=== PATIENT | male | born 1965 | race Caucasian/White ===

== ENCOUNTER → 2016-07-07 | Outpatient (CLI) | payer OTHER ==
[2016-07-10 11:43] LABS: Alternaria alternata IgE <0.35 kU/L (<0.35); Asperg. fumagatus IgE <0.35 kU/L (<0.35); Asperg. fumagatus IgE Class CLASS 0; Cat Epith & Dander IgE <0.35 kU/L (<0.35); Cat Epith & Dander IgE Class CLASS 0; Clad herbarum IgE <0.35 kU/L (<0.35); Clad herbarum IgE Class CLASS 0; Com. Pigweed IgE <0.35 kU/L (<0.35); Com. Pigweed IgE Class CLASS 0; Common Ragweed IgE Class CLASS 0; Cow's Milk IgE Class CLASS 0; Dermato. farinae IgE <0.35 kU/L (<0.35); Dermato. farinae IgE Class CLASS 0; House Dust (Greer) IgE 0.77 kU/L (<0.35); House Dust (Greer) IgE Class CLASS II; Maple (Box Elder) IgE <0.35 kU/L (<0.35); Maple (Box Elder) IgE Class CLASS 0; Penicillium notatum IgE Class CLASS 0; Timothy Grass IgE <0.35 kU/L (<0.35); Timothy Grass IgE Class CLASS 0
[2016-07-17 08:35] LABS: Mis test requested (Blood) Hypersens.PneumoEval
== END | disposition home or self-care (01) ==
LOC: LABWHC1 14:39
PROVIDERS: ATTEND Internal Medicine Sleep Medicine
DX: B44.89 Other forms of aspergillosis (principal); R53.83 Other fatigue
CPT/HCPCS: 36415; 82785; 84132; 86001; 86003; 86606; 86609; 86644

== ENCOUNTER 2016-11-28 16:41 | Emergency (ER) | payer OTHER ==
--- NOTE | 2016-11-28 16:50 | ED ---
Nausea/Vomiting/Diarrhea HPI <Afshin Garcia - Last Filed: 11/28/16 20:23> - General Source: RN notes reviewed, old records reviewed <Gretchen Godwin - Last Filed: 11/28/16 20:35> - General Stated complaint: Nausea Time Seen by Provider: 11/28/16 16:47 - History of Present Illness Initial comments: 51-year-old male presents emergency department with chief complaint of nausea and vomiting for the past few weeks. Patient also reports that he's had some intermittent right upper quadrant tenderness. He has a history of appendectomy and cholecystectomy. Patient has past medical history of asthma, COPD, history of CVA, diabetes, hypertension, hyperlipidemia and memory impairment. Patient reports that his blood sugars have been running lower than usual because he's been not been able to tolerate any food. Patient reports that his blood sugar at the doctor's office was 139. Patient reports that he was seen in the Dr. office recently and they encouraged him to come the emergency department for further evaluation due to the continuous vomiting these had. Patient denies any difficulty with urinating or changes in bowel movements including diarrhea. Patient denies any fever or chills. He reports he occasionally felt dizzy. He denies any chest pain. He does state he has history of asthma and COPD so he is continuously short of breath. Patient is extremely hard of hearing, does hear better on the right ear. (Gretchen Godwin) - Related Data Home Medications Medication Instructions Recorded Confirmed Albuterol Sulfate [Ventolin HFA] 2 puff INHALATION RT-QID 03/03/14 11/28/16 Budesonide [Pulmicort] 0.5 mg INHALATION RT-BID 03/03/14 11/28/16 Budesonide/Formoterol Fumarate 2 puff INHALATION RT-BID 03/03/14 11/28/16 [Symbicort 80-4.5 Mcg Inhaler] Divalproex ER [Depakote ER] 250 mg PO BID 03/03/14 11/28/16 Doxazosin [Cardura] 1 mg PO DAILY 03/03/14 11/28/16 Ferrous Sulfate [Feosol] 325 mg PO HS 03/03/14 11/28/16 Losartan Potassium [Cozaar] 50 mg PO DAILY 03/03/14 11/28/16 Methocarbamol [Robaxin] 500 mg PO TID 03/03/14 11/28/16 Montelukast [Singulair] 10 mg PO HS 03/03/14 11/28/16 Nitroglycerin Sl Tabs [Nitrostat] 0.4 mg SUBLINGUAL Q5M PRN 03/03/14 11/28/16 Ranitidine HCl [Zantac] 150 mg PO BID 03/03/14 11/28/16 Levothyroxine Sodium [Synthroid] 50 mcg PO DAILY 12/19/14 11/28/16 Theophylline 12 Hour [Pedro Luis-Dur] 300 mg PO BID 12/19/14 11/28/16 Atorvastatin [Lipitor] 40 mg PO HS 12/04/15 11/28/16 Metoclopramide [Reglan] 5 mg PO TID 12/04/15 11/28/16 predniSONE 5 mg PO DAILY 12/04/15 11/28/16 Fenofibrate [Lofibra] 160 mg PO DAILY 05/20/16 11/28/16 Insulin Aspart (For Pump) [NovoLOG See Protocol SQ-PUMP CONTINUOUS 05/20/1603/08 (For Pump)] Omeprazole 40 mg PO BID 05/20/16 11/28/16 Potassium Chloride [Klor-Con 20] 20 meq PO BID 05/20/16 11/28/16 Aspirin 325 mg PO DAILY 11/28/16 11/28/16 Ergocalciferol (Vitamin D2) 50,000 unit PO TH 11/28/16 11/28/16 [Vitamin D2] levETIRAcetam [Keppra Xr] 500 mg PO TID 11/28/16 11/28/16 Previous Rx's Medication Instructions Recorded Ipratropium-Albuterol Nebulize 3 ml INHALATION RT-QID #120 06/08/16 [Duoneb 0.5 mg-3 mg/3 ml Soln] ampul.neb Ondansetron [Zofran] 4 mg PO Q8HR PRN #8 tab 11/28/16 Allergies Allergy/AdvReac Type Severity Reaction Status Date / Time carbamazepine [From Tegretol] Allergy Rash/Hives Verified 08/06/16 16:26 fluticasone propionate Allergy Rash/Hives Verified 08/06/16 16:26 [From Advair Diskus] insulin glulisine Allergy Unknown Verified 08/06/16 16:26 [From Apidra] insulin lispro [From Humalog] Allergy Unknown Verified 08/06/16 16:26 lactose Allergy Rash/Hives Verified 08/06/16 16:26 pork derived (porcine) Allergy Rash/Hives Verified 08/06/16 16:26 prochlorperazine edisylate Allergy Rash/Hives Verified 08/06/16 16:26 [From Compazine] prochlorperazine maleate Allergy Rash/Hives Verified 08/06/16 16:26 [From Compazine] salmeterol xinafoate Allergy Rash/Hives Verified 08/06/16 16:26 [From Advair Diskus] sulfamethoxazole Allergy Rash/Hives Verified 08/06/16 16:26 [From Bactrim] trimethoprim [From Bactrim] Allergy Rash/Hives Verified 08/06/16 16:26 Review of Systems ROS Other: All systems not noted in ROS Statement are negative. <Afshin Garcia - Last Filed: 11/28/16 20:23> ROS Other: All systems not noted in ROS Statement are negative. <Gretchen Godwin - Last Filed: 11/28/16 20:35> ROS Statement: Those systems with pertinent positive or pertinent negative responses have been documented in the HPI. Past Medical History Past Medical History: Asthma, Chest Pain / Angina, Heart Failure, COPD, CVA/TIA , Diabetes Mellitus, GERD/Reflux, Hyperlipidemia, Hypertension, Memory Impairment, Myocardial Infarction (CT), Musculoskeletal Disorder, Osteoarthritis (OA), Pneumonia, Seizure Disorder, Thyroid Disorder Additional Past Medical History / Comment(s): SPINAL ARTHRITIS, LEFT SIDED WEAKNESS FROM CVA IN 2001. immobile, neuropathy, DM -HAS INSULIN PUMP IRREG HEART BEAT,HIATAL HERNIA,CONSTIPATION Last Myocardial Infarction Date:: 2003 History of Any Multi-Drug Resistant Organisms: None Reported Past Surgical History: Appendectomy, Cholecystectomy Additional Past Surgical History / Comment(s): right elbow, knee, and wrist. RIGHT CARPAL TUNNEL SURGERY Past Anesthesia/Blood Transfusion Reactions: No Reported Reaction, Postoperative Nausea & Vomiting (PONV) Past Psychological History: No Psychological Hx Reported Additional Psychological History / Comment(s): DYSLEXIA Smoking Status: Never smoker Past Alcohol Use History: None Reported Past Drug Use History: None Reported - Past Family History Father Family Medical History: Coronary Artery Disease (CAD), CVA/TIA, Diabetes Mellitus, Hyperlipidemia, Myocardial Infarction (CT), Seizure Disorder Mother Family Medical History: Diabetes Mellitus, Fibromyalgia Brother(s) Family Medical History: Hyperlipidemia <Gretchen Godwin - Last Filed: 11/28/16 20:35> General Exam <Afshin Garcia - Last Filed: 11/28/16 20:23> General appearance: alert, in no apparent distress Head exam: Present: atraumatic, normocephalic, normal inspection Eye exam: Present: normal appearance, PERRL, EOMI. Absent: scleral icterus, conjunctival injection, periorbital swelling ENT exam: Present: normal exam, mucous membranes moist Neck exam: Present: normal inspection. Absent: tenderness, meningismus, lymphadenopathy Respiratory exam: Present: normal lung sounds bilaterally. Absent: respiratory distress, wheezes, rales, rhonchi, stridor Cardiovascular Exam: Present: regular rate, normal rhythm, normal heart sounds. Absent: systolic murmur, diastolic murmur, rubs, gallop, clicks GI/Abdominal exam: Present: soft, tenderness (Patient has some right upper quadrant tenderness. No evidence of peritonitis or rebound tenderness.), normal bowel sounds. Absent: distended, guarding, rebound, rigid Extremities exam: Present: normal inspection, full ROM, normal capillary refill. Absent: tenderness, pedal edema, joint swelling, calf tenderness Back exam: Present: normal inspection Neurological exam: Present: alert, oriented X3, CN II-XII intact Psychiatric exam: Present: normal affect, normal mood Skin exam: Present: warm, dry, intact, normal color. Absent: rash <Gretchen Godwin - Last Filed: 11/28/16 20:35> - General Exam Comments Initial Comments: Pleasant 51-year-old male. No acute distress. (Gretchen Godwin) Medical Decision Making - Lab Data Result diagrams: 11/28/16 18:30 11/28/16 18:30 <fAshin Garcia - Last Filed: 11/28/16 20:23> - Lab Data Result diagrams: 11/28/16 18:30 11/28/16 18:30 - Radiology Data Radiology results: report reviewed <Gretchen Godwin - Last Filed: 11/28/16 20:35> - Medical Decision Making The patient was seen and examined. All diagnostics were reviewed. The exact cause of his symptoms are not definitively determined. The possibility of them being related to a gastritis or gastroparesis or peptic ulcer disease certainly is possible. Overall, it is felt as though he is stable for further outpatient treatment. He apparently is having an EGD scheduled in the near future and it is thought that this would be beneficial. The patient will be prescribed antiemetics. I have discussed the case with the PA and I agree with the findings as documented. (Afshin Garcia) 51-year-old male presents emergency department with chief complaint of nausea and vomiting for the past few weeks. Patient also reports that he's had some intermittent right upper quadrant tenderness. He has a history of appendectomy and cholecystectomy. Patient has past medical history of asthma, COPD, history of CVA, diabetes, hypertension, hyperlipidemia and memory impairment. Patient reports that his blood sugars have been running lower than usual because he's been not been able to tolerate any food. Patient reports that his blood sugar at the doctor's office was 139. Patient reports that he was seen in the Dr. office recently and they encouraged him to come the emergency department for further evaluation due to the continuous vomiting these had. Patient denies any difficulty with urinating or changes in bowel movements including diarrhea. Patient denies any fever or chills. He reports he occasionally felt dizzy. He denies any chest pain. He does state he has history of asthma and COPD so he is continuously short of breath. Patient is extremely hard of hearing, does hear better on the right ear. Labwork is essentially benign besides low potassium at 2.3. Patient was given 40 mg of K-Dur. Discussed the findings with the patient. Chest x-ray and KUB are negative for any acute process. Discussed that patient likely has either peptic ulcer gastroparesis. Discussed that they need to have a scope completed. Patient family understands treatment plan will comply. Discussed second discharged him with a short course of Zofran for nausea and write them for the medication to go home with. Patient's family agrees to treatment plan will comply. Given a referral for GI specialist. (Gretchen Godwin) - Lab Data Lab Results 11/28/16 11/28/16 11/28/16 Range/Units 16:54 18:30 18:30 WBC 9.3 (3.8-10.6) k/uL RBC 4.11 L (4.30-5.90) m/uL Hgb 13.2 (13.0-17.5) gm/dL Hct 38.3 L (39.0-53.0) % MCV 93.1 (80.0-100.0) fL MCH 32.2 (25.0-35.0) pg MCHC 34.6 (31.0-37.0) g/dL RDW 13.6 (11.5-15.5) % Plt Count 189 (150-450) k/uL Neutrophils % 83 % Lymphocytes % 10 % Monocytes % 4 % Eosinophils % 2 % Basophils % 0 % Neutrophils # 7.7 (1.3-7.7) k/uL Lymphocytes # 0.9 L (1.0-4.8) k/uL Monocytes # 0.4 (0-1.0) k/uL Eosinophils # 0.1 (0-0.7) k/uL Basophils # 0.0 (0-0.2) k/uL PT (9.0-12.0) sec INR (<1.1) APTT (22.0-30.0) sec Sodium (137-145) mmol/L Potassium (3.5-5.1) mmol/L Chloride (98-107) mmol/L Carbon Dioxide (22-30) mmol/L Anion Gap mmol/L BUN (9-20) mg/dL Creatinine (0.66-1.25) mg/dL Est GFR (MDRD) Af Amer (>60 ml/min/1.73 sqM) Est GFR (MDRD) Non-Af (>60 ml/min/1.73 sqM) Glucose (74-99) mg/dL POC Glucose (mg/dL) 144 H (75-99) mg/dL POC Glu [employer] Advisor ID [place], [place] Calcium (8.4-10.2) mg/dL Magnesium (1.6-2.3) mg/dL Total Bilirubin (0.2-1.3) mg/dL AST (17-59) U/L ALT (21-72) U/L Alkaline Phosphatase (38-126) U/L Total Creatine Kinase 34 L (55-170) U/L CK-MB (CK-2) 0.4 (0.0-2.4) ng/mL CK-MB (CK-2) Rel Index 1.2 Troponin I <0.012 (0.000-0.034) ng/mL Total Protein (6.3-8.2) g/dL Albumin (3.5-5.0) g/dL Amylase (30-110) U/L Lipase (23-300) U/L Urine Color Urine Appearance (Clear) Urine pH (5.0-8.0) Ur Specific [place] (1.001-1.035) Urine Protein (Negative) Urine Glucose (UA) (Negative) Urine Ketones (Negative) Urine Blood (Negative) Urine Nitrite (Negative) Urine Bilirubin (Negative) Urine Urobilinogen (<2.0) mg/dL Ur Leukocyte Esterase (Negative) 11/28/16 11/28/16 11/28/16 Range/Units 18:30 18:30 18:30 WBC (3.8-10.6) k/uL RBC (4.30-5.90) m/uL Hgb (13.0-17.5) gm/dL Hct (39.0-53.0) % MCV (80.0-100.0) fL MCH (25.0-35.0) pg MCHC (31.0-37.0) g/dL RDW (11.5-15.5) % Plt Count (150-450) k/uL Neutrophils % % Lymphocytes % % Monocytes % % Eosinophils % % Basophils % % Neutrophils # (1.3-7.7) k/uL Lymphocytes # (1.0-4.8) k/uL Monocytes # (0-1.0) k/uL Eosinophils # (0-0.7) k/uL Basophils # (0-0.2) k/uL PT 10.5 (9.0-12.0) sec INR 1.0 (<1.1) APTT 20.5 L (22.0-30.0) sec Sodium 136 L (137-145) mmol/L Potassium 2.9 L* (3.5-5.1) mmol/L Chloride 91 L (98-107) mmol/L Carbon Dioxide 34 H (22-30) mmol/L Anion Gap 11 mmol/L BUN 6 L (9-20) mg/dL Creatinine 0.83 (0.66-1.25) mg/dL Est GFR (MDRD) Af Amer >60 (>60 ml/min/1.73 sqM) Est GFR (MDRD) Non-Af >60 (>60 ml/min/1.73 sqM) Glucose 133 H (74-99) mg/dL POC Glucose (mg/dL) (75-99) mg/dL POC Glu Camp Advisor ID Calcium 8.2 L (8.4-10.2) mg/dL Magnesium 2.3 (1.6-2.3) mg/dL Total Bilirubin 0.8 (0.2-1.3) mg/dL AST 14 L (17-59) U/L ALT 10 L (21-72) U/L Alkaline Phosphatase 96 (38-126) U/L Total Creatine Kinase (55-170) U/L CK-MB (CK-2) (0.0-2.4) ng/mL CK-MB (CK-2) Rel Index Troponin I (0.000-0.034) ng/mL Total Protein 6.4 (6.3-8.2) g/dL Albumin 3.4 L (3.5-5.0) g/dL Amylase 38 (30-110) U/L Lipase 41 (23-300) U/L Urine Color Yellow Urine Appearance Clear (Clear) Urine pH 6.5 (5.0-8.0) Ur Specific [place] 1.011 (1.001-1.035) Urine Protein Negative (Negative) Urine Glucose (UA) Negative (Negative) Urine Ketones Negative (Negative) Urine Blood Negative (Negative) Urine Nitrite Negative (Negative) Urine Bilirubin Negative (Negative) Urine Urobilinogen <2.0 (<2.0) mg/dL Ur Leukocyte Esterase Negative (Negative) 11/28/16 17:23 EKG shows accelerated junctional rhythm. QRS sabianist 86 ms. QT QTc is 366/ 427 ms. 11/28/16 18:15 Repeat EKG performed at 1750. This shows normal sinus rhythm. Nonspecific T- wave abnormality. Major rate 77 bpm period. Bowl 54 ms. QRS are to 86 [place] 25393/454 ms. (Gretchen Godwin) - Radiology Data Mild subsegmental atelectasis or scar in the right lower lobe same or increased compared to last exam. Old right rib fractures. An acute abdomen. Pleural diaphragmatic scarring in the right lateral lung base without change compared to old exam. (Gretchen Godwin) Disposition <KobeAfshin strickland - Last Filed: 11/28/16 20:23> Time of Disposition: 20:28 <Gretchen Godwin - Last Filed: 11/28/16 20:35> Clinical Impression: Nausea & vomiting, Hypokalemia Disposition: HOME SELF-CARE Condition: Good Instructions: Acute Nausea and Vomiting (ED) Additional Instructions: Follow-up with GI specialist and primary care provider within the next 2-3 days. Return to the emergency department if any alarming signs or symptoms occur. Prescriptions: Ondansetron [Zofran] 4 mg PO Q8HR PRN #8 tab PRN Reason: Nausea And Vomiting Referrals: Ladarius Celis MD [Primary Care Provider] - 1-2 days Pa Amado MD [STAFF PHYSICIAN] - 1-2 days
[2016-11-28] MEDS ORDERED: ONDANSETRON 4 MG/2 ML VIAL IVP STA (16:55)
[2016-11-28] MEDS ORDERED: SODIUM CHLORIDE 0.9% 1,000 ML IV STA ×2 (16:55)
[2016-11-28 16:56] VITALS: RESP 18; TEMP 98
[2016-11-28 17:03] LABS: Glucose,Whole Blood 144 mg/dL (75-99)
--- NOTE | 2016-11-28 18:22 | XR ---
EXAMINATION TYPE: XR chest 2V DATE OF EXAM: 11/28/2016 COMPARISON: 06/05/2016 HISTORY: Vomiting TECHNIQUE: Frontal and lateral views of the chest are obtained. FINDINGS: There are several old healed right posterior lateral rib fractures. There is minimal linea r density adjacent to the fractures consistent with pulmonary scarring. Left lung is clear. There is no heart failure. Heart size is normal. There is no pleural effusion. IMPRESSION: Mild subsegmental atelectasis or scarring in the right lower lobe is the same or increas ed compared to last exam. Old right rib fractures.
--- NOTE | 2016-11-28 18:23 | XR ---
EXAMINATION TYPE: XR KUB DATE OF EXAM: 11/28/2016 COMPARISON: 05/20/2016 HISTORY: Vomiting TECHNIQUE: 2 views FINDINGS: There is no sign of intestinal obstruction or pneumoperitoneum. Fecal pattern is normal. Th ere is some blunting of right costophrenic angle. There are old right-sided healed rib fractures. The re are no pathologic calcifications over the kidneys. IMPRESSION: Nonacute abdomen. There is pleural diaphragmatic scarring at the lateral right lung base without change compared to old exam.
[2016-11-28 18:43] LABS: Basophils % (A) 0 %; CH 32.5; Eosinophils # (A) 0.1 k/uL (0-0.7); Eosinophils % (A) 2 %; HCT 38.3 % (39.0-53.0); HDW 3.11; HGB 13.2 gm/dL (13.0-17.5); Luc # (Auto) 0.11; Luc % (Auto) 1; Lymphocytes # (A) 0.9 k/uL (1.0-4.8); Lymphocytes % (A) 10 %; MCH 32.2 pg (25.0-35.0); MCHC 34.6 g/dL (31.0-37.0); MCV 93.1 fL (80.0-100.0); Mean Platelet Volume 7.3; Monocytes # (A) 0.4 k/uL (0-1.0); Monocytes % (A) 4 %; Neutrophils # (A) 7.7 k/uL (1.3-7.7); Neutrophils % (A) 83 %; RBC 4.11 m/uL (4.30-5.90); RDW 13.6 % (11.5-15.5); WBC 9.3 k/uL (3.8-10.6); WBC (Perox) 9.42
[2016-11-28 18:55] LABS: ALT 10 U/L (21-72); AST 14 U/L (17-59); Alkaline Phosphatase 96 U/L (38-126); Amylase 38 U/L (30-110); Anion Gap 11 mmol/L; Blood Urea Nitrogen 6 mg/dL (9-20); Calcium 8.2 mg/dL (8.4-10.2); Carbon Dioxide 34 mmol/L (22-30); Chloride 91 mmol/L (98-107); Glucose 133 mg/dL (74-99); Magnesium 2.3 mg/dL (1.6-2.3); Non-African American GFR(MDRD) >60 (>60 ml/min/1.73 sqM); Sodium 136 mmol/L (137-145); Total Bilirubin 0.8 mg/dL (0.2-1.3); Total Protein 6.4 g/dL (6.3-8.2)
[2016-11-28 18:57] LABS: Prothrombin Time 10.5 sec (9.0-12.0)
[2016-11-28 18:58] LABS: Potassium 2.9 mmol/L (3.5-5.1)
[2016-11-28 19:01] LABS: Partial Thromboplastin Time 20.5 sec (22.0-30.0)
[2016-11-28 19:02] LABS: Creatine Kinase 34 U/L (55-170)
[2016-11-28 19:14] LABS: Creatine Kinase MB 0.4 ng/mL (0.0-2.4); Troponin I <0.012 ng/mL (0.000-0.034)
[2016-11-28] MEDS ORDERED: METOCLOPRAMIDE 5 MG/ML 2 ML VIAL IVP STA (19:25)
[2016-11-28] MEDS ORDERED: diphenhydrAMINE 50 MG/ML 1 ML VIAL IVP STA (19:25)
[2016-11-28] MEDS ORDERED: POTASSIUM CHLORIDE ER 20 MEQ TAB.ER PO STA (19:30)
[2016-11-28 20:04] LABS: Appearance,Urine Clear (Clear); Bilirubin,Urine Negative (Negative); Glucose,Urine (UA) Negative (Negative); Ketones,Urine Negative (Negative); Leukocyte Esterase,Urine Negative (Negative); Nitrite,Urine Negative (Negative); PH, Urine 6.5 (5.0-8.0); Protein,Urine Negative (Negative); Specific Gravity,Urine 1.011 (1.001-1.035); UA Billing (MACRO vs. MICRO) CHEM; Urobilinogen,Urine <2.0 mg/dL (<2.0)
[2016-11-28] MEDS ORDERED: POTASSIUM CHLORIDE ORAL LIQUID 40 MEQ/30 ML CUP PO STA (20:04)
[2016-11-28] MEDS ORDERED: ONDANSETRON 4 MG ODT STARTER PACK 2 TAB BTL PO STA (20:27)
[2016-11-28 20:34] VITALS: BP 162/76; PULSE 87
== END 2016-11-28 20:48 | disposition home or self-care (01) ==
LOC: EC 16:41
DX: E87.6 Hypokalemia (principal); R11.2 Nausea with vomiting, unspecified; J44.9 Chronic obstructive pulmonary disease, unspecified; I10 Essential (primary) hypertension; E78.5 Hyperlipidemia, unspecified; M19.90 Unspecified osteoarthritis, unspecified site; E07.9 Disorder of thyroid, unspecified; G40.909 Epilepsy, unspecified, not intractable, without status epilepticus; E11.40 Type 2 diabetes mellitus with diabetic neuropathy, unspecified; J45.909 Unspecified asthma, uncomplicated; K21.9 Gastro-esophageal reflux disease without esophagitis; Z90.49 Acquired absence of other specified parts of digestive tract; Z88.8 Allergy status to other drugs, medicaments and biological substances; Z91.011 Allergy to milk products; Z88.2 Allergy status to sulfonamides; Z79.51 Long term (current) use of inhaled steroids; Z79.82 Long term (current) use of aspirin; Z79.52 Long term (current) use of systemic steroids; Z79.4 Long term (current) use of insulin; Z79.899 Other long term (current) drug therapy
CPT/HCPCS: 99284; 96374; 96375 ×2; 96361; 36415; 93005; 80053; 82150; 82550; 82553; 83690; 83735; 84484; 85025; 85610; 85730; 81003; 71020; 74000; J1200; J2765; J2405; S0119

== ENCOUNTER → 2016-12-03 | Outpatient (CLI) | payer OTHER ==
--- NOTE | 2016-12-03 15:24 | CT ---
EXAMINATION TYPE: CT brain wo con DATE OF EXAM: 12/03/2016 COMPARISON: 06/21/2012 INDICATION: Partial epilepsy DLP: 1047.10 mGycm, Automated exposure control for dose reduction was used. CONTRAST: None CT of the brain is performed utilizing 3 mm thick sections through the posterior fossa and 3 mm thick sections through the remaining calvarium. Study is performed within 24 hours of arrival to the hosp [facility]. No abnormal hyperdensity is present to suggest an acute intracranial hemorrhage. No mass lesion is evident. No acute infarcts are evident. Ventricles and sulci are appropriate for the patient age. Paranasal sinuses and mastoid air cells within the [id number] are clear. IMPRESSIONS: 1. Normal CT Brain
== END | disposition home or self-care (01) ==
LOC: RADCTMAIN 13:48
PROVIDERS: ATTEND Psychiatry & Neurology Neurology
DX: G40.209 Localization-related (focal) (partial) symptomatic epilepsy and epileptic syndromes with complex partial seizures, not intractable, without status epilepticus (principal)
CPT/HCPCS: 70450

== ENCOUNTER 2017-03-15 23:11 | Observation (INO) | payer OTHER ==
[2017-03-15 23:23] LABS: Glucose,Whole Blood 281 mg/dL (75-99)
[2017-03-16 00:01] LABS: Basophils % (A) 0 %; CH 33.6; CHCM 33.3; Eosinophils # (A) 0.1 k/uL (0-0.7); Eosinophils % (A) 2 %; HCT 39.8 % (39.0-53.0); HDW 2.63; HGB 12.5 gm/dL (13.0-17.5); Luc % (Auto) 2; Lymphocytes # (A) 1.1 k/uL (1.0-4.8); Lymphocytes % (A) 18 %; MCH 31.8 pg (25.0-35.0); MCHC 31.3 g/dL (31.0-37.0); MCV 101.4 fL (80.0-100.0); Macrocytosis Slight; Monocytes # (A) 0.3 k/uL (0-1.0); Monocytes % (A) 5 %; Neutrophils # (A) 4.5 k/uL (1.3-7.7); Neutrophils % (A) 74 %; RBC 3.93 m/uL (4.30-5.90); RDW 14.5 % (11.5-15.5); WBC 6.1 k/uL (3.8-10.6); WBC (Perox) 6.78
--- NOTE | 2017-03-16 00:09 | ED ---
Seizure HPI - General Chief Complaint: Seizure Stated Complaint: Seizure Time Seen by Provider: 03/15/17 23:14 Source: patient, family, EMS Mode of arrival: EMS - History of Present Illness Initial Comments: This patient is a 52-year-old man who presents to be evaluated when he believes may have been a seizure. The patient reports having shaking tonight. The symptoms reminded him of a previous seizure that he had had. The patient does take Depakote and Keppra. He states he has been compliant with his medications. There was no loss of consciousness. There was no urinary incontinence. The patient did not fall or have any trauma. He was however too weak to get out of his wheelchair to transfer. MD Complaint: possible seizure, shaking Onset/Timin -: hour(s) Description of Episode: other ("Twitching") -: second(s) Witnessed: yes - by bystander Trauma: No Seizure History: known seizure disorder Place: home Possible Precipitating Event: none Associated Symptoms: other (Left facial paresthesia) - Related Data Home Medications Medication Instructions Recorded Confirmed Albuterol Sulfate [Ventolin HFA] 2 puff INHALATION RT-QID 03/03/14 11/28/16 Budesonide [Pulmicort] 0.5 mg INHALATION RT-BID 03/03/14 11/28/16 Budesonide/Formoterol Fumarate 2 puff INHALATION RT-BID 03/03/14 11/28/16 [Symbicort 80-4.5 Mcg Inhaler] Divalproex ER [Depakote ER] 250 mg PO BID 03/03/14 11/28/16 Doxazosin [Cardura] 1 mg PO DAILY 03/03/14 11/28/16 Ferrous Sulfate [Feosol] 325 mg PO HS 03/03/14 11/28/16 Losartan Potassium [Cozaar] 50 mg PO DAILY 03/03/14 11/28/16 Methocarbamol [Robaxin] 500 mg PO TID 03/03/14 11/28/16 Montelukast [Singulair] 10 mg PO HS 03/03/14 11/28/16 Nitroglycerin Sl Tabs [Nitrostat] 0.4 mg SUBLINGUAL Q5M PRN 03/03/14 11/28/16 Ranitidine HCl [Zantac] 150 mg PO BID 03/03/14 11/28/16 Levothyroxine Sodium [Synthroid] 50 mcg PO DAILY 12/19/14 11/28/16 Theophylline 12 Hour [Pedro Luis-Dur] 300 mg PO BID 12/19/14 11/28/16 Atorvastatin [Lipitor] 40 mg PO HS 12/04/15 11/28/16 Metoclopramide [Reglan] 5 mg PO TID 12/04/15 11/28/16 predniSONE 5 mg PO DAILY 12/04/15 11/28/16 Fenofibrate [Lofibra] 160 mg PO DAILY 05/20/16 11/28/16 Insulin Aspart (For Pump) [NovoLOG See Protocol SQ-PUMP CONTINUOUS 05/20/1603/08 (For Pump)] Omeprazole 40 mg PO BID 05/20/16 11/28/16 Potassium Chloride [Klor-Con 20] 20 meq PO BID 05/20/16 11/28/16 Aspirin 325 mg PO DAILY 11/28/16 11/28/16 Ergocalciferol (Vitamin D2) 50,000 unit PO TH 11/28/16 11/28/16 [Vitamin D2] levETIRAcetam [Keppra Xr] 500 mg PO TID 11/28/16 11/28/16 Previous Rx's Medication Instructions Recorded Ipratropium-Albuterol Nebulize 3 ml INHALATION RT-QID #120 06/08/16 [Duoneb 0.5 mg-3 mg/3 ml Soln] ampul.neb Ondansetron [Zofran] 4 mg PO Q8HR PRN #8 tab 11/28/16 Allergies Allergy/AdvReac Type Severity Reaction Status Date / Time carbamazepine [From Tegretol] Allergy Rash/Hives Verified 08/06/16 16:26 fluticasone propionate Allergy Rash/Hives Verified 08/06/16 16:26 [From Advair Diskus] insulin glulisine Allergy Unknown Verified 08/06/16 16:26 [From Apidra] insulin lispro [From Humalog] Allergy Unknown Verified 08/06/16 16:26 lactose Allergy Rash/Hives Verified 08/06/16 16:26 pork derived (porcine) Allergy Rash/Hives Verified 08/06/16 16:26 prochlorperazine edisylate Allergy Rash/Hives Verified 08/06/16 16:26 [From Compazine] prochlorperazine maleate Allergy Rash/Hives Verified 08/06/16 16:26 [From Compazine] salmeterol xinafoate Allergy Rash/Hives Verified 08/06/16 16:26 [From Advair Diskus] sulfamethoxazole Allergy Rash/Hives Verified 08/06/16 16:26 [From Bactrim] trimethoprim [From Bactrim] Allergy Rash/Hives Verified 08/06/16 16:26 Review of Systems ROS Statement: Those systems with pertinent positive or pertinent negative responses have been documented in the HPI. ROS Other: All systems not noted in ROS Statement are negative. Constitutional: Denies: fever, chills Respiratory: Denies: cough, dyspnea Cardiovascular: Denies: chest pain, palpitations, syncope Gastrointestinal: Denies: abdominal pain, vomiting, diarrhea Genitourinary: Denies: dysuria, hematuria Musculoskeletal: Denies: back pain Skin: Denies: rash Neurological: Reports: paresthesias. Denies: headache, weakness, numbness Past Medical History Past Medical History: Asthma, Chest Pain / Angina, Heart Failure, COPD, CVA/TIA , Diabetes Mellitus, GERD/Reflux, Hyperlipidemia, Hypertension, Memory Impairment, Myocardial Infarction (CO), Musculoskeletal Disorder, Osteoarthritis (OA), Pneumonia, Seizure Disorder, Thyroid Disorder Additional Past Medical History / Comment(s): SPINAL ARTHRITIS, LEFT SIDED WEAKNESS FROM CVA IN 2001. immobile, neuropathy, DM -HAS INSULIN PUMP IRREG HEART BEAT,HIATAL HERNIA,CONSTIPATION Last Myocardial Infarction Date:: 2003 History of Any Multi-Drug Resistant Organisms: None Reported Past Surgical History: Appendectomy, Cholecystectomy Additional Past Surgical History / Comment(s): right elbow, knee, and wrist. RIGHT CARPAL TUNNEL SURGERY Past Anesthesia/Blood Transfusion Reactions: No Reported Reaction, Postoperative Nausea & Vomiting (PONV) Past Psychological History: No Psychological Hx Reported Smoking Status: Never smoker Past Alcohol Use History: None Reported Past Drug Use History: None Reported - Past Family History Father Family Medical History: Coronary Artery Disease (CAD), CVA/TIA, Diabetes Mellitus, Hyperlipidemia, Myocardial Infarction (CO), Seizure Disorder Mother Family Medical History: Diabetes Mellitus, Fibromyalgia Brother(s) Family Medical History: Hyperlipidemia General Exam General appearance: alert, in no apparent distress, obese Head exam: Present: atraumatic, normocephalic Eye exam: Present: normal appearance. Absent: scleral icterus, conjunctival injection ENT exam: Present: normal oropharynx Neck exam: Present: normal inspection Respiratory exam: Present: wheezes. Absent: respiratory distress, rales, rhonchi, stridor, accessory muscle use, decreased breath sounds Cardiovascular Exam: Present: regular rate, normal rhythm, normal heart sounds. Absent: systolic murmur, diastolic murmur, rubs, gallop GI/Abdominal exam: Present: soft. Absent: tenderness, guarding, rebound, mass Extremities exam: Present: normal inspection, normal capillary refill. Absent: pedal edema, calf tenderness Back exam: Present: normal inspection. Absent: CVA tenderness (R), CVA tenderness (L) Neurological exam: Present: alert, CN II-XII intact, motor sensory deficit (The patient has left leg weakness that he states is residual from his previous stroke. He denies any worsening today). Absent: oriented X3 Skin exam: Present: warm, dry, intact, normal color. Absent: rash Course Vital Signs 03/15/17 03/16/17 03/16/17 23:19 00:43 01:35 Temperature 99.7 F H Pulse Rate 79 71 68 Respiratory 18 18 18 Rate Blood Pressure 180/81 150/68 156/65 O2 Sat by Pulse 97 97 94 L Oximetry 03/16/17 02:45 Temperature Pulse Rate 66 Respiratory 18 Rate Blood Pressure 154/69 O2 Sat by Pulse 96 Oximetry Medical Decision Making - Medical Decision Making The patient's symptoms sound more like TIA versus stroke to me than like a seizure. The patient's symptoms have improved, there are only remains a little bit of a facial paresthesia or numbness. There is no new motor deficit, only the previous left leg weakness. Given the rapid resolution patient not a TPA candidate. We'll admit the patient to have further neurology consultation. - Lab Data Result diagrams: 03/15/17 23:43 03/15/17 23:43 Lab Results 03/15/17 03/15/17 03/15/17 Range/Units 23:19 23:43 23:43 WBC 6.1 (3.8-10.6) k/uL RBC 3.93 L (4.30-5.90) m/uL Hgb 12.5 L (13.0-17.5) gm/dL Hct 39.8 (39.0-53.0) % MCV 101.4 H (80.0-100.0) fL MCH 31.8 (25.0-35.0) pg MCHC 31.3 (31.0-37.0) g/dL RDW 14.5 (11.5-15.5) % Plt Count 171 (150-450) k/uL Neutrophils % 74 % Lymphocytes % 18 % Monocytes % 5 % Eosinophils % 2 % Basophils % 0 % Neutrophils # 4.5 (1.3-7.7) k/uL Lymphocytes # 1.1 (1.0-4.8) k/uL Monocytes # 0.3 (0-1.0) k/uL Eosinophils # 0.1 (0-0.7) k/uL Basophils # 0.0 (0-0.2) k/uL Macrocytosis Slight Sodium (137-145) mmol/L Potassium (3.5-5.1) mmol/L Chloride (98-107) mmol/L Carbon Dioxide (22-30) mmol/L Anion Gap mmol/L BUN (9-20) mg/dL Creatinine (0.66-1.25) mg/dL Est GFR (MDRD) Af Amer (>60 ml/min/1.73 sqM) Est GFR (MDRD) Non-Af (>60 ml/min/1.73 sqM) Glucose (74-99) mg/dL POC Glucose (mg/dL) 281 H (75-99) mg/dL POC Glu Brush Painter ID Cait, Debi Calcium (8.4-10.2) mg/dL Total Bilirubin (0.2-1.3) mg/dL AST (17-59) U/L ALT (21-72) U/L Alkaline Phosphatase (38-126) U/L Total Protein (6.3-8.2) g/dL Albumin (3.5-5.0) g/dL Valproic Acid ug/mL Serum Alcohol mg/dL Acetone, Qual Negative (Negative) 03/15/17 Range/Units 23:43 WBC (3.8-10.6) k/uL RBC (4.30-5.90) m/uL Hgb (13.0-17.5) gm/dL Hct (39.0-53.0) % MCV (80.0-100.0) fL MCH (25.0-35.0) pg MCHC (31.0-37.0) g/dL RDW (11.5-15.5) % Plt Count (150-450) k/uL Neutrophils % % Lymphocytes % % Monocytes % % Eosinophils % % Basophils % % Neutrophils # (1.3-7.7) k/uL Lymphocytes # (1.0-4.8) k/uL Monocytes # (0-1.0) k/uL Eosinophils # (0-0.7) k/uL Basophils # (0-0.2) k/uL Macrocytosis Sodium 134 L (137-145) mmol/L Potassium 4.0 (3.5-5.1) mmol/L Chloride 101 (98-107) mmol/L Carbon Dioxide 24 (22-30) mmol/L Anion Gap 9 mmol/L BUN 7 L (9-20) mg/dL Creatinine 0.70 (0.66-1.25) mg/dL Est GFR (MDRD) Af Amer >60 (>60 ml/min/1.73 sqM) Est GFR (MDRD) Non-Af >60 (>60 ml/min/1.73 sqM) Glucose 314 H (74-99) mg/dL POC Glucose (mg/dL) (75-99) mg/dL POC Glu Brush Painter ID Calcium 8.5 (8.4-10.2) mg/dL Total Bilirubin 0.2 (0.2-1.3) mg/dL AST 16 L (17-59) U/L ALT 32 (21-72) U/L Alkaline Phosphatase 79 (38-126) U/L Total Protein 5.7 L (6.3-8.2) g/dL Albumin 3.1 L (3.5-5.0) g/dL Valproic Acid 54.0 ug/mL Serum Alcohol <10 mg/dL Acetone, Qual (Negative) - EKG Data -: EKG Interpreted by [place] EKG shows normal: sinus rhythm, axis (Normal), intervals (Normal), QRS complexes (Normal), ST-T waves (Normal) Rate: normal (Rate 79 bpm) Interpretation: normal EKG Disposition Clinical Impression: Paresthesia, Hyperglycemia Narrative: Possible TIA versus possible seizure Disposition: HOME SELF-CARE Condition: Poor Referrals: Ladarius Celis MD [Primary Care Provider] - 1-2 days
[2017-03-16 00:13] LABS: ALT 32 U/L (21-72); AST 16 U/L (17-59); Alcohol <10 mg/dL; Alkaline Phosphatase 79 U/L (38-126); Anion Gap 9 mmol/L; Blood Urea Nitrogen 7 mg/dL (9-20); Calcium 8.5 mg/dL (8.4-10.2); Carbon Dioxide 24 mmol/L (22-30); Chloride 101 mmol/L (98-107); Glucose 314 mg/dL (74-99); Non-African American GFR(MDRD) >60 (>60 ml/min/1.73 sqM); Sodium 134 mmol/L (137-145); Total Bilirubin 0.2 mg/dL (0.2-1.3); Total Protein 5.7 g/dL (6.3-8.2)
[2017-03-16] MEDS ORDERED: LORazepam 2 MG/ML INJ IV STA (00:35)
--- NOTE | 2017-03-16 01:51 | CT ---
EXAM: CT Head Without Intravenous Contrast CLINICAL HISTORY: Paresthesia. Altered mental status. History of stroke. TECHNIQUE: Axial computed tomography images of the head/brain without intravenous contrast. Coronal and sagittal reformations provided. CTDI is 57.40 mGy and DLP is 1086.20 mGy-cm. This CT exam was performed using one or more of the following dose reduction techniques: automated exposure control, adjustment of the mA and/or kV according to patient size, and/or use of iterative reconstruction technique. COMPARISON: CT dated 12/03/2016. FINDINGS: Brain: No evidence of acute intracranial hemorrhage. No evidence of acute territorial infarct. Goode-white matter differentiation is preserved. No mass effect or midline shift. Stable atrophy. Ventricles: Stable ventricular size. Bones/joints: Unremarkable. No acute fracture. Soft tissues: Unremarkable. Vasculature: Intracranial atherosclerotic vascular disease. Sinuses: Unremarkable as visualized. No acute sinusitis. Mastoid air cells: Unremarkable as visualized. No mastoid effusion. IMPRESSION: 1. Stable CT head compared to 12/03/2016. No evidence of acute intracranial abnormality. 2. Stable atrophy.
[2017-03-16] MEDS ORDERED: ONDANSETRON 4 MG/2 ML VIAL IVP PRN (04:22)
[2017-03-16] MEDS ORDERED: NALOXONE 0.4 MG/ML 1 ML VIAL IV PRN (04:22)
[2017-03-16] MEDS ORDERED: HYDROcodone/APAP 5-325MG 1 EACH TAB PO PRN (04:22)
[2017-03-16] MEDS ORDERED: NITROGLYCERIN SL TABS 0.4 MG TAB SUBLINGUAL PRN (04:28)
[2017-03-16] MEDS ORDERED: ONDANSETRON 4 MG TAB PO PRN (04:28)
[2017-03-16] MEDS ORDERED: INSULIN REGULAR 100 UNIT/ML VIAL SQ STA (04:36)
[2017-03-16 04:56] LABS: Glucose,Whole Blood 255 mg/dL (75-99)
[2017-03-16] MEDS: SODIUM CHLORIDE 0.9% 1,000 ML IV SCH (06:36)
[2017-03-16] MEDS: LEVOTHYROXINE 50 MCG TAB PO SCH (06:40)
[2017-03-16] MEDS ORDERED: INSULIN LISPRO (humaLOG) 300 UNIT/3 ML VIAL SQ SCH (07:30)
[2017-03-16] MEDS: IPRATROPIUM-ALBUTEROL 3 ML NEB INHALATION SCH ×4 (07:49→20:37)
[2017-03-16] MEDS: SYMBICORT 80-4.5 MCG INHALER INHALATION SCH ×2 (07:50→20:37)
[2017-03-16] MEDS ORDERED: BUDESONIDE 0.5 MG/2 ML NEBU INHALATION SCH (08:00)
[2017-03-16] MEDS ORDERED: ALBUTEROL INHALER 60 PUFF/8 GM INHALER INHALATION SCH (08:00)
[2017-03-16] MEDS: PANTOPRAZOLE 40 MG TABLET PO SCH ×2 (08:11→16:14)
[2017-03-16] MEDS: ASPIRIN 325 MG TAB PO SCH (08:12)
[2017-03-16] MEDS: DOXAZOSIN 1 MG TAB PO SCH (08:13)
[2017-03-16] MEDS: FAMOTIDINE 20 MG TAB PO SCH ×2 (08:13→21:54)
[2017-03-16] MEDS: FENOFIBRATE 160 MG TAB PO SCH (08:14)
[2017-03-16] MEDS: levETIRAcetam 500 MG TAB PO SCH ×3 (08:15→21:54)
[2017-03-16] MEDS: METHOCARBAMOL 500 MG TAB PO SCH ×3 (08:15→21:57)
[2017-03-16] MEDS: LOSARTAN 50 MG TAB PO SCH (08:15)
[2017-03-16] MEDS: METOCLOPRAMIDE 5 MG TAB PO SCH ×3 (08:19→21:56)
[2017-03-16] MEDS: POTASSIUM CHLORIDE ER 20 MEQ TAB.ER PO SCH ×2 (08:19→21:55)
[2017-03-16] MEDS: predniSONE 5 MG TAB PO SCH (08:20)
[2017-03-16] MEDS: THEOPHYLLINE 24 HOUR 300 MG CAP.ER.24H PO SCH (08:21)
[2017-03-16 08:42] LABS: Glucose,Whole Blood 178 mg/dL (75-99)
[2017-03-16] MEDS ORDERED: INSULIN ASPART 12 UNIT SQ PRN (08:42)
[2017-03-16] MEDS ORDERED: INSULIN DETEMIR 100 UNIT/ML 10 ML VIAL SQ SCH (09:00)
[2017-03-16] MEDS ORDERED: DIVALPROEX ER 250 MG TAB.ER.24H PO SCH (09:00)
[2017-03-16] MEDS: ACETAMINOPHEN TAB 325 MG TAB PO PRN ×2 (09:46→21:53)
[2017-03-16] MEDS ORDERED: INSPUCOR MISCELLANE PRN (10:00)
[2017-03-16] MEDS ORDERED: INSULIN PUMP BASAL RATES 1 EACH MISC MISCELLANE PRN (10:00)
[2017-03-16] MEDS ORDERED: INSULIN PUMP TARGET GLUCOSE 1 EACH MISC MISCELLANE PRN (10:00)
[2017-03-16] MEDS ORDERED: INSULIN LISPRO (humaLOG) 300 UNIT/3 ML VIAL SQ PRN (10:00)
[2017-03-16] MEDS ORDERED: INSULIN PUMP ACTIVE INSULIN 1 EACH MISC MISCELLANE PRN (10:00)
[2017-03-16 10:09] VITALS: RESP 18
[2017-03-16 10:57] LABS: Hemoglobin A1C 8.2 % (4.2-6.1)
[2017-03-16 12:21] LABS: Glucose,Whole Blood 203 mg/dL (75-99)
[2017-03-16] MEDS: INSULIN PUMP MEAL BOLUS 1 UNIT MISC MISCELLANE SCH ×3 (12:44→22:00)
[2017-03-16 16:38] LABS: Glucose,Whole Blood 197 mg/dL (75-99)
--- NOTE | 2017-03-16 16:39 | XR ---
EXAMINATION TYPE: XR chest 1V portable DATE OF EXAM: 03/16/2017 COMPARISON: 11/28/2016 HISTORY: Cough TECHNIQUE: Single frontal view of the chest is obtained. FINDINGS: There is slight blunting of right costophrenic angle. There are old right-sided rib fractu res. There is no heart failure. Heart size is normal. There are chest leads. IMPRESSION: Old right rib fractures with pleural diaphragmatic scarring. No change compared to old e xam. No pulmonary consolidation.
--- NOTE | 2017-03-16 18:38 | ECHOF ---
Referral Reason:TIA MEASUREMENTS -------- HEIGHT: 152.4 cm WEIGHT: 106.6 kg BP: 142/63 IVSd: 1.4 cm (0.6 - 1.1) LVIDd: 4.5 cm (3.9 - 5.3) LVPWd: 1.2 cm (0.6 - 1.1) IVSs: 1.9 cm LVIDs: 3.9 cm LVPWs: 1.3 cm Ao Diam: 3.3 cm (2.0 - 3.7) AV Cusp: 2.3 cm (1.5 - 2.6) LA Diam: 4.3 cm (2.7 - 3.8) MV EXCURSION: 14.425 mm (> 18.000) MV EF SLOPE: 52 mm/s (70 - 150) EPSS: 0.2 cm MV E Erick: 0.52 m/s MV DecT: 166 ms MV A Erick: 0.60 m/s MV E/A Ratio: 0.86 FINDINGS -------- Sinus rhythm. Morbid Obesity The left ventricular size is normal. Left ventricular wall thickness is normal. Overall left ventricular systolic function is normal with, an EF between 55 - 60 %. The right ventricle is normal in size. The left atrial size is normal. The right atrial size is normal. The aortic valve was not well visualized. Mild mitral regurgitation is present. Mild tricuspid regurgitation present. Right ventricular systolic pressure is normal at < 35 mmHg. There is no evidence of pulmonary hypertension. The pulmonic valve was not well visualized. The aortic root size is normal. Echo free space represents a pericardial fat pad. CONCLUSIONS -------- 1. Morbid Obesity 2. The aortic root size is normal. 3. Echo free space represents a pericardial fat pad. 4. The left ventricular size is normal. 5. Left ventricular wall thickness is normal. 6. Overall left ventricular systolic function is normal with, an EF between 55 - 60 %. 7. The aortic valve was not well visualized. 8. Mild tricuspid regurgitation present. 9. Right ventricular systolic pressure is normal at < 35 mmHg. 10. There is no evidence of pulmonary hypertension. 11. The pulmonic valve was not well visualized. CRICKET COACH: Lovely Hidalgo RDCS
--- NOTE | 2017-03-16 18:58 | HP ---
HISTORY AND PHYSICAL DATE OF ADMISSION: 03/16/2017 PRESENT COMPLAINT: Seizure. HISTORY OF PRESENTING COMPLAINT: This is a 52-year-old patient of Dr. Celis whose chronic stable medical conditions include COPD, CHF, diabetes, peripheral neuropathy, GERD, hypertension, hyperlipidemia, osteoarthritis, hypothyroid. The patient has got left-sided weakness from a prior stroke in 2001. The patient had seizures back in August and November of this year and was admitted to [facility]. Last night the patient had seizures that apparently lasted for quite some time. He was brought in. This time the episode manifested in just feeling funny, face being numb, unable to speak. Patient does not remember the name of his neurologist. His , who is here, has currently gone down to eat something. Further workup in in place. REVIEW OF SYSTEMS: CONSTITUTIONAL: Tired. HEENT: None. RESPIRATORY: None. CARDIOVASCULAR: None. GASTROINTESTINAL: Heartburn. GENITOURINARY: None. MUSCULOSKELETAL: None. DERMATOLOGICAL: None. HEMATOLOGICAL: None. LYMPHATICS: None. PSYCHIATRY: None. NEUROLOGICAL: As above. PAST MEDICAL HISTORY: 1. COPD. 2. CHF from diastolic dysfunction. 3. Diabetes with peripheral neuropathy. 4. GERD. 5. Hypertension. 6. Hyperlipidemia. 7. Osteoarthritis. 8. Hypothyroid. 9. Left-sided weakness. 10.Seizures. PAST SURGICAL HISTORY: 1. Appendectomy. 2. Cholecystectomy. 3. Right elbow, knee and wrist surgery. SOCIAL HISTORY: Does not smoke or drink alcohol. FAMILY HISTORY: Coronary artery disease, history of diabetes, hyperlipidemia, myocardial infarction, seizure disorder. HOME MEDICATIONS: 1. Prednisone 5 mg a day. 2. Keppra XR 500 mg p.o. t.i.d. 3. Pedro Luis-Dur 300 mg p.o. b.i.d. 4. Zantac 150 mg p.o. b.i.d. 5. Potassium 20 mEq p.o. b.i.d. 6. Omeprazole 40 mg p.o. b.i.d. 7. Oiastst Acudial as directed. 8. Nitrostat 0.4 sublingually q.5 p.r.n. 9. Singulair 10 mg p.o. at bedtime. 10.Reglan 5 mg p.o. t.i.d. 11.Robaxin 500 mg p.o. t.i.d. 12.Cozaar 50 mg p.o. daily. 13.Synthroid 50 mcg p.o. daily. 14.DuoNeb q.i.d. 15.Levemir 25 units subcutaneously b.i.d. 16.NovoLog per pump. 17.NovoLog 20 units subcutaneously before meals t.i.d. 18.Iron 325 p.o. at bedtime. 19.Lofibra 160 mg p.o. daily. 20.Vitamin D2 50,000 units p.o. on . 21.Cardura 1 mg p.o. daily. 22.Depakote ER 250 mg p.o. b.i.d. 23.Symbicort 80/4.5 two puffs b.i.d. 24.Pulmicort 0.5 mg nebulizer b.i.d. 25.Lipitor 40 mg at bedtime. 26.Aspirin 325 mg p.o. daily. 27.Ventolin HFA 2 puffs q.i.d. ALLERGIES: 1. TEGRETOL. 2. ADVAIR. 3. APIDRA. 4. HUMALOG. 5. LACTULOSE. 6. PORK DERIVATIVE. 7. COMPAZINE. 8. BACTRIM. PHYSICAL EXAMINATION: VITAL SIGNS ON PRESENTATION: Temperature 99.7, pulse 79, respiration 18, blood pressure 180/81, pulse ox 97% on room air. Repeat blood pressure 158/68. GENERAL APPEARANCE: Well built; BMI 33.7. Lying in bed., Awake. Comfortable. EYES: Pupils equal. Conjunctivae normal. HEENT: Oral cavity normal. NECK: JVD not raised. Mass not palpable. RESPIRATORY: Effort normal. Lungs are clear. CARDIOVASCULAR: First and second sounds normal. No edema. ABDOMEN: Soft, nontender. Liver and spleen not palpable. LYMPHATICS: No lymph node palpable in neck or axillae. PSYCHIATRY: Alert and oriented x3. Mood and affect normal. NEUROLOGICAL: Pupils equal. Cranial nerves grossly intact. Power in the left arm is 4/5. Power in the left leg is 0/5 with decreased sensation and left foot drop. INVESTIGATIONS: White count 6.1, hemoglobin 12.5, potassium 4, BUN 7, creatinine 0.70. Accu-Cheks are noted. ASSESSMENT: 1. Recurrent seizure in a patient with known grand mal seizure who is already on Keppra. 2. Chronic obstructive pulmonary disease. 3. Chronic congestive heart failure from diastolic dysfunction. Ejection fraction not known. 4. Diabetes mellitus, type 2, with peripheral neuropathy. 5. Gastroesophageal reflux disease. 6. Essential hypertension. 7. Hyperlipidemia. 8. Osteoarthritis. 9. Hypothyroidism. 10.Left hemiplegia, chronic, from prior stroke. PLAN: Neuro checks are in place. Home medications are resumed. Neurology Dr. Mulligan was consulted. Care was discussed with the patient. No family is at the bedside. MMODL / IJN: [id number] /
--- NOTE | 2017-03-16 20:04 | EEG ---
ELECTROENCEPHALOGRAM REPORT DATE OF SERVICE: 03/16/2017 REASON FOR TESTING: Seizure. CURRENT ANTIEPILEPTIC MEDICATIONS: Depakote and Keppra. PROCEDURE: This EEG was performed using a 21 channel digital electroencephalograph, following international 10-20 system. DESCRIPTION OF THE RECORDING: From the beginning of the tracing, and with patient's eyes closed, the background rhythm was mostly consisting of 10 hertz alpha frequency in the posterior occipital leads. No obvious asymmetry is seen. Photic stimulation was performed with a good driving response seen. No pathological waves were elicited. Occasional lead artifacts and movement artifacts are seen. Hyperventilation was not performed. Later in the tracing, the patient does reach stage II of sleep and occasional sleep spindles are seen. No epileptiform discharges were seen. His EKG lead showed a regular rate and rhythm. INTERPRETATION: This asleep and awake EEG can be considered within normal limits. There is no asymmetry seen. No epileptiform discharges were noticed. The absence of epileptiform discharges does not rule out the diagnosis of epilepsy, therefore clinical correlation is recommended. MMGILLESL / IJN: [id number] /
[2017-03-16 20:54] LABS: Glucose,Whole Blood 198 mg/dL (75-99)
[2017-03-16] MEDS ORDERED: ATORVASTATIN 40 MG TAB PO SCH (21:00)
[2017-03-16] MEDS ORDERED: MONTELUKAST 10 MG TAB PO SCH (21:00)
[2017-03-16] MEDS ORDERED: FERROUS SULFATE 325 MG TAB PO SCH (21:00)
--- NOTE | 2017-03-16 22:15 | US ---
EXAMINATION TYPE: US carotid duplex BILAT DATE OF EXAM: 03/16/2017 COMPARISON: CLINICAL HISTORY: TIA. Seizure, HTN EXAM MEASUREMENTS: RIGHT: Peak Systolic Velocity (PSV) cm/sec ----- Right CCA: 69.1 ----- Right ICA: 98.4 ----- Right ECA: 137.1 ICA/CCA ratio: 1.4 RIGHT: End Diastole cm/sec ----- Right CCA: 9.8 ----- Right ICA: 9.5 ----- Right ECA: 7.9 LEFT: Peak Systolic Velocity (PSV) cm/sec ----- Left CCA: 78.4 ----- Left ICA: 82.7 ----- Left ECA: 93.1 ICA/CCA ratio: 1.1 LEFT: End Diastole cm/sec ----- Left CCA: 9.8 ----- Left ICA: 10.2 ----- Left ECA: 0.0 VERTEBRALS (direction of flow): Right Vertebral: Antegrade Left Vertebral: Antegrade Rhythm: Normal Elevated right ECA. No significant stenosis. No wall thickening. Plaque seen in bilateral bulbs. IMPRESSION: No evidence for hemodynamically significant stenosis. Criteria for Assigning % of Stenosis / Diameter reduction (Estimation based on the indirect measurements of the internal carotid artery velocities (ICA PSV). 1. Normal (no stenosis)=ICA PSV < 125 cm/s: ratio < 2.0: ICA EDV<40 cm/s. 2. Less than 50% stenosis=ICA PSV < 125 cm/s: ratio < 2.0: ICA EDV<40 cm/s. 3. 50 to 69% stenosis=ICA PSV of 125 to 230 cm/s: ration 2.0 ? 4.0: ICA EDV 40-100 cm/s. 4. Greater than 70% stenosis to near occlusion= ICA PSV > 230 cm/s: ratio > 4.0: ICA EDV > 100 cm/s. 5. Near occlusion= ICA PSV velocities may be low or undetectable: variable ratio and ICA EDV. 6. Total occlusion=unable to detect flow.
[2017-03-17 00:19] LABS: Glucose,Whole Blood 144 mg/dL (75-99)
[2017-03-17 05:45] VITALS: TEMP 97.3
[2017-03-17] MEDS: SODIUM CHLORIDE 0.9% 1,000 ML IV SCH (05:52)
[2017-03-17 06:29] LABS: Glucose,Whole Blood 206 mg/dL (75-99)
[2017-03-17] MEDS: PANTOPRAZOLE 40 MG TABLET PO SCH (07:09)
[2017-03-17] MEDS: LEVOTHYROXINE 50 MCG TAB PO SCH (07:10)
--- NOTE | 2017-03-17 07:31 | CONS ---
CONSULTATION DATE OF CONSULTATION: 03/16/2017 CHIEF COMPLAINT: Seizures. HISTORY OF PRESENT ILLNESS: Mr. Diaz is a pleasant 52-year-old, male, who is being evaluated by the Neurology Service per the request of Dr. King for seizures. The patient states that he has a history of generalized tonic-clonic seizures for over 20 years, but of seizures had been well-controlled until this past year. He does take Keppra and Depakote at home. His usual seizures are described as generalized tonic clonic but yesterday he had an episode that is more consistent with a focal seizure. . HOME MEDICATIONS: It seems that he is on Depakote ER 1000 mg daily and Keppra 750 mg twice daily. His Depakote level was borderline normal at 54. I did review his CT scan of the brain which showed no acute intracranial abnormalities. Generalized atrophy was seen. His comprehensive metabolic profile showed mild hyponatremia at 134 and hyperglycemia at 314. His protein and albumin were slightly reduced at 5.7 and 3.1, respectively. I did review his EEG which was normal. At the time of my evaluation, the patient is lying in his bed and appears to be in no acute distress. The patient also has history of ischemic stroke with residual right hemiparesis. He states that he does take aspirin daily at home. PAST MEDICAL HISTORY: Seizure disorder, history of stroke, asthma, heart failure, chronic obstructive pulmonary disease, diabetes, gastroesophageal reflux disease, hypertension, dyslipidemia, history of myocardial infarction, arthritis, hypothyroidism, chronic pain syndrome, history of insulin pump placement, hernia repair, appendectomy, and cholecystectomy. He also has a history of carpal tunnel release surgeries. SOCIAL HISTORY: The patient denies any tobacco or alcohol or drug use. FAMILY HISTORY: Positive for heart disease and strokes. Home medications reviewed in the chart. ALLERGIES: TEGRETOL, ADVAIR, INSULIN, LACTOSE, COMPAZINE, BACTRIM. REVIEW OF SYSTEMS: CONSTITUTIONAL: Positive for fatigue. EYES: Negative. ENT: Positive for chronic hearing loss. CARDIOVASCULAR: Negative. RESPIRATORY: Positive for occasional shortness of breath. NEUROLOGICAL: As mentioned above. GASTROINTESTINAL: Positive for occasional heartburn. GENITOURINARY: Negative. PSYCHIATRIC: Negative. ENDOCRINE: Positive for diabetes and hypothyroidism. MUSCULOSKELETAL: Positive for occasional joint pain and spine pain. DERMATOLOGICAL: Negative. PHYSICAL EXAM: Vital signs show a temperature of 97.4, pulse 67, respiration 18, blood pressure 152/75. GENERAL APPEARANCE: The patient is a mildly obese male, who appears to be in no acute distress. HEENT: Normocephalic atraumatic, no facial asymmetry is seen, hearing is reduced. Neck is supple with no masses felt. CARDIOVASCULAR: Regular rate and rhythm. ABDOMEN: Obese, nontender, nondistended. Extremities showed trace edema with no clubbing seen. Neurological exam the patient is alert and oriented x3. Speech and language are normal. Strength is 1/5 in the left lower extremity, 4/5 in the left upper extremity, and 5/5 on the right side. Sensory exam showed diminished light touch sensation on the left upper and lower extremity compared to the right. Pronator drift is present on the left. No facial asymmetry is seen on cranial nerve testing. IMPRESSION: 1. Seizure disorder. 2. History of ischemic stroke. 3. Left hemiparesis secondary to previous ischemic stroke. 4. Uncontrolled diabetes. RECOMMENDATION: The patient does have a long-standing history of seizures that has been well-controlled until this past year. His most recent seizure is more consistent with a focal seizure as he did not lose consciousness. His Depakote level although was within the therapeutic window, it was borderline low at 54. I will increase his Depakote ER from 1000 mg daily to 1250 mg daily. As for his Keppra dose, his hospital admission states that he is on Keppra 500 mg 3 times daily. According to the patient, he takes 3 tablets of 250 mg twice a day for a total dose of 750 mg b.i.d. I will increase this dose to 1000 mg b.i.d. I did review his EEG and CT scan of the brain both of which showed no significant abnormalities. Continue neuro checks and seizure precautions. I will repeat his Depakote level in the morning. Continue the rest of your current workup and management. I will continue to follow with you. Further recommendations to follow. Thank you for allowing me to participate in the care of your patient. If you have any questions, please feel free to contact me. LAWSON / BENNETT: [id number] /
[2017-03-17] MEDS: INSULIN PUMP MEAL BOLUS 1 UNIT MISC MISCELLANE SCH ×2 (07:52→12:33)
[2017-03-17] MEDS: ASPIRIN 325 MG TAB PO SCH (07:52)
[2017-03-17] MEDS: DOXAZOSIN 1 MG TAB PO SCH (07:53)
[2017-03-17] MEDS: FAMOTIDINE 20 MG TAB PO SCH (07:53)
[2017-03-17] MEDS: FENOFIBRATE 160 MG TAB PO SCH (07:54)
[2017-03-17] MEDS: levETIRAcetam 500 MG TAB PO SCH (07:54)
[2017-03-17] MEDS: METOCLOPRAMIDE 5 MG TAB PO SCH (07:55)
[2017-03-17] MEDS: POTASSIUM CHLORIDE ER 20 MEQ TAB.ER PO SCH (07:55)
[2017-03-17] MEDS: METHOCARBAMOL 500 MG TAB PO SCH (07:56)
[2017-03-17] MEDS: THEOPHYLLINE 24 HOUR 300 MG CAP.ER.24H PO SCH (07:56)
[2017-03-17] MEDS: predniSONE 5 MG TAB PO SCH (07:56)
[2017-03-17] MEDS: LOSARTAN 50 MG TAB PO SCH (07:56)
[2017-03-17] MEDS: IPRATROPIUM-ALBUTEROL 3 ML NEB INHALATION SCH (08:54)
[2017-03-17] MEDS: SYMBICORT 80-4.5 MCG INHALER INHALATION SCH (08:54)
[2017-03-17] MEDS ORDERED: DIVALPROEX ER 500 MG TAB.ER.24H PO SCH (09:00)
[2017-03-17] MEDS ORDERED: DIVALPROEX ER 250 MG TAB.ER.24H PO SCH (09:00)
[2017-03-17 09:08] VITALS: PULSE 72
[2017-03-17 10:29] VITALS: BP 144/68
[2017-03-17 11:33] LABS: Glucose,Whole Blood 291 mg/dL (75-99)
--- NOTE | 2017-03-17 20:11 | P.DS ---
Providers Date of admission: 03/16/17 04:22 Expected date of discharge: 03/17/17 Attending physician: Junito King Consults: 03/16/17 04:24 Consult Physician Routine Consulting Provider: Brody Mulligan Consult Reason/Comments: Possible seizure vs TIA Do you want consulting provider notified?: Yes Primary care physician: Ladarius Celis Hospital Course: FINAL DIAGNOSES: - recurrent seizure in a patient with known grand mal seizures who is already on Keppra. -Chronic obstructive pulmonary disease. -Chronic congestive heart failure from diastolic dysfunction, ejection fraction not known. -Diabetes mellitus type 2 with peripheral neuropathy. -Gastroesophageal reflux disease. -Essential hypertension. -Hyperlipidemia. -Osteoarthritis of multiple joints. -Hypothyroidism. -Left hemiplegia, chronic from prior stroke. HOSPTIAL COURSE: 52-year-old male with known history of seizures, had a sustained episode of seizure activity lasted for quite a while, the episode manifested in a funny feeling face being numb unable to speak. Admitted for the same. Home medications ordered, Neurology consulted, computed tomography scan EEG ordered as were drug levels of Keppra and Depakote. Imaging and EEG were essentially negative however Depakote was within the therapeutic window although on the low end of normal this was increased and Keppra was subtherapeutic this also was increased. Patient did not have any further sustained or transient seizure activity, patient tolerating his diet, anxious to have patient back home. Cleared by consultants and is stable for discharge. PHYSICAL EXAM: CARDIOVASCULAR: First second sounds noted no edema RESPIRATORY: Respiratory effort normal, lungs clear to auscultation NEUROLOGIC: Pupils equal, creatinine nerves grossly intact, power in the left arm is 4/5, power in the left leg is 0/5 with decreased sensation and left foot drop. PSYCHIATRY: Alert and oriented 3 mood and affect are normal. Patient was seen and examined by nurse practitioner Negrita Sorensen in all elements of the case discussed with attending Dr. King DISPOSITION: Home to the care of his Patient Condition at Discharge: Poor Plan - Discharge Summary New Discharge Prescriptions: New Ondansetron [Zofran] 4 mg PO Q8HR PRN tab PRN Reason: Nausea And Vomiting Potassium Chloride ER [K-Dur 20] 20 meq PO BID tab Divalproex ER [Depakote ER] 1,000 mg PO DAILY #30 tab levETIRAcetam [Keppra] 1,000 mg PO Q12HR #60 tab Continue Albuterol Sulfate [Ventolin HFA] 2 puff INHALATION RT-QID Budesonide [Pulmicort] 0.5 mg INHALATION RT-BID Budesonide/Formoterol Fumarate [Symbicort 80-4.5 Mcg Inhaler] 2 puff INHALATION RT-BID Doxazosin [Cardura] 1 mg PO DAILY Ferrous Sulfate [Feosol] 325 mg PO HS Losartan Potassium [Cozaar] 50 mg PO DAILY Methocarbamol [Robaxin] 500 mg PO TID Montelukast [Singulair] 10 mg PO HS Nitroglycerin Sl Tabs [Nitrostat] 0.4 mg SUBLINGUAL Q5M PRN PRN Reason: Chest Pain Levothyroxine Sodium [Synthroid] 50 mcg PO DAILY Theophylline 12 Hour [Pedro Luis-Dur] 300 mg PO BID Metoclopramide [Reglan] 5 mg PO TID Atorvastatin [Lipitor] 40 mg PO HS predniSONE 5 mg PO DAILY Fenofibrate [Lofibra] 160 mg PO DAILY Insulin Aspart (For Pump) [NovoLOG (For Pump)] See Protocol SQ-PUMP CONTINUOUS Omeprazole 40 mg PO BID Ipratropium-Albuterol Nebulize [Duoneb 0.5 mg-3 mg/3 ml Soln] 3 ml INHALATION RT-QID #120 ampul.neb Ergocalciferol (Vitamin D2) [Vitamin D2] 50,000 unit PO TH Insulin Detemir [Levemir] 25 unit SQ BID Potassium Chloride Oral Liquid 20 meq PO BID Oiastst Acudial 1 injection SQ DIRECTED Insulin Aspart [NovoLOG] 12 unit SQ AC-TID PRN PRN Reason: Blood Sugar - High Insulin Aspart [NovoLOG] See Protocol SQ AC-TID PRN PRN Reason: Blood Sugar - High Changed Divalproex ER [Depakote ER] 250 mg PO DAILY #1 Discontinued levETIRAcetam [Keppra Xr] 500 mg PO TID Aspirin 325 mg PO DAILY No Action Ranitidine HCl [Zantac] 150 mg PO BID Discharge Medication List Albuterol Sulfate [Ventolin HFA] 2 puff INHALATION RT-QID 03/03/14 [History] Budesonide [Pulmicort] 0.5 mg INHALATION RT-BID 03/03/14 [History] Budesonide/Formoterol Fumarate [Symbicort 80-4.5 Mcg Inhaler] 2 puff INHALATION RT-BID 03/03/14 [History] Doxazosin [Cardura] 1 mg PO DAILY 03/03/14 [History] Ferrous Sulfate [Feosol] 325 mg PO HS 03/03/14 [History] Losartan Potassium [Cozaar] 50 mg PO DAILY 03/03/14 [History] Methocarbamol [Robaxin] 500 mg PO TID 03/03/14 [History] Montelukast [Singulair] 10 mg PO HS 03/03/14 [History] Nitroglycerin Sl Tabs [Nitrostat] 0.4 mg SUBLINGUAL Q5M PRN 03/03/14 [History] Ranitidine HCl [Zantac] 150 mg PO BID 03/03/14 [History] Levothyroxine Sodium [Synthroid] 50 mcg PO DAILY 12/19/14 [History] Theophylline 12 Hour [Pedro Luis-Dur] 300 mg PO BID 12/19/14 [History] Atorvastatin [Lipitor] 40 mg PO HS 12/04/15 [History] Metoclopramide [Reglan] 5 mg PO TID 12/04/15 [History] predniSONE 5 mg PO DAILY 12/04/15 [History] Fenofibrate [Lofibra] 160 mg PO DAILY 05/20/16 [History] Insulin Aspart (For Pump) [NovoLOG (For Pump)] See Protocol SQ-PUMP CONTINUOUS 05/20/16 [History] Omeprazole 40 mg PO BID 05/20/16 [History] Ipratropium-Albuterol Nebulize [Duoneb 0.5 mg-3 mg/3 ml Soln] 3 ml INHALATION RT -QID #120 ampul.neb 06/08/16 [Rx] Ergocalciferol (Vitamin D2) [Vitamin D2] 50,000 unit PO TH 11/28/16 [History] Insulin Aspart [NovoLOG] 12 unit SQ AC-TID PRN 03/16/17 [History] Insulin Aspart [NovoLOG] See Protocol SQ AC-TID PRN 03/16/17 [History] Insulin Detemir [Levemir] 25 unit SQ BID 03/16/17 [History] Oiastst Acudial 1 injection SQ DIRECTED 03/16/17 [History] Potassium Chloride Oral Liquid 20 meq PO BID 03/16/17 [History] Divalproex ER [Depakote ER] 1,000 mg PO DAILY #30 tab 03/17/17 [Rx] Divalproex ER [Depakote ER] 250 mg PO DAILY #1 03/17/17 [Rx] Ondansetron [Zofran] 4 mg PO Q8HR PRN tab 03/17/17 [Rx] Potassium Chloride ER [K-Dur 20] 20 meq PO BID tab 03/17/17 [Rx] levETIRAcetam [Keppra] 1,000 mg PO Q12HR #60 tab 03/17/17 [Rx] Follow up Appointment(s)/Referral(s): Ladarius Celis MD [Primary Care Provider] - 03/19/17 1:40 pm Brody Mulligan MD [STAFF PHYSICIAN] - 2 Weeks (office is closed, call and make appointment) Patient Instructions/Handouts: Recurrent Seizures in Adults (DC) Discharge Disposition: HOME SELF-CARE
[2017-03-19] MEDS ORDERED: ERGOCALCIFEROL 50,000 UNIT CAP PO SCH (09:00)
--- NOTE | 2017-03-19 10:55 | DS ---
DISCHARGE SUMMARY DATE OF SERVICE: 03/18/2017. ATTENDING NOTE: This patient was seen and examined by me. I discussed with my nurse practitioner, Ms. Estevezsantoskell. Patient admitted with seizures, seen by Dr. Mluligan from Neurology. The patient's EEG came back unremarkable. Medications were adjusted by Dr. Mulligan. The day of discharge, I talked to the patient's . Questions were answered. Exam showed the patient is chronically weak on the left side, but able to answer questions. DISCHARGE MEDICATIONS: 1. Ventolin HFA 2 puffs q.i.d. 2. Pulmicort 0.5 nebulizer b.i.d. 3. Symbicort 80/4.5, 2 puffs b.i.d. 4. Cardura 1 mg p.o. daily. 5. Iron 325 p.o. q.h.s. 6. Cozaar 50 mg p.o. daily. 7. Robaxin 5 mg p.o. t.i.d. 8. Singulair 10 mg q.h.s. 9. Nitrostat 0.4 sublingual q.5 p.r.n. 10.Zantac 150 mg p.o. b.i.d. 11.Synthroid 50 mcg p.o. daily. 12.Pedro Luis-Dur 300 mg p.o. b.i.d. 13.Lipitor 40 mg at bedtime. 14.Reglan 5 mg p.o. t.i.d. 15.Prednisone 5 mg a day. 16. 60 mg p.o. daily. 17.Insulin pump. 18.Omeprazole 40 mg b.i.d. 19.DuoNeb q.i.d. 20.Vitamin D2 50,000 units on . 21.NovoLog 12 units a.c. t.i.d. with scale. 22.Levemir 25 units subcu b.i.d. 23. injection as directed. 24.Potassium 20 mEq b.i.d. 25.Depakote ER 1000 mg p.o. daily. Add 250 mg p.o. daily extended release. 26.Zofran 4 mg q.8 p.r.n. 27.Potassium as before. 28.Keppra 1000 mg p.o. q.12. 29.Both Depakote and Keppra are new dose as per Dr. Mulligan. Follow up with Dr. Celis on 03/19/2017. Follow up with Dr. Mulligan in 2 weeks. MMODL / IJN: [id number] /
== END 2017-03-17 13:57 | disposition home or self-care (01) ==
LOC: EC 23:11 → 6SEL 03-16 04:22
PROVIDERS: ADMIT Hospitalist; ATTEND Hospitalist
DX: G40.409 Other generalized epilepsy and epileptic syndromes, not intractable, without status epilepticus (principal); J44.9 Chronic obstructive pulmonary disease, unspecified; I11.0 Hypertensive heart disease with heart failure; I50.32 Chronic diastolic (congestive) heart failure; E11.65 Type 2 diabetes mellitus with hyperglycemia; E11.42 Type 2 diabetes mellitus with diabetic polyneuropathy; K21.9 Gastro-esophageal reflux disease without esophagitis; E78.5 Hyperlipidemia, unspecified; M15.9 Polyosteoarthritis, unspecified; E03.9 Hypothyroidism, unspecified; I25.2 Old myocardial infarction; I69.354 Hemiplegia and hemiparesis following cerebral infarction affecting left non-dominant side; R41.3 Other amnesia; R20.9 Unspecified disturbances of skin sensation; R20.0 Anesthesia of skin; E87.1 Hypo-osmolality and hyponatremia; G89.4 Chronic pain syndrome; Z79.51 Long term (current) use of inhaled steroids; Z79.899 Other long term (current) drug therapy; Z79.52 Long term (current) use of systemic steroids; Z79.4 Long term (current) use of insulin; Z79.82 Long term (current) use of aspirin; Z88.8 Allergy status to other drugs, medicaments and biological substances; Z88.2 Allergy status to sulfonamides; Z91.011 Allergy to milk products; Z86.73 Personal history of transient ischemic attack (TIA), and cerebral infarction without residual deficits; Z87.01 Personal history of pneumonia (recurrent); Z96.41 Presence of insulin pump (external) (internal)
CPT/HCPCS: 36415; 70450; 71010; 80053; 80164; 80165; 80320; 82009; 83036; 85025; 93005; 93306; 93880; 94640; 95819; 96374; 99285

== ENCOUNTER 2017-07-28 17:26 | Emergency (ER) | payer OTHER ==
[2017-07-28 17:34] VITALS: RESP 16; TEMP 99
[2017-07-28] MEDS ORDERED: SODIUM CHLORIDE 0.9% 1,000 ML IV ONE (17:37)
[2017-07-28 18:22] LABS: Appearance,Urine Clear (Clear); Bilirubin,Urine Negative (Negative); Blood,Urine Negative (Negative); Color,Urine Light Yellow; Glucose,Urine (UA) 4+ (Negative); Ketones,Urine Trace (Negative); Leukocyte Esterase,Urine Negative (Negative); Nitrite,Urine Negative (Negative); Protein,Urine Negative (Negative); Urobilinogen,Urine <2.0 mg/dL (<2.0)
[2017-07-28 18:26] LABS: Basophils % (A) 0 %; Eosinophils # (A) 0.2 k/uL (0-0.7); Eosinophils % (A) 1 %; HCT 46.2 % (39.0-53.0); HGB 14.6 gm/dL (13.0-17.5); Hypochromasia Slight; Lymphocytes # (A) 1.1 k/uL (1.0-4.8); Lymphocytes % (A) 9 %; MCH 32.3 pg (25.0-35.0); MCHC 31.7 g/dL (31.0-37.0); MCV 101.8 fL (80.0-100.0); Macrocytosis Slight; Mean Platelet Volume 7.5; Monocytes # (A) 0.5 k/uL (0-1.0); Monocytes % (A) 4 %; Neutrophils # (A) 10.5 k/uL (1.3-7.7); Neutrophils % (A) 85 %; Platelet Count 158 k/uL (150-450); RBC 4.54 m/uL (4.30-5.90); RDW 13.4 % (11.5-15.5); WBC 12.4 k/uL (3.8-10.6)
[2017-07-28 18:33] LABS: ALT 21 U/L (21-72); AST 26 U/L (17-59); Albumin 3.7 g/dL (3.5-5.0); Alkaline Phosphatase 79 U/L (38-126); Anion Gap 18 mmol/L; Blood Urea Nitrogen 9 mg/dL (9-20); Calcium 8.6 mg/dL (8.4-10.2); Carbon Dioxide 20 mmol/L (22-30); Chloride 95 mmol/L (98-107); Glucose 382 mg/dL (74-99); Magnesium 1.9 mg/dL (1.6-2.3); Potassium 5.1 mmol/L (3.5-5.1); Sodium 133 mmol/L (137-145); Total Bilirubin 0.7 mg/dL (0.2-1.3); Total Protein 6.6 g/dL (6.3-8.2)
[2017-07-28 18:38] LABS: Valproic Acid (Depakene) 76.4 ug/mL
--- NOTE | 2017-07-28 18:45 | XR ---
EXAMINATION: XR chest 2V DATE AND TIME: 07/28/2017 6:38 PM ORDERING PROVIDER: Sunil Moreno DO CLINICAL INDICATION: Cough TECHNIQUE: PA and lateral COMPARISON: 03/16/2017 DESCRIPTION: The soft tissues overlying the chest are prominent and limited visualization to 8 promin ent degree. The lungs are clear. The pleural spaces are negative for acute findings. The cardiac silhouette is to p normal in size. The skeletal structures are intact without focal findings. IMPRESSION: NO ACUTE PROCESS.
[2017-07-28 18:54] VITALS: BP 143/77; PULSE 92
--- NOTE | 2017-07-28 19:05 | ED ---
Seizure HPI - General Chief Complaint: Seizure Stated Complaint: seizure Time Seen by Provider: 07/28/17 17:29 Source: patient Mode of arrival: EMS Limitations: no limitations - History of Present Illness Initial Comments: This is a 52-year-old male with a history of seizures on Keppra and Depakote who presents emergency department for a generalized seizure and this was witnessed by the patient's son. Patient states that he does not recall any preceding symptoms. Per the son the seizure lasted approximately 8 minutes. The patient states it's not a typical for him to have longer seizures. The son states that he was postictal afterwards for a short period of time. The patient had a known seizure history and has been seen by Dr. Cantrell in the past. He's been compliant with his medications. He states he has been fighting bronchitis over the last few weeks and is currently on Augmentin and steroids. He denies any fevers or chills. No dysuria or hematuria. No nausea, vomiting, or diarrhea. He denies any drug or alcohol use. He has been admitted in the past for seizures and had an EEG done recently that was negative. He denies any other acute complaints at this time. - Related Data Home Medications Medication Instructions Recorded Confirmed Albuterol Sulfate [Ventolin HFA] 2 puff INHALATION RT-QID 03/03/14 07/28/17 Budesonide [Pulmicort] 0.5 mg INHALATION RT-BID 03/03/14 07/28/17 Budesonide/Formoterol Fumarate 2 puff INHALATION RT-BID 03/03/14 07/28/17 [Symbicort 80-4.5 Mcg Inhaler] Doxazosin [Cardura] 1 mg PO DAILY 03/03/14 07/28/17 Ferrous Sulfate [Feosol] 325 mg PO HS 03/03/14 07/28/17 Losartan Potassium [Cozaar] 50 mg PO DAILY 03/03/14 07/28/17 Methocarbamol [Robaxin] 500 mg PO TID 03/03/14 07/28/17 Montelukast [Singulair] 10 mg PO HS 03/03/14 07/28/17 Ranitidine HCl [Zantac] 150 mg PO BID 03/03/14 07/28/17 Levothyroxine Sodium [Synthroid] 50 mcg PO DAILY 12/19/14 07/28/17 Theophylline 12 Hour [Pedro Luis-Dur] 300 mg PO BID 12/19/14 07/28/17 Atorvastatin [Lipitor] 40 mg PO HS 12/04/15 07/28/17 Metoclopramide [Reglan] 5 mg PO TID 12/04/15 07/28/17 predniSONE See Taper PO DAILY 12/04/15 07/28/17 Fenofibrate [Lofibra] 160 mg PO DAILY 05/20/16 07/28/17 Omeprazole 40 mg PO BID 05/20/16 07/28/17 Ergocalciferol (Vitamin D2) 50,000 unit PO TH 11/28/16 07/28/17 [Vitamin D2] Oiastst Acudial 1 injection SQ DIRECTED 03/16/17 07/28/17 Aspirin 325 mg PO DAILY 07/28/17 07/28/17 Divalproex Sodium [Depakote] 500 mg PO BID 07/28/17 07/28/17 Insulin Aspart (For Pump) [NovoLOG 0.01 unit SQ-PUMP CONTINUOUS 07/28/17 (For Pump)] Sertraline [Zoloft] 25 mg PO DAILY 07/28/17 07/28/17 levETIRAcetam [Keppra] 1,000 mg PO TID 07/28/17 07/28/17 levETIRAcetam [Keppra] 250 mg PO TID 07/28/17 07/28/17 Previous Rx's Medication Instructions Recorded Ipratropium-Albuterol Nebulize 3 ml INHALATION RT-QID #120 06/08/16 [Duoneb 0.5 mg-3 mg/3 ml Soln] ampul.neb Potassium Chloride ER [K-Dur 20] 20 meq PO BID tab 03/17/17 Allergies Allergy/AdvReac Type Severity Reaction Status Date / Time carbamazepine [From Tegretol] Allergy Rash/Hives Verified 07/28/17 18:29 fluticasone propionate Allergy Rash/Hives Verified 07/28/17 18:29 [From Advair Diskus] insulin glulisine Allergy Unknown Verified 07/28/17 18:29 [From Apidra] insulin lispro [From Humalog] Allergy Unknown Verified 07/28/17 18:29 lactose Allergy Rash/Hives Verified 07/28/17 18:29 pork derived (porcine) Allergy Rash/Hives Verified 07/28/17 18:29 prochlorperazine edisylate Allergy Rash/Hives Verified 07/28/17 18:29 [From Compazine] prochlorperazine maleate Allergy Rash/Hives Verified 07/28/17 18:29 [From Compazine] salmeterol xinafoate Allergy Rash/Hives Verified 07/28/17 18:29 [From Advair Diskus] sulfamethoxazole Allergy Rash/Hives Verified 07/28/17 18:29 [From Bactrim] trimethoprim [From Bactrim] Allergy Rash/Hives Verified 07/28/17 18:29 Review of Systems ROS Statement: Those systems with pertinent positive or pertinent negative responses have been documented in the HPI. ROS Other: All systems not noted in ROS Statement are negative. Past Medical History Past Medical History: Asthma, Chest Pain / Angina, Heart Failure, COPD, CVA/TIA , Diabetes Mellitus, GERD/Reflux, Hyperlipidemia, Hypertension, Memory Impairment, Myocardial Infarction (ND), Musculoskeletal Disorder, Osteoarthritis (OA), Pneumonia, Seizure Disorder, Thyroid Disorder Additional Past Medical History / Comment(s): SPINAL ARTHRITIS, LEFT SIDED WEAKNESS FROM CVA IN 2001. immobile, neuropathy, DM -HAS INSULIN PUMP IRREG HEART BEAT,HIATAL HERNIA,CONSTIPATION Last Myocardial Infarction Date:: 2003 History of Any Multi-Drug Resistant Organisms: None Reported Past Surgical History: Appendectomy, Cholecystectomy Additional Past Surgical History / Comment(s): right elbow, knee, and wrist. RIGHT CARPAL TUNNEL SURGERY Past Anesthesia/Blood Transfusion Reactions: Postoperative Nausea & Vomiting ( PONV) Past Psychological History: No Psychological Hx Reported Smoking Status: Never smoker Past Alcohol Use History: None Reported Past Drug Use History: None Reported - Past Family History Father Family Medical History: Coronary Artery Disease (CAD), CVA/TIA, Diabetes Mellitus, Hyperlipidemia, Myocardial Infarction (ND), Seizure Disorder Mother Family Medical History: Diabetes Mellitus, Fibromyalgia Brother(s) Family Medical History: Hyperlipidemia General Exam - General Exam Comments Initial Comments: Constitutional: Awake alert Appears comfortable Head: Normocephalic atraumatic Eyes: no conjunctival injection No scleral icterus EOMI, pupils are 5 mm and reactive bilaterally Neck: No JVD Supple Heart: Regular rate rhythm normal S1-S2 no murmurs Lungs: Clear to auscultation bilaterally No wheezing No rales Abdomen: Soft nondistended nontender Extremities: Non edematous DP pulses intact Radial pulses intact Neuro: A&Ox3, CN 2 through 12 are grossly intact, 5 out of 5 strength in upper and lower extremities bilaterally, patient able to ambulate around the room and stand under his own power, normal sensation in all extremities, no ataxia No focal neurologic deficits Psych: Appropriate mood and affect Limitations: no limitations Course Vital Signs 07/28/17 07/28/17 07/28/17 17:27 18:17 18:53 Temperature 99 F Pulse Rate 109 H 100 92 Respiratory 16 16 16 Rate Blood Pressure 200/93 147/77 143/77 O2 Sat by Pulse 98 97 96 Oximetry Medical Decision Making - Medical Decision Making This is a 52-year-old male who presented for a breakthrough seizure. Patient is been compliant with his medications. Keppra levels and Depakote levels were drawn. Depakote levels were in therapeutic range. Labwork was reviewed and unremarkable. He does have a mild leukocytosis and his glucose is elevated however this is likely due to his steroid use. The patient does have an insulin pump and states that his blood sugar typically runs between 250 and 300. The patient otherwise feels well and has not had any further seizure activity while emergency department. The family feels comfortable taking him home. He was advised to call Dr. Cantrell in the morning and follow-up with him. I told him that if he had any worsening symptoms including any headaches, recurrent seizures, fevers, or any other answering symptoms she should return emergency department promptly for further evaluation. - Lab Data Result diagrams: 07/28/17 18:11 07/28/17 18:11 Lab Results 07/28/17 07/28/17 07/28/17 Range/Units 18:11 18:11 18:11 WBC 12.4 H (3.8-10.6) k/uL RBC 4.54 (4.30-5.90) m/uL Hgb 14.6 (13.0-17.5) gm/dL Hct 46.2 (39.0-53.0) % MCV 101.8 H (80.0-100.0) fL MCH 32.3 (25.0-35.0) pg MCHC 31.7 (31.0-37.0) g/dL RDW 13.4 (11.5-15.5) % Plt Count 158 (150-450) k/uL Neutrophils % 85 % Lymphocytes % 9 % Monocytes % 4 % Eosinophils % 1 % Basophils % 0 % Neutrophils # 10.5 H (1.3-7.7) k/uL Lymphocytes # 1.1 (1.0-4.8) k/uL Monocytes # 0.5 (0-1.0) k/uL Eosinophils # 0.2 (0-0.7) k/uL Basophils # 0.0 (0-0.2) k/uL Hypochromasia Slight Macrocytosis Slight Sodium 133 L (137-145) mmol/L Potassium 5.1 (3.5-5.1) mmol/L Chloride 95 L (98-107) mmol/L Carbon Dioxide 20 L (22-30) mmol/L Anion Gap 18 mmol/L BUN 9 (9-20) mg/dL Creatinine 0.80 (0.66-1.25) mg/dL Est GFR (MDRD) Af Amer >60 (>60 ml/min/1.73 sqM) Est GFR (MDRD) Non-Af >60 (>60 ml/min/1.73 sqM) Glucose 382 H (74-99) mg/dL Calcium 8.6 (8.4-10.2) mg/dL Magnesium 1.9 (1.6-2.3) mg/dL Total Bilirubin 0.7 (0.2-1.3) mg/dL AST 26 (17-59) U/L ALT 21 (21-72) U/L Alkaline Phosphatase 79 (38-126) U/L Total Protein 6.6 (6.3-8.2) g/dL Albumin 3.7 (3.5-5.0) g/dL Urine Color Light Yellow Urine Appearance Clear (Clear) Urine pH 5.0 (5.0-8.0) Ur Specific [place] 1.020 (1.001-1.035) Urine Protein Negative (Negative) Urine Glucose (UA) 4+ H (Negative) Urine Ketones Trace H (Negative) Urine Blood Negative (Negative) Urine Nitrite Negative (Negative) Urine Bilirubin Negative (Negative) Urine Urobilinogen <2.0 (<2.0) mg/dL Ur Leukocyte Esterase Negative (Negative) Valproic Acid 76.4 ug/mL Disposition Clinical Impression: Breakthrough seizure Disposition: HOME SELF-CARE Condition: Stable Instructions: Recurrent Seizures in Adults (ED) Referrals: Ladarius Celis MD [Primary Care Provider] - 1-2 days Sebastien Cantrell MD [STAFF PHYSICIAN] - 1-2 days
== END 2017-07-28 19:15 | disposition home or self-care (01) ==
LOC: EC 17:26
DX: G40.909 Epilepsy, unspecified, not intractable, without status epilepticus (principal); J44.9 Chronic obstructive pulmonary disease, unspecified; I11.0 Hypertensive heart disease with heart failure; I50.9 Heart failure, unspecified; I25.2 Old myocardial infarction; E07.9 Disorder of thyroid, unspecified; D72.829 Elevated white blood cell count, unspecified; E11.9 Type 2 diabetes mellitus without complications; Z86.73 Personal history of transient ischemic attack (TIA), and cerebral infarction without residual deficits; Z79.4 Long term (current) use of insulin; Z79.51 Long term (current) use of inhaled steroids; Z79.52 Long term (current) use of systemic steroids; Z79.82 Long term (current) use of aspirin; Z79.899 Other long term (current) drug therapy; Z88.1 Allergy status to other antibiotic agents; Z88.2 Allergy status to sulfonamides; Z88.8 Allergy status to other drugs, medicaments and biological substances; Z91.048 Other nonmedicinal substance allergy status
CPT/HCPCS: 36415; 71046; 80053; 80164; 80177; 81003; 83735; 85025; 96360; 99284

== ENCOUNTER 2018-01-18 08:13 | Inpatient (IN) | payer OTHER ==
[2018-01-18] MEDS ORDERED: SODIUM CHLORIDE 0.9% 500 ML IV ONE ×4 (08:19→11:31)
[2018-01-18] MEDS ORDERED: SODIUM CHLORIDE 0.9% 1,000 ML IV ONE (08:19)
[2018-01-18] MEDS ORDERED: ACETAMINOPHEN IV (For NPO) 1,000 MG in EMPTY BAG 1 BAG IVPB STA (08:19)
[2018-01-18 08:32] LABS: Glucose,Whole Blood 543 mg/dL (75-99)
[2018-01-18 08:36] LABS: Basophils % (A) 0 %; Eosinophils # (A) 0.1 k/uL (0-0.7); Eosinophils % (A) 1 %; HCT 43.9 % (39.0-53.0); Lymphocytes % (A) 9 %; MCH 31.2 pg (25.0-35.0); MCHC 31.8 g/dL (31.0-37.0); MCV 97.9 fL (80.0-100.0); Monocytes # (A) 0.3 k/uL (0-1.0); Monocytes % (A) 3 %; Neutrophils # (A) 9.6 k/uL (1.3-7.7); Neutrophils % (A) 87 %; Platelet Count 156 k/uL (150-450); RBC 4.48 m/uL (4.30-5.90); RDW 14.9 % (11.5-15.5); VBG PH 7.4 (7.31-7.41); WBC 11.1 k/uL (3.8-10.6)
--- NOTE | 2018-01-18 08:42 | ED ---
General Adult HPI - General Chief complaint: Altered Mental Status Stated complaint: Altered Mental Status Time Seen by Provider: 01/18/18 08:19 Source: family, EMS, RN notes reviewed, old records reviewed Mode of arrival: EMS Limitations: altered mental status - History of Present Illness Initial comments: 52-year-old male presenting for evaluation of confusion and slurred speech. Patient's symptoms began upon wakening at 7:30. His states she heard him getting out of bed, he had stumbled out of bed and was confused. He has history of previous CVA with residual left-sided deficit. Diabetes. Hypertension. Patient's is able to give history. She states over the past few days he has had urinary incontinence. She states his blood sugars have been running very high. According to EMS patient was found to be febrile, mildly tachycardic, stable blood pressure. Patient has additional past medical history of seizure disorder. Patient's states that she did check on him throughout the night at 2 AM he was resting comfortably, after 4:30 he was resting comfortably. He went to bed in his normal state. He had been complaining of feeling ill. No specific complaints were reported by the patient 's . - Related Data Home Medications Medication Instructions Recorded Confirmed Albuterol Sulfate [Ventolin HFA] 2 puff INHALATION RT-QID 03/03/14 01/18/18 Budesonide [Pulmicort] 0.5 mg INHALATION RT-BID 03/03/14 01/18/18 Budesonide/Formoterol Fumarate 2 puff INHALATION RT-BID 03/03/14 01/18/18 [Symbicort 80-4.5 Mcg Inhaler] Doxazosin [Cardura] 1 mg PO DAILY 03/03/14 01/18/18 Ferrous Sulfate [Feosol] 325 mg PO DAILY 03/03/14 01/18/18 Losartan Potassium [Cozaar] 50 mg PO DAILY 03/03/14 01/18/18 Methocarbamol [Robaxin] 500 mg PO TID 03/03/14 01/18/18 Montelukast [Singulair] 10 mg PO HS 03/03/14 01/18/18 Ranitidine HCl [Zantac] 150 mg PO BID 03/03/14 01/18/18 Levothyroxine Sodium [Synthroid] 50 mcg PO DAILY 12/19/14 01/18/18 Theophylline 12 Hour [Pedro Luis-Dur] 300 mg PO BID 12/19/14 01/18/18 Atorvastatin [Lipitor] 40 mg PO DAILY 12/04/15 01/18/18 Metoclopramide [Reglan] 5 mg PO TID 12/04/15 01/18/18 predniSONE 5 mg PO DAILY 12/04/15 01/18/18 Fenofibrate [Lofibra] 160 mg PO DAILY 05/20/16 01/18/18 Omeprazole 40 mg PO BID 05/20/16 01/18/18 Ergocalciferol (Vitamin D2) 50,000 unit PO TH 11/28/16 01/18/18 [Vitamin D2] Aspirin 325 mg PO DAILY 07/28/17 01/18/18 Insulin Aspart (For Pump) [NovoLOG 0.01 unit SQ-PUMP CONTINUOUS 07/28/17 (For Pump)] Sertraline [Zoloft] 25 mg PO DAILY 07/28/17 01/18/18 Diastat 5mg-7.5mg-10mg Rectal Kit 1 dose RECTAL ONCE PRN 01/18/18 01/18/18 Nitroglycerin Sl Tabs [Nitrostat] 0.4 mg SUBLINGUAL Q5M PRN 01/18/18 01/18/18 Valproic Acid [Depakene] 250 mg PO BID 01/18/18 01/18/18 levETIRAcetam [Keppra] 500 mg PO TID 01/18/18 01/18/18 Previous Rx's Medication Instructions Recorded Ipratropium-Albuterol Nebulize 3 ml INHALATION RT-QID #120 06/08/16 [Duoneb 0.5 mg-3 mg/3 ml Soln] ampul.neb Potassium Chloride ER [K-Dur 20] 20 meq PO BID tab 03/17/17 Allergies Allergy/AdvReac Type Severity Reaction Status Date / Time carbamazepine [From Tegretol] Allergy Rash/Hives Verified 01/18/18 09:09 fluticasone propionate Allergy Rash/Hives Verified 01/18/18 09:09 [From Advair Diskus] insulin glulisine Allergy Unknown Verified 01/18/18 09:09 [From Apidra] insulin lispro [From Humalog] Allergy Unknown Verified 01/18/18 09:09 lactose Allergy Rash/Hives Verified 01/18/18 09:09 pork derived (porcine) Allergy Rash/Hives Verified 01/18/18 09:09 prochlorperazine edisylate Allergy Rash/Hives Verified 01/18/18 09:09 [From Compazine] prochlorperazine maleate Allergy Rash/Hives Verified 01/18/18 09:09 [From Compazine] salmeterol xinafoate Allergy Rash/Hives Verified 01/18/18 09:09 [From Advair Diskus] sulfamethoxazole Allergy Rash/Hives Verified 01/18/18 09:09 [From Bactrim] trimethoprim [From Bactrim] Allergy Rash/Hives Verified 01/18/18 09:09 Review of Systems ROS Statement: Those systems with pertinent positive or pertinent negative responses have been documented in the HPI. ROS Other: All systems not noted in ROS Statement are negative. Limitations: ROS unobtainable due to patients medical condition Past Medical History Past Medical History: Asthma, Chest Pain / Angina, Heart Failure, COPD, CVA/TIA , Diabetes Mellitus, GERD/Reflux, Hyperlipidemia, Hypertension, Memory Impairment, Myocardial Infarction ([place]), Musculoskeletal Disorder, Osteoarthritis (OA), Pneumonia, Seizure Disorder, Thyroid Disorder Additional Past Medical History / Comment(s): SPINAL ARTHRITIS, LEFT SIDED WEAKNESS FROM CVA IN 2001. immobile, neuropathy, DM -HAS INSULIN PUMP IRREG HEART BEAT,HIATAL HERNIA,CONSTIPATION Last Myocardial Infarction Date:: 2003 History of Any Multi-Drug Resistant Organisms: None Reported Past Surgical History: Appendectomy, Cholecystectomy Additional Past Surgical History / Comment(s): right elbow, knee, and wrist. RIGHT CARPAL TUNNEL SURGERY Past Anesthesia/Blood Transfusion Reactions: Postoperative Nausea & Vomiting ( PONV) Past Psychological History: No Psychological Hx Reported Smoking Status: Never smoker Past Alcohol Use History: None Reported Past Drug Use History: None Reported - Past Family History Father Family Medical History: Coronary Artery Disease (CAD), CVA/TIA, Diabetes Mellitus, Hyperlipidemia, Myocardial Infarction ([place]), Seizure Disorder Mother Family Medical History: Diabetes Mellitus, Fibromyalgia Brother(s) Family Medical History: Hyperlipidemia General Exam Limitations: altered mental status General appearance: lethargic Head exam: Present: atraumatic, normocephalic Eye exam: Present: normal appearance, PERRL ENT exam: Present: mucous membranes dry Neck exam: Present: normal inspection. Absent: tenderness, meningismus Respiratory exam: Present: normal lung sounds bilaterally, rhonchi (Scattered rhonchi, this may be transmitted upper airway sounds). Absent: respiratory distress, wheezes Cardiovascular Exam: Present: normal rhythm, tachycardia GI/Abdominal exam: Present: soft, distended, tenderness (Mild left lower quadrant tenderness). Absent: guarding, rebound Extremities exam: Present: normal capillary refill. Absent: pedal edema, joint swelling Neurological exam: Present: alert. Absent: oriented X3 (Oriented 1, to name) Skin exam: Present: warm, dry, intact. Absent: cyanosis, diaphoretic Course Vital Signs 01/18/18 01/18/18 01/18/18 08:15 09:31 10:11 Temperature 103.8 F H 103.6 F H 101.9 F H Pulse Rate 125 H 133 H 126 H Respiratory 24 22 24 Rate Blood Pressure 175/102 189/79 154/66 O2 Sat by Pulse 95 97 97 Oximetry 01/18/18 01/18/18 10:36 11:14 Temperature 100.7 F H Pulse Rate 117 H 121 H Respiratory 22 20 Rate Blood Pressure 146/70 145/63 O2 Sat by Pulse 97 97 Oximetry - Reevaluation(s) Reevaluation #1: 01/18/18 10:21 On reevaluation, patient is significantly improved, near normal mental status according to family. He is alert and oriented 2. He is complaining only of some lower abdominal pain. CT of the abdomen will be obtained. EKG Findings - EKG Comments: EKG Findings:: EKG: Sinus tachycardia, rate of 1:15, ND interval 146, QRS duration 74, QTC 431, no ST segment elevation or depression Procedures - Sepsis Sepsis Focused Exam #1 Sepsis Focused Exam Date: 01/18/18 Sepsis Focused Exam Time: 11:05 Sepsis Focused Exam Complete: Yes Vital Signs & RN Notes Reviewed: Yes Capillary Refill: < 2 Seconds: Fingers, Toes Peripheral Pulses: Normal: Radial (R), Radial (L) Skin Color: Normal for Patient Respiratory Exam: rhonchi, decreased breath sounds Cardiovascular Exam: normal rhythm, tachycardia Medical Decision Making - Medical Decision Making 52-year-old male presenting with confusion. Patient is found to be febrile, and tachycardic, he has bilateral rhonchi on auscultation. Clinically appears very dehydrated. Workup in the emergency department reveals mild leukocytosis 11.1, stable hemoglobin, normal venous pH, lactic acid is significantly elevated at 5.8. Chest x-ray does show right basilar atelectasis versus pneumonia. Urinalysis is negative for signs of infection. CT of the brain is obtained is negative for intracranial hemorrhage or mass effect. Patient's symptoms are likely attributed to pneumonia. He is started on IV antibiotics. After fluid resuscitation as well as antipyretics patient's mental status improves to baseline. Patient will be admitted for continued IV antibiotics and reevaluation. - Lab Data Result diagrams: 01/18/18 08:20 01/18/18 08:20 Lab Results 01/18/18 01/18/18 01/18/18 Range/Units 08:20 08:20 08:20 WBC 11.1 H (3.8-10.6) k/uL RBC 4.48 (4.30-5.90) m/uL Hgb 14.0 (13.0-17.5) gm/dL Hct 43.9 (39.0-53.0) % MCV 97.9 (80.0-100.0) fL MCH 31.2 (25.0-35.0) pg MCHC 31.8 (31.0-37.0) g/dL RDW 14.9 (11.5-15.5) % Plt Count 156 (150-450) k/uL Neutrophils % 87 % Lymphocytes % 9 % Monocytes % 3 % Eosinophils % 1 % Basophils % 0 % Neutrophils # 9.6 H (1.3-7.7) k/uL Lymphocytes # 1.0 (1.0-4.8) k/uL Monocytes # 0.3 (0-1.0) k/uL Eosinophils # 0.1 (0-0.7) k/uL Basophils # 0.0 (0-0.2) k/uL PT 9.9 (9.0-12.0) sec INR 1.0 (<1.2) APTT 21.2 L (22.0-30.0) sec VBG pH (7.31-7.41) VBG pCO2 (37-51) mmHg VBG HCO3 (24-28) mmol/L Sodium 136 L (137-145) mmol/L Potassium 5.1 (3.5-5.1) mmol/L Chloride 100 (98-107) mmol/L Carbon Dioxide 22 (22-30) mmol/L Anion Gap 14 mmol/L BUN 8 L (9-20) mg/dL Creatinine 0.73 (0.66-1.25) mg/dL Est GFR (CKD-EPI)AfAm >90 (>60 ml/min/1.73 sqM) Est GFR (CKD-EPI)NonAf >90 (>60 ml/min/1.73 sqM) Glucose 258 H (74-99) mg/dL POC Glucose (mg/dL) (75-99) mg/dL POC Glu Livestock Yard Attendant ID Lactic Ac Sepsis Rflx Plasma Lactic Acid Slick (0.7-2.0) mmol/L Calcium 8.4 (8.4-10.2) mg/dL Total Bilirubin 0.6 (0.2-1.3) mg/dL AST 31 (17-59) U/L ALT 28 (21-72) U/L Alkaline Phosphatase 78 (38-126) U/L Total Protein 6.4 (6.3-8.2) g/dL Albumin 3.7 (3.5-5.0) g/dL Urine Color Urine Appearance (Clear) Urine pH (5.0-8.0) Ur Specific [place] (1.001-1.035) Urine Protein (Negative) Urine Glucose (UA) (Negative) Urine Ketones (Negative) Urine Blood (Negative) Urine Nitrite (Negative) Urine Bilirubin (Negative) Urine Urobilinogen (<2.0) mg/dL Ur Leukocyte Esterase (Negative) Acetone, Qual Negative (Negative) 01/18/18 01/18/18 01/18/18 Range/Units 08:20 08:20 08:27 WBC (3.8-10.6) k/uL RBC (4.30-5.90) m/uL Hgb (13.0-17.5) gm/dL Hct (39.0-53.0) % MCV (80.0-100.0) fL MCH (25.0-35.0) pg MCHC (31.0-37.0) g/dL RDW (11.5-15.5) % Plt Count (150-450) k/uL Neutrophils % % Lymphocytes % % Monocytes % % Eosinophils % % Basophils % % Neutrophils # (1.3-7.7) k/uL Lymphocytes # (1.0-4.8) k/uL Monocytes # (0-1.0) k/uL Eosinophils # (0-0.7) k/uL Basophils # (0-0.2) k/uL PT (9.0-12.0) sec INR (<1.2) APTT (22.0-30.0) sec VBG pH 7.40 (7.31-7.41) VBG pCO2 40 (37-51) mmHg VBG HCO3 24 (24-28) mmol/L Sodium (137-145) mmol/L Potassium (3.5-5.1) mmol/L Chloride (98-107) mmol/L Carbon Dioxide (22-30) mmol/L Anion Gap mmol/L BUN (9-20) mg/dL Creatinine (0.66-1.25) mg/dL Est GFR (CKD-EPI)AfAm (>60 ml/min/1.73 sqM) Est GFR (CKD-EPI)NonAf (>60 ml/min/1.73 sqM) Glucose (74-99) mg/dL POC Glucose (mg/dL) 543 H (75-99) mg/dL POC Glu Livestock Yard Attendant ID Rowan Ordonez Lactic Ac Sepsis Rflx Plasma Lactic Acid Slick 5.8 H* (0.7-2.0) mmol/L Calcium (8.4-10.2) mg/dL Total Bilirubin (0.2-1.3) mg/dL AST (17-59) U/L ALT (21-72) U/L Alkaline Phosphatase (38-126) U/L Total Protein (6.3-8.2) g/dL Albumin (3.5-5.0) g/dL Urine Color Urine Appearance (Clear) Urine pH (5.0-8.0) Ur Specific [place] (1.001-1.035) Urine Protein (Negative) Urine Glucose (UA) (Negative) Urine Ketones (Negative) Urine Blood (Negative) Urine Nitrite (Negative) Urine Bilirubin (Negative) Urine Urobilinogen (<2.0) mg/dL Ur Leukocyte Esterase (Negative) Acetone, Qual (Negative) 01/18/18 01/18/18 01/18/18 Range/Units 09:10 09:32 12:30 WBC (3.8-10.6) k/uL RBC (4.30-5.90) m/uL Hgb (13.0-17.5) gm/dL Hct (39.0-53.0) % MCV (80.0-100.0) fL MCH (25.0-35.0) pg MCHC (31.0-37.0) g/dL RDW (11.5-15.5) % Plt Count (150-450) k/uL Neutrophils % % Lymphocytes % % Monocytes % % Eosinophils % % Basophils % % Neutrophils # (1.3-7.7) k/uL Lymphocytes # (1.0-4.8) k/uL Monocytes # (0-1.0) k/uL Eosinophils # (0-0.7) k/uL Basophils # (0-0.2) k/uL PT (9.0-12.0) sec INR (<1.2) APTT (22.0-30.0) sec VBG pH (7.31-7.41) VBG pCO2 (37-51) mmHg VBG HCO3 (24-28) mmol/L Sodium (137-145) mmol/L Potassium (3.5-5.1) mmol/L Chloride (98-107) mmol/L Carbon Dioxide (22-30) mmol/L Anion Gap mmol/L BUN (9-20) mg/dL Creatinine (0.66-1.25) mg/dL Est GFR (CKD-EPI)AfAm (>60 ml/min/1.73 sqM) Est GFR (CKD-EPI)NonAf (>60 ml/min/1.73 sqM) Glucose (74-99) mg/dL POC Glucose (mg/dL) 213 H (75-99) mg/dL POC Glu Livestock Yard Attendant ID Bossman Sesay Lactic Ac Sepsis Rflx Y Plasma Lactic Acid Slick (0.7-2.0) mmol/L Calcium (8.4-10.2) mg/dL Total Bilirubin (0.2-1.3) mg/dL AST (17-59) U/L ALT (21-72) U/L Alkaline Phosphatase (38-126) U/L Total Protein (6.3-8.2) g/dL Albumin (3.5-5.0) g/dL Urine Color Light Yellow Urine Appearance Clear (Clear) Urine pH 6.5 (5.0-8.0) Ur Specific [place] 1.022 (1.001-1.035) Urine Protein Negative (Negative) Urine Glucose (UA) 4+ H (Negative) Urine Ketones 1+ H (Negative) Urine Blood Negative (Negative) Urine Nitrite Negative (Negative) Urine Bilirubin Negative (Negative) Urine Urobilinogen <2.0 (<2.0) mg/dL Ur Leukocyte Esterase Negative (Negative) Acetone, Qual (Negative) Critical Care Time Critical Care Time: Yes Total Critical Care Time: 35 Disposition Clinical Impression: Pneumonia, Lactic acidosis Disposition: ADMITTED IP TO THIS [facility] Condition: Serious Is patient prescribed a controlled substance at d/c from ED?: No Referrals: Ladarius Celis MD [Primary Care Provider] - 1-2 days Decision to Admit Reason: Admit from EC Decision Date: 01/18/18 Decision Time: 12:47
[2018-01-18 08:47] LABS: Prothrombin Time 9.9 sec (9.0-12.0)
[2018-01-18 08:59] LABS: ALT 28 U/L (21-72); AST 31 U/L (17-59); Albumin 3.7 g/dL (3.5-5.0); Alkaline Phosphatase 78 U/L (38-126); Anion Gap 14 mmol/L; Blood Urea Nitrogen 8 mg/dL (9-20); Calcium 8.4 mg/dL (8.4-10.2); Carbon Dioxide 22 mmol/L (22-30); Chloride 100 mmol/L (98-107); Glucose 258 mg/dL (74-99); Sodium 136 mmol/L (137-145); Total Bilirubin 0.6 mg/dL (0.2-1.3); Total Protein 6.4 g/dL (6.3-8.2)
[2018-01-18 09:02] LABS: Partial Thromboplastin Time 21.2 sec (22.0-30.0); Potassium 5.1 mmol/L (3.5-5.1)
--- NOTE | 2018-01-18 09:03 | CT ---
EXAMINATION TYPE: CT brain wo con DATE OF EXAM: 01/18/2018 HISTORY: Altered mental status CT DLP: 1098.80 mGycm. Automated Exposure Control for Dose Reduction was Utilized. TECHNIQUE: CT scan of the head is performed without contrast. COMPARISON: CT brain March 16, 2017. FINDINGS: There is no acute intracranial hemorrhage or midline shift identified. There is diffuse v entricular and sulcal prominence consistent with diffuse age-related cerebral atrophy. Goode-white mat ter differentiation is maintained. Some vascular calcification distal internal carotid arteries and distal right vertebral artery is redemonstrated. The globes are intact and the visualized sinuses are clear. IMPRESSION: No acute intracranial hemorrhage or midline shift. There is stable moderate diffuse age -related cerebral atrophy redemonstrated.
[2018-01-18] MEDS ORDERED: KETOROLAC 30 MG/ML 1 ML VIAL IVP STA (09:32)
[2018-01-18] MEDS ORDERED: VANCOMYCIN IV PER PHARMACY 1 EACH MISC MISCELLANE PRN (09:35)
[2018-01-18] MEDS ORDERED: CEFEPIME 2 GM in SODIUM CHLORIDE 0.9% 50 ML IVPB STA (09:35)
[2018-01-18] MEDS ORDERED: VANCOMYCIN 2,000 MG in SODIUM CHLORIDE 0.9% 500 ML IVPB STA (09:40)
[2018-01-18 09:48] LABS: Appearance,Urine Clear (Clear); Bilirubin,Urine Negative (Negative); Blood,Urine Negative (Negative); Color,Urine Light Yellow; Glucose,Urine (UA) 4+ (Negative); Ketones,Urine 1+ (Negative); Leukocyte Esterase,Urine Negative (Negative); Nitrite,Urine Negative (Negative); PH, Urine 6.5 (5.0-8.0); Protein,Urine Negative (Negative); Specific Gravity,Urine 1.022 (1.001-1.035); Urobilinogen,Urine <2.0 mg/dL (<2.0)
--- NOTE | 2018-01-18 09:53 | XR ---
EXAMINATION TYPE: XR chest 1V portable DATE OF EXAM: 01/18/2018 COMPARISON: Chest x-ray July 28, 2017 HISTORY: Altered mental status and weakness. TECHNIQUE: Single AP portable frontal upright view of the chest is obtained. FINDINGS: There is persistent low lung volumes. There is increasing right lower lung opacity could reflect developing atelectasis and/or infiltrate. The cardiac silhouette size remains enlarged. Old r ight mid lateral rib fractures are redemonstrated. IMPRESSION: Low lung volumes and cardiomegaly with perhaps developing right basilar atelectasis and/ or infiltrate. Consider progress two-view chest x-ray.
--- NOTE | 2018-01-18 11:21 | CT ---
EXAMINATION TYPE: CT abdomen pelvis w con DATE OF EXAM: 01/18/2018 COMPARISON: 11/03/2012 HISTORY: Abdominal pain CT DLP: 2099 mGycm Automated exposure control for dose reduction was used. TECHNIQUE: Helical acquisition of images was performed from the lung bases through the pelvis. CONTRAST: Performed without Oral Contrast and with IV Contrast, patient injected with 100 mL of Isovue 300. FINDINGS: LUNG BASES: No significant abnormality is appreciated. LIVER/GB: Hepatic parenchyma is diffusely hypoattenuated in comparison to that of the spleen, most co mmonly seen in hepatic steatosis. This finding limits evaluation for hepatic masses. No gross evidenc e of hepatic mass is seen. No intrahepatic biliary ductal dilatation. Gallbladder surgically absent. PANCREAS: Moderate pancreatic parenchyma atrophy is noted. SPLEEN: No significant abnormality is seen. ADRENALS: No significant abnormality is seen. KIDNEYS: 1.2 cm left renal cyst is seen. No evidence of hydronephrosis or otherwise abnormal enhancem ent of either kidney.. FREE AIR: No free air is visualized. ADENOPATHY: No greater than 1 cm short axis lymph node is seen within the abdomen or pelvis. REPRODUCTIVE ORGANS: No significant abnormality is seen URINARY BLADDER: Subserosal fat deposition is seen within the urinary bladder wall, which can be see n in chronic inflammatory processes. No surrounding inflammation is seen. Urinary bladder is decompre ssed and therefore incompletely evaluated on CT. OSSEOUS STRUCTURES: 0 multilevel mild degenerative changes of the osseous structures are present. BOWEL: Moderate amount retained colonic stool is noted throughout the colon, limiting evaluation of the bowel. No small or large bowel dilatation is seen throughout the abdomen. OTHER: Moderate calcific and noncalcific atheromatous changes are seen of the abdominal aorta and its branches. IMPRESSION: NO ACUTE INTRA-ABDOMINAL PROCESS. REDEMONSTRATION OF HEPATIC STEATOSIS, PANCREATIC ATROPHY, AND A SMA LL LEFT RENAL CYST.
[2018-01-18 12:33] LABS: Glucose,Whole Blood 213 mg/dL (75-99)
[2018-01-18] MEDS ORDERED: levETIRAcetam 500 MG TAB PO STA (12:39)
[2018-01-18] MEDS ORDERED: IBUPROFEN 400 MG TAB PO PRN (12:42)
[2018-01-18] MEDS ORDERED: NALOXONE 0.4 MG/ML 1 ML VIAL IV PRN (12:42)
[2018-01-18] MEDS ORDERED: VALPROIC ACID ORAL SOLN 250 MG/5 ML CUP PO STA (12:45)
[2018-01-18] MEDS ORDERED: IPRATROPIUM-ALBUTEROL 3 ML NEB INHALATION STA (14:06)
[2018-01-18] MEDS: IPRATROPIUM-ALBUTEROL 3 ML NEB INHALATION SCH ×2 (15:53→20:29)
[2018-01-18 17:12] LABS: Glucose,Whole Blood 245 mg/dL (75-99)
[2018-01-18] MEDS: ACETAMINOPHEN TAB 325 MG TAB PO PRN (17:23)
[2018-01-18] MEDS ORDERED: INSULIN ASPART 100 UNIT/ML 1 ML 10 ML VIAL SQ ONE (18:01)
[2018-01-18] MEDS ORDERED: NITROGLYCERIN SL TABS 0.4 MG TAB SUBLINGUAL PRN (20:39)
[2018-01-18 20:59] LABS: Glucose,Whole Blood 333 mg/dL (75-99)
[2018-01-18] MEDS ORDERED: FAMOTIDINE 20 MG TAB PO SCH (21:00)
[2018-01-18] MEDS ORDERED: VANCOMYCIN 2,000 MG in SODIUM CHLORIDE 0.9% 500 ML IVPB SCH (21:00)
[2018-01-18] MEDS ORDERED: INSULIN ASPART 100 UNIT/ML 1 ML 10 ML VIAL SQ SCH (21:00)
[2018-01-18] MEDS: VALPROIC ACID ORAL SOLN 250 MG/5 ML CUP PO SCH (21:36)
[2018-01-18] MEDS: traMADol 50 MG TAB PO SCH (21:36)
[2018-01-18] MEDS: MONTELUKAST 10 MG TAB PO SCH (21:36)
[2018-01-18] MEDS: CEFEPIME 2 GM in SODIUM CHLORIDE 0.9% 50 ML IVPB SCH (21:48)
--- NOTE | 2018-01-18 21:52 | HP ---
HISTORY AND PHYSICAL DATE OF ADMISSION: 01/18/2018 DATE OF SERVICE: 01/18/2018 PRESENTING COMPLAINT: Chest congestion. HISTORY OF PRESENTING COMPLAINT: This is a 52-year-old patient of Dr. Celis with a rather extensive medical history. Chronic stable medical conditions include congestive heart failure, GERD, hyperlipidemia, hypertension, osteoarthritis, seizure disorder. The patient had a stroke in 2001, left arm weakness and more significant left leg weakness. No sensation in the left leg. The patient also got a insulin pump. Pretty much wheelchair-bound. The patient is very hard of hearing. The patient presented today after becoming more confused. Fell off the bed. The patient has got a cough and congested. The patient is found to have a fever of 101.9 in the ER and tachycardia for an over septic picture. Chest x-ray was suggestive of possible infiltrate. The patient admitted for the same. Being admitted for the same. Not able to expectorate. REVIEW OF SYSTEMS: Difficult to obtain because patient is very hard of hearing. GENERAL: Fever, weak and tired. HEENT: Decreased hearing. RESPIRATORY: Congested cough not able to expectorate. CARDIOVASCULAR none. GASTROINTESTINAL none. GENITOURINARY none. MUSCULOSKELETAL: Arthritic pain in the joints. DERMATOLOGICAL and HEMATOLOGIC, LYMPHATIC: None. PSYCHIATRY: None. NEUROLOGICAL: Weakness in the left arm and much more severe weakness in the left leg. PAST MEDICAL HISTORY: Heart failure, COPD, stroke, diabetes, GERD, hyperlipidemia, hypertension, memory impairment, osteoarthritis, seizure disorder, spinal arthritis, left-sided weakness from stroke in 2001, left leg more than the left arm, peripheral neuropathy, insulin pump, hiatal hernia. PAST SURGICAL HISTORY: Appendectomy, cholecystectomy, right elbow, knee and fist, right carpal tunnel surgery. SOCIAL HISTORY: The patient is a bit dyslexic. Lives with his . Pretty much wheelchair and power chair bound, able to transfer self. No smoking. No alcohol. FAMILY HISTORY: Coronary artery disease, stroke, diabetes, hyperlipidemia, seizure disorder. HOME MEDICATIONS: 1. Reglan 5 mg daily. 2. NovoLog pump. 3. Prednisone 10 mg a day. 4. Potassium 20 mEq a day. 5. Actos 50 mg a day. 6. Ultram 50 mg t.i.d. 7. Depakote ER 1000 mg a day. 8. Depakote ER 250 mg a day. 9. Keppra 500 mg t.i.d. 10.Depakene 250 mg p.o. b.i.d. 11.Pedro Luis-Dur 3 mg p.o. b.i.d. 12.Zoloft 25 mg a day. 13.Zantac 150 mg b.i.d. 14.Omeprazole 40 mg b.i.d. 15.Nitrostat 0.4 sublingual q.5 p.r.n. 16.Singulair 10 mg p.o. q.h.s. 17.Robaxin 500 mg p.o. t.i.d. 18.Cozaar 50 mg p.o. daily. 19.Synthroid 50 mcg a day. 20.DuoNeb q.i.d. 21.Iron 325 p.o. daily. 22.Lofibra 160 mg a day. 23.Vitamin D2 71864 units p.o. on . 24.Cardura 1 mg p.o. daily. 25.Symbicort 80/4.5, 2 puffs b.i.d. 26.Pulmicort 0.5 nebulizer b.i.d. 27.Lipitor 40 mg a day. 28.Aspirin 325 mg a day. 29.Ventolin HFA 2 puffs q.i.d. ALLERGIES: TO TEGRETOL, APIDRA, LISPRO, LACTOSE, PORK DERIVED, COMPAZINE, ADVAIR, BACTRIM. PHYSICAL EXAMINATION: VITAL SIGNS: Temperature 101.9, pulse 126, respiration 24, blood pressure 140/66, pulse ox 97% on 2 L. GENERAL APPEARANCE: Obese BMI 43.3. Lying in bed, tired-appearing. EYES: Pupils equal. Conjunctive normal. HEENT: External appearance of nose and ears normal. Oral cavity dry. Decreased hearing. NECK: Short thick, JVD unable to assess. Mass not palpable. RESPIRATORY: Effort increased. LUNGS: Distant breath sounds. CARDIOVASCULAR: 1st and 2nd sounds normal. No edema. ABDOMEN: Slightly distended, soft. Liver and spleen not palpable. LYMPHATICS: No lymph nodes palpable in neck or axillae. PSYCHIATRY: Alert and orient x3. Mood and affect normal. Though difficult to ascertain because of hard of hearing. NEUROLOGICAL: Pupils equal. Slight facial asymmetry. Power in the left arm is 4 x 5, power in the left leg is 1 to 2 x 5. Decreased sensation in the left leg. INVESTIGATIONS: White count 11, hemoglobin 14, potassium 5.1, BUN 8, creatinine 0.73. Lactic acid 5.8. Chest x-ray, portable, possible infiltrate. ASSESSMENT: 1. Pneumonia suspect gram-negative organism causing severe sepsis, present on admission. 2. Moderate persistent asthma with possible acute exacerbation. 3. Left-sided weakness with more weakness in the left leg from a prior stroke. 4. Diabetes mellitus type 2, chronically on insulin pump. 5. Gastroesophageal reflux disease. 6. Hyperlipidemia. 7. Essential hypertension. 8. Memory impairment. 9. Osteoarthritis. 10.Hypothyroid. 11.Peripheral neuropathy. PLAN: We will put the patient on ceftriaxone. Home medications are resumed. The patient also put on a sliding scale sliding scale. Given patient's multiple comorbidities, prognosis is guarded. is not present. Care was discussed with the patient. Copy to Dr. Celis. LAWSON / BENNETT: [id number] /
[2018-01-18] MEDS: levETIRAcetam 500 MG TAB PO SCH (22:00)
[2018-01-18] MEDS: METHOCARBAMOL 500 MG TAB PO SCH (22:00)
[2018-01-19] MEDS ORDERED: ACETAMINOPHEN IV (For NPO) 1,000 MG in EMPTY BAG 1 BAG IVPB PRN (03:20)
[2018-01-19 03:28] LABS: Glucose,Whole Blood 235 mg/dL (75-99)
[2018-01-19] MEDS ORDERED: PROPOFOL 100 ML IV ONE (03:28)
--- NOTE | 2018-01-19 03:39 | XR ---
EXAM: XR Chest, 1 View CLINICAL HISTORY: ITS.REASON XR Reason: possible aspiration TECHNIQUE: Frontal view of the chest. COMPARISON: Chest radiography 01/18/18 FINDINGS: Lungs: Normal lung alignment is redemonstrated. Diffuse interstitial thickening may represent edema. Mild cephalization of the pulmonary vascular flow. Ill-defined opacity at the right base is unchanged from before. Pleural space: No pneumothorax. Heart: Unremarkable. No cardiomegaly. Mediastinum: Unremarkable. Bones/joints: Unremarkable. Other findings: No other significant interval change. IMPRESSION: Cannot exclude aspiration at the right base. No change from prior study, otherwise.
[2018-01-19 03:43] LABS: Basophils % (A) 0 %; Eosinophils % (A) 1 %; HCT 41.7 % (39.0-53.0); HGB 13.1 gm/dL (13.0-17.5); Lymphocytes # (A) 0.5 k/uL (1.0-4.8); Lymphocytes % (A) 9 %; MCH 30.3 pg (25.0-35.0); MCHC 31.3 g/dL (31.0-37.0); MCV 96.8 fL (80.0-100.0); Mean Platelet Volume 7.2; Monocytes # (A) 0.3 k/uL (0-1.0); Monocytes % (A) 5 %; Neutrophils # (A) 4.6 k/uL (1.3-7.7); Neutrophils % (A) 85 %; Platelet Count 114 k/uL (150-450); RBC 4.31 m/uL (4.30-5.90); RDW 15.2 % (11.5-15.5); WBC 5.5 k/uL (3.8-10.6)
[2018-01-19] MEDS: PROPOFOL 1,000 MG in EMPTY BAG 1 BAG IV SCH ×4 (03:45→21:31)
[2018-01-19 04:06] LABS: Anion Gap 13 mmol/L; Blood Urea Nitrogen 5 mg/dL (9-20); Calcium 8.2 mg/dL (8.4-10.2); Carbon Dioxide 18 mmol/L (22-30); Chloride 101 mmol/L (98-107); Glucose 250 mg/dL (74-99); Sodium 132 mmol/L (137-145)
[2018-01-19 04:09] LABS: Glucose,Whole Blood 294 mg/dL (75-99)
[2018-01-19 04:11] LABS: ABG Base Excess -7.3 mmol/L; ABG HCO3 19 mmol/L (21-25); ABG PCO2 35 mmHg (35-45); ABG PH 7.34 (7.35-7.45); ABG PO2 >400 mmHg (83-108); ABG TCO2 20 mmol/L (19-24)
--- NOTE | 2018-01-19 04:12 | XR ---
EXAM: XR Chest, 1 View CLINICAL HISTORY: ITS.REASON XR Reason: Intubation TECHNIQUE: Frontal view of the chest. COMPARISON: No relevant prior studies available. FINDINGS: See Impression. IMPRESSION: Cardiomegaly and/or pericardial effusion. Central interstitial pulmonary edema suspected. Small right pleural effusion. Adjacent subsegmental atelectasis. Discoid atelectasis at the periphery of the right lower lung. Endotracheal tube tip is located at the level of the clavicles, 6.2 cm above the lyudmila.
[2018-01-19] MEDS ORDERED: SODIUM CHLORIDE 0.9% 2,000 ML IV ONE (04:47)
[2018-01-19 05:12] LABS: Hemoglobin A1C 8.9 % (4.0-6.0)
[2018-01-19] MEDS ORDERED: INSULIN ASPART 100 UNIT/ML 1 ML 10 ML VIAL SQ SCH (06:00)
[2018-01-19] MEDS ORDERED: NOREPINEPHRIN 4 MG-0.9% NS PMX 4 MG/250 ML ML IV ONE (06:11)
[2018-01-19] MEDS ORDERED: NOREPINEPHRIN 4 MG-0.9% NS PMX 4 MG/250 ML ML IV SCH (06:15)
[2018-01-19 06:31] LABS: Glucose,Whole Blood 274 mg/dL (75-99)
[2018-01-19 07:03] LABS: Appearance,Urine Clear (Clear); Bacteria,Urine Rare /hpf; Bilirubin,Urine Negative (Negative); Blood,Urine Small (Negative); Color,Urine Yellow; Glucose,Urine (UA) 4+ (Negative); Hyaline Casts,Urine 4 /lpf (0-2); Leukocyte Esterase,Urine Negative (Negative); Mucus,Urine Rare /hpf; Nitrite,Urine Negative (Negative); PH, Urine 5.5 (5.0-8.0); Protein,Urine 1+ (Negative); RBC,Urine 15 /hpf (0-5); Specific Gravity,Urine 1.015 (1.001-1.035); Squamous Epithelial Cell,Urine <1 /hpf (0-4); Urobilinogen,Urine <2.0 mg/dL (<2.0); WBC,Urine 2 /hpf (0-5)
[2018-01-19] MEDS ORDERED: PANTOPRAZOLE 40 MG TABLET PO SCH (07:30)
--- NOTE | 2018-01-19 07:30 | XR ---
EXAMINATION TYPE: XR chest 1V portable DATE OF EXAM: 01/19/2018 Comparison: 01/19/2018 Clinical History: 52 year-old male tube placement Findings: ET tube tip at the level of the medial clavicular heads. NG tube courses below the diaphragm. Dextro convex scoliosis. Heart normal size. There is patchy right basilar opacity and trace right pleural ef fusion. Interstitial edema shows improvement from prior. Impression: 1. Continued trace right pleural effusion with right basilar patchy opacity that could represent atel ectasis or infiltrate. 2. Pulmonary vascular congestion has improved.
[2018-01-19 07:35] LABS: Ketones,Urine 2+ (Negative)
[2018-01-19] MEDS: IPRATROPIUM-ALBUTEROL 3 ML NEB INHALATION SCH ×4 (07:46→19:38)
--- NOTE | 2018-01-19 07:47 | P.CNPUL ---
History of Present Illness Consult date: 01/19/18 Chief complaint: Sepsis, altered mentation History of present illness: This is a 52-year-old morbidly obese male patient with history of a CVA approximately 18 years ago and the patient has been wheelchair bound since then with left-sided hemiplegia and weakness related to the stroke. The patient also has history of coronary artery disease, history of seizure disorder maintained on multiple antiepileptic medication, history of hypertension and hyperlipidemia and congestion heart failure. The patient is also hard of hearing. Apparently this patient has been having symptoms of cough and congestion and shortness of breath and he had contacted his primary care physician and he was given antibiotics on outpatient basis. Subsequently his condition got worse and he was having fever with temperatures of 101.9 and he was also becoming more lethargic. For that reason the patient was brought into the emergency department. Initial chest x-ray on admission showed low lung volumes and cardiomegaly and right basilar infiltration. He did complain of abdominal pain. For that reason a CAT scan of the abdomen was done that showed no acute intra-abdominal process and there was evidence of hepatic steatosis and pancreatic atrophy and small left renal cyst. In fact, the lung bases did not show any significant abnormalities. The CAT scan of the brain that was done in emergency department showed no evidence of any acute intracranial hemorrhage or midline shift. There was stable moderate diffuse age-related atrophy and was treated. Overnight, the patient's condition got worse. The patient started having high-grade fever with a temperature of 105. He was also tachycardic, sinus tachycardia with a heart rate of 1:30. He was also found to be tachypneic with respiration the mid 40s and he was unresponsive to verbal stimulation. Note that he did not have any seizure activity at least no seizure activity noted by the nursing staff or by the family. At that point the patient was considered to be profoundly septic. He was intubated and was brought to the intensive care unit for further management. Overnight, the patient received a total of 3 L and he was also started on pressors and currently is on norepinephrine infusion at the rate of 5 mics per KG per minute. He is still spiking fever last temperature spike was 103.2. His antibiotic coverage included IV cefepime. Currently sedated with Diprivan. He is calm and comfortable. He is on a mechanical ventilator assist control mode at the rate of 20, tidal volume of 450, FiO2 50% and a PEEP of 5. He is chest x-ray from this morning he still showing some right basilar atelectasis/infiltrate along with cardiomegaly. The blood gases post intubation showed a pH of 7.34 with a pCO2 of 35 and a pO2 of more than 400 and based on that the FiO2 is down to 50%. His initial lactic acid level was 2.6 and dropped down to 1.8. Duque cultures were sent and the results are still pending for now. Note that the patient was not hypoglycemic on the floor. The patient did not have any seizure activity on the floor. The patient did not have any headaches or neck stiffness on the floor. However, he was found to be quite unresponsive and he was not able to protect his airway judged by the nursing staff and for that reason he was intubated and placed on mechanical ventilator. Review of Systems ROS unobtainable: due to endotracheal tube Past Medical History Past Medical History: Asthma, Chest Pain / Angina, Heart Failure, COPD, CVA/TIA , Diabetes Mellitus, GERD/Reflux, Hyperlipidemia, Hypertension, Memory Impairment, Myocardial Infarction ([place]), Musculoskeletal Disorder, Osteoarthritis (OA), Pneumonia, Seizure Disorder, Thyroid Disorder Additional Past Medical History / Comment(s): Morbid obesity, coronary artery disease, history of CVA back in 2001 with residual left-sided hemiplegia and the patient is wheelchair-bound, the referral neuropathy, insulin pump for blood sugar control, hiatal hernia, chronic constipation, congestion heart failure, bronchial asthma, hyperlipidemia, hypertension, impaired hearing, seizure disorder, hypothyroidism Last Myocardial Infarction Date:: 2003 History of Any Multi-Drug Resistant Organisms: None Reported Past Surgical History: Appendectomy, Cholecystectomy Additional Past Surgical History / Comment(s): right elbow, knee, and wrist. RIGHT CARPAL TUNNEL SURGERY Past Anesthesia/Blood Transfusion Reactions: Postoperative Nausea & Vomiting ( PONV) Smoking Status: Never smoker - Past Family History Father Family Medical History: Coronary Artery Disease (CAD), CVA/TIA, Diabetes Mellitus, Hyperlipidemia, Myocardial Infarction ([place]), Seizure Disorder Mother Family Medical History: Diabetes Mellitus, Fibromyalgia Brother(s) Family Medical History: Hyperlipidemia Medications and Allergies Home Medications Medication Instructions Recorded Confirmed Type Albuterol Sulfate [Ventolin HFA] 2 puff INHALATION RT-QID 03/03/14 01/18/18 History Budesonide [Pulmicort] 0.5 mg INHALATION RT-BID 03/03/14 01/18/18 History Budesonide/Formoterol Fumarate 2 puff INHALATION RT-BID 03/03/14 01/18/18 History [Symbicort 80-4.5 Mcg Inhaler] Doxazosin [Cardura] 1 mg PO DAILY 03/03/14 01/18/18 History Ferrous Sulfate [Feosol] 325 mg PO DAILY 03/03/14 01/18/18 History Losartan Potassium [Cozaar] 50 mg PO DAILY 03/03/14 01/18/18 History Methocarbamol [Robaxin] 500 mg PO TID 03/03/14 01/18/18 History Montelukast [Singulair] 10 mg PO HS 03/03/14 01/18/18 History Ranitidine HCl [Zantac] 150 mg PO BID 03/03/14 01/18/18 History Levothyroxine Sodium [Synthroid] 50 mcg PO DAILY 12/19/14 01/18/18 History Theophylline 12 Hour [Pedro Luis-Dur] 300 mg PO BID 12/19/14 01/18/18 History Atorvastatin [Lipitor] 40 mg PO DAILY 12/04/15 01/18/18 History Metoclopramide [Reglan] 5 mg PO DAILY 12/04/15 01/18/18 History predniSONE 10 mg PO DAILY 12/04/15 01/18/18 History Fenofibrate [Lofibra] 160 mg PO DAILY 05/20/16 01/18/18 History Omeprazole 40 mg PO BID 05/20/16 01/18/18 History Ipratropium-Albuterol Nebulize 3 ml INHALATION RT-QID #120 06/08/16 01/18/18 Rx [Duoneb 0.5 mg-3 mg/3 ml Soln] ampul.neb Ergocalciferol (Vitamin D2) 50,000 unit PO TH 11/28/16 01/18/18 History [Vitamin D2] Aspirin 325 mg PO DAILY 07/28/17 01/18/18 History Insulin Aspart (For Pump) [NovoLOG 480 unit SQ-PUMP CONTINUOUS 07/28/17 History (For Pump)] Sertraline [Zoloft] 25 mg PO DAILY 07/28/17 01/18/18 History Diastat 5mg-7.5mg-10mg Rectal Kit 1 dose RECTAL ONCE PRN 01/18/18 01/18/18 History Divalproex ER [Depakote ER] 1,000 mg PO DAILY 01/18/18 01/18/18 History Divalproex Sodium [Depakote ER] 250 mg PO DAILY 01/18/18 01/18/18 History Nitroglycerin Sl Tabs [Nitrostat] 0.4 mg SUBLINGUAL Q5M PRN 01/18/18 01/18/18 History Pioglitazone [Actos] 15 mg PO DAILY 01/18/18 01/18/18 History Potassium Chloride ER [K-Dur 20] 20 meq PO DAILY 01/18/18 01/18/18 History Valproic Acid [Depakene] 250 mg PO BID 01/18/18 01/18/18 History levETIRAcetam [Keppra] 500 mg PO TID 01/18/18 01/18/18 History traMADol HCl [Ultram] 50 mg PO TID 01/18/18 01/18/18 History Allergies Allergy/AdvReac Type Severity Reaction Status Date / Time carbamazepine [From Tegretol] Allergy Rash/Hives Verified 01/18/18 09:09 fluticasone propionate Allergy Rash/Hives Verified 01/18/18 09:09 [From Advair Diskus] insulin glulisine Allergy Unknown Verified 01/18/18 09:09 [From Apidra] insulin lispro [From Humalog] Allergy Unknown Verified 01/18/18 09:09 lactose Allergy Rash/Hives Verified 01/18/18 09:09 pork derived (porcine) Allergy Rash/Hives Verified 01/18/18 09:09 prochlorperazine edisylate Allergy Rash/Hives Verified 01/18/18 09:09 [From Compazine] prochlorperazine maleate Allergy Rash/Hives Verified 01/18/18 09:09 [From Compazine] salmeterol xinafoate Allergy Rash/Hives Verified 01/18/18 09:09 [From Advair Diskus] sulfamethoxazole Allergy Rash/Hives Verified 01/18/18 09:09 [From Bactrim] trimethoprim [From Bactrim] Allergy Rash/Hives Verified 01/18/18 09:09 Physical Exam Vitals: Vital Signs Temp Pulse Pulse Resp BP BP Pulse Ox 01/19/18 06:30 89 29 H 90/53 100 01/19/18 06:15 91 24 79/50 100 01/19/18 06:00 96 22 86/48 100 01/19/18 05:45 99 24 92/58 99 01/19/18 05:30 101 H 31 H 92/58 100 01/19/18 05:15 105 H 30 H 95/54 99 01/19/18 05:10 105 H 29 H 95/54 98 01/19/18 05:00 109 H 30 H 97/55 98 01/19/18 04:30 117 H 33 H 98/57 99 01/19/18 04:20 122 H 35 H 154/67 98 01/19/18 04:00 103.2 F H 118 H 124 H 20 111/58 100 01/19/18 03:50 120 H 24 110/56 100 01/19/18 03:40 111 H 29 H 198/94 80 L 01/19/18 03:37 118 H 36 H 198/94 100 01/19/18 03:20 105.5 F H 124 H 40 H 165/81 96 01/19/18 00:00 97.2 F L 115 H 18 170/86 95 01/18/18 20:43 104 H 01/18/18 20:29 100 01/18/18 20:00 97.0 F L 96 18 145/65 99 01/18/18 16:39 97.1 F L 94 16 132/60 99 01/18/18 16:13 100 F H 98 20 123/63 98 01/18/18 14:21 109 H 01/18/18 14:13 105 H 01/18/18 14:02 100.1 F H 101 H 22 143/66 98 01/18/18 11:14 100.7 F H 121 H 20 145/63 97 01/18/18 10:36 117 H 22 146/70 97 01/18/18 10:11 101.9 F H 126 H 24 154/66 97 01/18/18 09:31 103.6 F H 133 H 22 189/79 97 01/18/18 08:15 103.8 F H 125 H 24 175/102 95 Intake and Output 01/18/18 01/19/18 01/19/18 22:59 06:59 14:59 Intake Total 75 2231.336 Output Total 202 31 Balance -127 2200.336 Intake: IV 75 2175 ACETAMINOPHEN IV (For NPO 100 ) 1,000 mg In Empty Bag 1 bag @ 400 mls/hr IVPB ONCE STA Rx#:[id number] Sodium Chloride 0.9% 1, 75 75 000 ml @ 75 mls/hr IV . [id number] ONE Rx#:[id number] Sodium Chloride 0.9% 2, 2000 000 ml @ 999 mls/hr IV . Q2H1M ONE Rx#:[id number] Intake, IV Titration 56.336 Amount Propofol 1,000 mg In 56.336 Empty Bag 1 bag @ Titrate IV .Q0M GINNY Rx#: [id number] Output: Urine 31 Other: Voiding Method Urinal Indwelling Catheter Diaper Incontinent # Voids 1 1 Weight 125.8 kg Obese, comfortable sedated on a mechanical ventilator. Nonacute distress. Head exam was generally normal. There was no scleral icterus or corneal arcus. Mucous membranes were moist. Neck was supple and without jugular venous distension, thyromegaly, or carotid bruits. Carotids were easily palpable bilaterally. There was no adenopathy. The patient has a short neck and the patient has an orogastric and orotracheal tube are both of them are in place. No significant secretions through the orotracheal tube. Lungs were clear to auscultation and percussion, and with normal diaphragmatic excursion. No wheezes or rales were noted. Cardiac exam revealed the PMI to be normally situated and sized. The rhythm was regular and no extrasystoles were noted during several minutes of auscultation. The first and second heart sounds were normal and physiologic splitting of the second heart sound was noted. There were no murmurs, rubs, clicks, or gallops. Abdomen is obese and soft. Nontender and there is no direct tenderness hemoptysis or guarding. Organs cannot be a cardiac palpated. Examination of the extremities revealed easily palpable radial, femoral and pedal pulses. There was no cyanosis, clubbing or edema. Examination of the skin revealed no evidence of significant rashes, suspicious appearing nevi or other concerning lesions. Neurologically the patient is sedated. He grimaces to painful stimulation in all 4 extremities. Motor function cannot be accurately assessed at this point in time. Pupils are equal and reactive to light. They are sluggish to light reflex. There are 2 mm in size and symmetrical bilaterally. Results - Laboratory Findings CBC and BMP: 01/19/18 03:29 01/19/18 03:29 ABG ABG pH 7.34 (7.35-7.45) L 01/19/18 04:03 ABG pCO2 35 mmHg (35-45) 01/19/18 04:03 ABG pO2 >400 mmHg (83-108) H 01/19/18 04:03 ABG O2 Saturation 100.0 % (94-97) H 01/19/18 04:03 PT/INR, D-dimer PT 9.9 sec (9.0-12.0) 01/18/18 08:20 INR 1.0 (<1.2) 01/18/18 08:20 Abnormal lab findings: Abnormal Labs 01/18/18 01/18/18 01/18/18 08:20 08:20 08:20 WBC 11.1 H Plt Count Neutrophils # 9.6 H Lymphocytes # APTT 21.2 L ABG pH ABG pO2 ABG HCO3 ABG O2 Saturation Sodium 136 L Carbon Dioxide BUN 8 L Glucose 258 H POC Glucose (mg/dL) Hemoglobin A1c Plasma Lactic Acid Slick Calcium Urine Protein Urine Glucose (UA) Urine Ketones Urine Blood Urine RBC Urine Bacteria Hyaline Casts Urine Mucus 01/18/18 01/18/18 01/18/18 08:20 08:27 09:32 WBC Plt Count Neutrophils # Lymphocytes # APTT ABG pH ABG pO2 ABG HCO3 ABG O2 Saturation Sodium Carbon Dioxide BUN Glucose POC Glucose (mg/dL) 543 H Hemoglobin A1c Plasma Lactic Acid Slick 5.8 H* Calcium Urine Protein Urine Glucose (UA) 4+ H Urine Ketones 1+ H Urine Blood Urine RBC Urine Bacteria Hyaline Casts Urine Mucus 01/18/18 01/18/18 01/18/18 12:30 12:52 17:10 WBC Plt Count Neutrophils # Lymphocytes # APTT ABG pH ABG pO2 ABG HCO3 ABG O2 Saturation Sodium Carbon Dioxide BUN Glucose POC Glucose (mg/dL) 213 H 245 H Hemoglobin A1c Plasma Lactic Acid Slick 3.1 H* Calcium Urine Protein Urine Glucose (UA) Urine Ketones Urine Blood Urine RBC Urine Bacteria Hyaline Casts Urine Mucus 01/18/18 01/18/18 01/18/18 18:02 18:07 20:57 WBC Plt Count Neutrophils # Lymphocytes # APTT ABG pH ABG pO2 ABG HCO3 ABG O2 Saturation Sodium Carbon Dioxide BUN Glucose POC Glucose (mg/dL) 333 H Hemoglobin A1c 8.9 H Plasma Lactic Acid Slick 2.9 H* Calcium Urine Protein Urine Glucose (UA) Urine Ketones Urine Blood Urine RBC Urine Bacteria Hyaline Casts Urine Mucus 01/18/18 01/19/18 01/19/18 21:40 03:07 03:29 WBC Plt Count 114 L Neutrophils # Lymphocytes # 0.5 L APTT ABG pH ABG pO2 ABG HCO3 ABG O2 Saturation Sodium Carbon Dioxide BUN Glucose POC Glucose (mg/dL) 235 H Hemoglobin A1c Plasma Lactic Acid Slick 2.6 H* Calcium Urine Protein Urine Glucose (UA) Urine Ketones Urine Blood Urine RBC Urine Bacteria Hyaline Casts Urine Mucus 01/19/18 01/19/18 01/19/18 03:29 04:03 04:07 WBC Plt Count Neutrophils # Lymphocytes # APTT ABG pH 7.34 L ABG pO2 >400 H ABG HCO3 19 L ABG O2 Saturation 100.0 H Sodium 132 L Carbon Dioxide 18 L BUN 5 L Glucose 250 H POC Glucose (mg/dL) 294 H Hemoglobin A1c Plasma Lactic Acid Slick Calcium 8.2 L Urine Protein Urine Glucose (UA) Urine Ketones Urine Blood Urine RBC Urine Bacteria Hyaline Casts Urine Mucus 01/19/18 01/19/18 04:40 06:29 WBC Plt Count Neutrophils # Lymphocytes # APTT ABG pH ABG pO2 ABG HCO3 ABG O2 Saturation Sodium Carbon Dioxide BUN Glucose POC Glucose (mg/dL) 274 H Hemoglobin A1c Plasma Lactic Acid Slick Calcium Urine Protein 1+ H Urine Glucose (UA) 4+ H Urine Ketones 2+ H Urine Blood Small H Urine RBC 15 H Urine Bacteria Rare H Hyaline Casts 4 H Urine Mucus Rare H - Diagnostic Findings Chest x-ray: image reviewed Assessment and Plan Plan: Assessment 1 altered mentation with diminished level of consciousness and inability to protect airway. The patient is currently intubated on a mechanical ventilator. Exact cause for the altered mentation is not clear. Is very much likely the patient was profoundly septic and encephalopathic which led into further diminishment in the mental status and as such the patient was intubated and placed on mechanical ventilator for airway protection. CAT scan of the brain showed chronic atrophy. No seizure activity has been noted. No neck stiffness. No signs of meningitis at this point. 2 acute respiratory failure secondary to above. The patient was not hypoxic and they patient was intubated for airway protection due to his diminished level of consciousness and altered mentation. 3 acute febrile illness along with tachycardia and hypotension. The patient had a temperature of 105.5. Very much likely is septic event. I'm not sure that the patient has a right lung pneumonia knowing that the CAT scan of the abdomen and pelvis was done showed a large fat pad around the heart. There is no evidence of any infiltration or pneumonia at this point in time in the lung bases. Nevertheless aspiration is very much likely. The patient is currently on IV cefepime. The patient is hypotensive and currently on pressors. He received a total of 3 L of IV fluid upon arrival to the intensive care unit 4 obesity with a BMI 44.8 5 CVA with left-sided hemiplegia and the patient is a wheelchair-bound gentleman 6 diabetes mellitus maintained on insulin pump on outpatient basis currently off the insulin pump and the patient is on a NovoLog size scattered coverage 7 history of seizure disorder 8 hyperlipidemia 9 coronary artery disease 10 severe persistent bronchial asthma 11 hypothyroidism 12 impaired hearing Plan Continue IV fluids with 0.9 at 75 mL an hour. Obtain duque cultures. Cover this patient with a combination of IV cefepime and vancomycin. Monitor fever pattern and give Tylenol IV 1 g every 8 hours for temperature spikes. Continue pressors and gradually try to wean him off the pressors. Insert an art line catheter and triple lumen catheter. We'll need to repeat the CAT scan of the brain and at the same time obtain a CAT scan of the chest regarding the possibility of a pneumonia to explain the current presentation. Stop the Symbicort. Continue the DuoNeb's. Continued and epileptic medications including Depakote and Keppra. Hold Cozaar for now. Condition is critical. We 'll continue to follow make further recommendations based on his overall progress. An echocardiogram will also be needed to assess his LV function. He follows up with Dr. Patino on outpatient basis. His neurologist is from [facility]. He also sees Dr. Celis locally. Time with Patient: Greater than 30
[2018-01-19] MEDS ORDERED: VANCOMYCIN IV PER PHARMACY 1 EACH MISC MISCELLANE PRN (07:48)
[2018-01-19] MEDS ORDERED: RX INFO: IV CONTRAST WAS GIVEN 1 EACH MISC MISCELLANE PRN (07:51)
[2018-01-19] MEDS ORDERED: SYMBICORT 80-4.5 MCG INHALER INHALATION SCH (08:00)
[2018-01-19] MEDS ORDERED: PIOGLITAZONE 15 MG TAB PO SCH (09:00)
[2018-01-19] MEDS ORDERED: DIVALPROEX ER 250 MG TAB.ER.24H PO SCH (09:00)
[2018-01-19] MEDS ORDERED: LOSARTAN 50 MG TAB PO SCH (09:00)
[2018-01-19] MEDS ORDERED: THEOPHYLLINE 24 HOUR 300 MG CAP.ER.24H PO SCH (09:00)
[2018-01-19] MEDS: ASPIRIN 325 MG TAB PO SCH (09:04)
[2018-01-19] MEDS: CHLORHEXIDINE GLUCONATE 15 ML CUP MUCOUS MEM SCH ×2 (09:04→21:06)
[2018-01-19] MEDS: LEVOTHYROXINE 50 MCG TAB PO SCH (09:04)
[2018-01-19] MEDS: DIVALPROEX ER 500 MG TAB.ER.24H PO SCH ×2 (09:05→11:34)
[2018-01-19] MEDS: ATORVASTATIN 40 MG TAB PO SCH (09:05)
[2018-01-19] MEDS: ENOXAPARIN 40 MG/0.4 ML SYRINGE SQ SCH (09:06)
[2018-01-19] MEDS: FENOFIBRATE 160 MG TAB PO SCH (09:07)
[2018-01-19] MEDS: levETIRAcetam 500 MG TAB PO SCH (09:08)
--- NOTE | 2018-01-19 09:53 | PCN ---
PROCEDURE NOTE INSERTION OF A TRIPLE-LUMEN CATHETER: SITE OF INSERTION: Left IJ. PREOPERATIVE DIAGNOSIS: Acute respiratory failure. POSTOPERATIVE DIAGNOSIS: Acute respiratory failure. No bedside complication or bleeding. Chest x-rays to follow. ALWSON / BENNETT: [id number] /
--- NOTE | 2018-01-19 10:21 | CT ---
EXAMINATION TYPE: CT brain wo con DATE OF EXAM: 01/19/2018 COMPARISON: 01/18/2018 INDICATION: Altered mental status. DLP: 1123.3 mGycm, Automated exposure control for dose reduction was used. CONTRAST: None CT of the brain is performed utilizing 3 mm thick sections through the posterior fossa and 3 mm thick sections through the remaining calvarium. Study is not performed within 24 hours of arrival to the hospital. No abnormal hyperdensity is present to suggest an acute intracranial hemorrhage. No mass lesion is evident. No acute infarcts are evident. Minimal periventricular white matter ischemic type change may be prese nt, unchanged from comparison. Ventricles and sulci are appropriate for the patient age. Paranasal sinuses and mastoid air cells within the [id number] are clear. The patient appears intubated on the oracle database consultant images. IMPRESSIONS: 1. Minimal white matter changes likely chronic. 2. No acute intracranial process.
[2018-01-19] MEDS: METOCLOPRAMIDE 5 MG TAB PO SCH (10:22)
[2018-01-19] MEDS: CEFEPIME 2 GM in SODIUM CHLORIDE 0.9% 50 ML IVPB SCH (10:28)
[2018-01-19] MEDS: POTASSIUM CHLORIDE ER 20 MEQ TAB.ER PO SCH (10:31)
[2018-01-19] MEDS: SERTRALINE 25 MG TAB PO SCH (10:32)
--- NOTE | 2018-01-19 10:40 | CT ---
EXAMINATION TYPE: CT chest w con DATE OF EXAM: 01/19/2018 COMPARISON: 12/04/2015 HISTORY: History of Mass CT DLP: 469.7 mGycm, Automated exposure control for dose reduction was used. CONTRAST: Performed injected with 100 mL of Isovue 300. TECHNIQUE: Axial images were obtained at 5 mm thick sections. Reconstructed images are reviewed on Nuve computer in the coronal plane. FINDINGS: Patient. Tip of the endotracheal tube is present. Nasogastric tube transverses the thorax a nd has the tip in the stomach. Portion of the thyroid visualized is normal. Bilateral dependent basilar compressive atelectasis is present. No enlarged mediastinal or hilar adenopathy is evident. Abundant mediastinal fat is present. The asce nding aorta diameter at the level of the main pulmonary artery is 3.8 cm. The main pulmonary artery diameter at the bifurcation is 3.[address] sections are obtained through the upper abdomen. Abdomen is essentially unremarkable. Note is made of fatty infiltration the pancreas. Old Right rib fractures are present on the lateral right ribs. IMPRESSIONS: 1. No discrete mass. 2. Mediastinum appears prominent likely related to mediastinal fat. No underlying mass is identified. 3. Mild compressive atelectasis dependent portions of the lungs bilaterally.
--- NOTE | 2018-01-19 11:02 | ECHOF ---
Referral Reason:hypotension MEASUREMENTS -------- HEIGHT: 165.1 cm WEIGHT: 125.6 kg BP: IVSd: 1.5 cm (0.6 - 1.1) LVIDd: 3.3 cm (3.9 - 5.3) LVPWd: 1.2 cm (0.6 - 1.1) IVSs: 1.9 cm LVIDs: 2.4 cm LVPWs: 1.3 cm EDV(Teich): 45 ml ESV(Teich): 20 ml EF(Teich): 56 % %FS: 28 % SV(Teich): 25 ml MV E Erick: 0.47 m/s MV DecT: 236 ms MV A Erick: 0.72 m/s MV E/A Ratio: 0.65 RAP: 5.00 mmHg RVSP: 16.77 mmHg FINDINGS -------- Sinus rhythm. Morbid Obesity This was a techncally difficult study with suboptimal views, , Lumason utilized for enhancement of im ages. The left ventricular size is normal. There is moderate concentric left ventricular hypertrophy. O verall left ventricular systolic function is low-normal with, an EF between 50 - 55 %. The RV was not well visualized. The left atrium was not well visualized. The right atrium was not well visualized. The aortic valve was not well visualized. The mitral valve was not well visualized. The tricuspid valve was not well visualized. The pulmonic valve was not well visualized. CONCLUSIONS -------- 1. Morbid Obesity 2. This was a techncally difficult study with suboptimal views, , Lumason utilized for enhancement of images. 3. The left ventricular size is normal. 4. There is moderate concentric left ventricular hypertrophy. 5. Overall left ventricular systolic function is low-normal with, an EF between 50 - 55 %. 6. The RV was not well visualized. 7. The left atrium was not well visualized. 8. The right atrium was not well visualized. 9. The aortic valve was not well visualized. 10. The mitral valve was not well visualized. 11. The tricuspid valve was not well visualized. 12. The pulmonic valve was not well visualized. SEED PELLETER: Lovely Hidalgo RDCS
[2018-01-19 11:26] LABS: Glucose,Whole Blood 288 mg/dL (75-99)
[2018-01-19] MEDS: VANCOMYCIN 2,000 MG in SODIUM CHLORIDE 0.9% 500 ML IVPB SCH ×2 (11:26→21:30)
[2018-01-19] MEDS: METHOCARBAMOL 500 MG TAB PO SCH (11:34)
[2018-01-19] MEDS: DOXAZOSIN 1 MG TAB PO SCH (11:34)
[2018-01-19] MEDS: VALPROIC ACID ORAL SOLN 250 MG/5 ML CUP PO SCH (11:35)
[2018-01-19] MEDS: traMADol 50 MG TAB PO SCH (11:35)
--- NOTE | 2018-01-19 11:38 | PCN ---
PROCEDURE NOTE PREOPERATIVE DIAGNOSIS: Respiratory failure. POSTOPERATIVE DIAGNOSIS: Respiratory failure. ARTERIAL LINE PLACEMENT: Indications: Hemodynamic monitoring. A time-out was completed verifying correct patient, procedure, site, positioning, and implant(s) or special equipment if applicable. Derrek's test was performed to ensure adequate perfusion. The patient's left wrist was prepped and draped in sterile fashion. 1% Lidocaine was used to anesthetize the area. An 18G Arrow arterial line was introduced into the radial artery. The catheter was threaded over the guide wire and the needle was removed with appropriate pulsatile blood return. Blood loss was minimal. The catheter was then sutured in place to the skin and a sterile dressing applied. Perfusion to the extremity distal to the point of catheter insertion was checked and found to be adequate. The patient tolerated the procedure well and there were no complications. No bedside complication or bleeding. MMODL / IJN: [id number] /
[2018-01-19] MEDS ORDERED: VALPROATE SODIUM 250 MG in SODIUM CHLORIDE 0.9% 50 ML IVPB SCH (12:00)
[2018-01-19 12:42] LABS: Glucose,Whole Blood 269 mg/dL (75-99)
[2018-01-19] MEDS: PANTOPRAZOLE 40 MG/10 ML VIAL IVP SCH ×2 (12:53→21:08)
[2018-01-19] MEDS: INSULIN ASPART 100 UNIT/ML 1 ML 10 ML VIAL SQ SCH ×3 (13:12→21:05)
[2018-01-19] MEDS ORDERED: levETIRAcetam ORAL SOLN 500 MG/5 ML CUP PO SCH (16:00)
[2018-01-19 16:56] LABS: Glucose,Whole Blood 259 mg/dL (75-99)
[2018-01-19] MEDS: PIPERACILLIN-TAZOBACTAM 3.375 GM in DEXTROSE/WATER 1 50ML.BAG IVPB SCH (17:03)
--- NOTE | 2018-01-19 18:23 | CONS ---
CONSULTATION DATE OF SERVICE: 01/19/2018 REASON FOR CONSULTATION: Pneumonia. Antibiotic recommendations. HISTORY OF PRESENT ILLNESS: The patient is a 52-year-old male presenting to the ER at [facility] on 01/18/2018 in the morning with the chief complaints of mental status changes and slurred speech. Apparently the patient's symptoms started when he woke up about 7:30 in the morning. His noticed that the patient was getting out of bed and he stumbled out of the bed and was confused. Patient does have a previous history of CVA with residual left-sided deficit, diabetes and hypertension. With these symptoms, the patient was brought into the [facility] ER, where he had a CT of the brain which was negative for any acute intracranial hemorrhage or midline shift. The patient also had a CT of abdomen and pelvis completed which shows no acute intraabdominal process; redemonstration of hepatic steatosis, pancreatic atrophy and small left renal cyst. The patient subsequently was on the floor. Apparently the patient did have respiratory distress overnight. The patient did spike a fever of 105 degrees Fahrenheit. The patient is tachycardic with heart rates in the 130s and tachypneic, unresponsive to verbal stimuli. No clear history of any seizure activity. The patient subsequently was transferred to the ICU and ended up getting intubated. RN mentioned that at the time of intubation no significant purulent secretions through the ET tube were noticed. A sputum culture has been sent. The patient was started on cefepime and vancomycin. Infectious Disease was consulted for further recommendations regarding antibiotic therapy. Most of this information has been obtained from thorough review of the chart and talking to the nursing staff, as the patient is currently on the vent, sedated, and unable to provide any history, and no family member is at the bedside. REVIEW OF SYSTEMS: Review of systems could not be reliably obtained. The positive points have been mentioned in HPI. PAST MEDICAL HISTORY: 1. CVA, TIA. 2. Diabetes mellitus. 3. Gastroesophageal reflux disease. 4. Hypertension. 5. Hyperlipidemia. 6. MA. 7. Osteoarthritis. 8. Pneumonia. 9. Seizure disorder. 10.Hypothyroidism. 11.Heart failure. PAST SURGICAL HISTORY: 1. Appendectomy. 2. Cholecystectomy. 3. Right carpal tunnel surgery. 4. Right elbow and knee surgery. SOCIAL HISTORY: No history of smoking, drinking or drug use. FAMILY HISTORY: Father with history of CVA, diabetes mellitus, seizure disorder. Mother with history of fibromyalgia and diabetes. Brother with hyperlipidemia. ALLERGIES: 1. CARBAMAZEPINE. 2. FLUTICASONE. 3. INSULIN. CURRENT MEDICATIONS: 1. Tylenol. 2. DuoNeb. 3. Aspirin. 4. Lipitor. 5. Cardura. 6. Lovenox. 7. Lofibra. 8. NovoLog. 9. Synthroid. 10.Reglan. 11.Narcan. 12.Nitrostat. 13.Protonix. 14.Cefepime. 15.Propofol. 16.Vancomycin, Pharmacy to dose. PHYSICAL EXAMINATION: Blood pressure is 137/61 with a pulse of 102, temperature of 101.5. T-max is 105.5. He is 100% on 40% FiO2. General description is a middle-aged male lying in bed in no distress. HEENT examination shows no pallor or scleral icterus. Patient is orally intubated, limited examination of oral cavity. NECK: Trachea is central. No thyromegaly. LUNGS: Unlabored breathing. Decreased breath sounds at the bases. No wheeze or crackle. HEART: S1, S2. Regular rate and rhythm. ABDOMEN: Soft. No tenderness. No guarding or rigidity noted. EXTREMITIES: No edema of the feet. SKIN EXAMINATION: No rash or mass palpable. Neurologically the patient is currently sedated on the vent. No neck rigidity was noticed. LABS: Hemoglobin 13.1, white count 5.5. Admission white count was 11.1. BUN of 5, creatinine 0.70. Electrolytes have been normal. Urine has been negative. The patient did have a CT of the chest completed which shows no discrete mass; mediastinum appears prominent, likely related to mediastinal fat; no underlying mass is identified; mild compressive atelectasis in dependent portions of the lungs bilaterally. DIAGNOSTIC IMPRESSION AND PLAN: Patient admitted to hospital with sepsis in a patient who did have a fever of 101.5 degrees Fahrenheit in a patient who subsequently went into respiratory distress and ended up getting intubated. The patient did have a CT of the chest completed which showed no discrete mass; mediastinum appears prominent, likely related to mediastinal fat. No mass identified and no significant consolidation. A CT of abdomen and pelvis was negative for any acute process as well. His UA has been negative. Patient currently with no cellulitis or any joint swelling. In view of significant mental status changes with a fever and no clear focus, underlying infection needs to be ruled out as well. PLAN: 1. Will request Anesthesia to do a lumbar puncture with CSF sent for glucose, protein, cell count differential. 2. Will check an influenza A and B PCR. 3. Will keep the patient on vancomycin; however, switch cefepime to Zosyn for possible aspiration pneumonitis. 4. Will follow up on clinical condition and culture to further adjust medication if needed. Thank you for this consultation. Will follow this patient along with you. MMODL / IJN: [id number] /
--- NOTE | 2018-01-19 18:32 | EEG ---
ELECTROENCEPHALOGRAM REPORT DATE OF SERVICE: 01/19/2018. REASON FOR TESTING: Altered mental status. DESCRIPTION OF THE PROCEDURE: This EEG was performed using a 21 channel digital electroencephalograph, following international 10-20 system. The patient's propofol was held for this test. DESCRIPTION OF THE RECORDING: From the beginning of the tracing, and with patient's eyes closed, the background rhythm was mostly consisting of 6-7 Hz theta frequency in the posterior occipital leads. No obvious asymmetry is seen. Occasional muscle artifacts are seen. Photic stimulation was performed with no driving response seen. No pathological waves were elicited. Occasional lead artifacts are noted. INTERPRETATION: This awake EEG is abnormal due to the presence of generalized slowing of the background rhythm, mostly in the theta range. This is consistent with mild encephalopathy. No epileptiform discharges were seen. The absence of epileptiform discharges does not rule out the diagnosis of epilepsy; therefore, clinical correlation is recommended. MMMOISES / IJLisa: [id number] /
[2018-01-19 20:34] LABS: Glucose,Whole Blood 280 mg/dL (75-99)
[2018-01-19] MEDS ORDERED: VALPROATE SODIUM 1,000 MG in SODIUM CHLORIDE 0.9% 50 ML IVPB SCH (21:00)
--- NOTE | 2018-01-19 21:02 | CONS ---
CONSULTATION DATE OF CONSULTATION: 01/19/2018. CHIEF COMPLAINT: Altered mental status. HISTORY OF PRESENT ILLNESS: Mr. Diaz is a 52-year-old male, who is being evaluated by the neurology service per the request of Dr. King for the above-mentioned complaints. The patient was brought into [facility] Emergency Room after he had a sudden onset of altered mental status. The patient's states that he fell out of bed and was having difficulty breathing. She did not witness any seizure like activity but she did say that when they helped him back to the bed, he did have urinary incontinence. The patient does have a history of seizure disorder and is on Keppra 1500 mg b.i.d. and Depakote ER 1250 mg daily. In the emergency room, he was found to have a fever with a temperature of 101.9. His CBC showed no leukocytosis. He was initially admitted to the medical floor but was later found unresponsive and was intubated and transferred to the intensive care unit. An EEG was done today with propofol being held during the testing. I did review the study which showed evidence of mild encephalopathy with no epileptiform discharges seen. His Depakote level was found to be subtherapeutic at 36.8. A CT scan of the brain was done, which showed small-vessel ischemic changes with no acute abnormalities seen. His comprehensive metabolic profile showed mild hyponatremia at 132 and hyperglycemia at 250. At the time of my evaluation, the patient remained in the intensive care unit and is intubated and sedated. The patient does have a history of ischemic stroke with residual left hemiparesis more severe in the left lower extremity then the left upper extremity. No seizure-like activity has been reported since his admission. PAST MEDICAL HISTORY: Stroke with residual left hemiparesis. Seizure disorder, heart failure, chronic obstructive pulmonary disease, diabetes, gastroesophageal reflux disease, dyslipidemia, hypertension, arthritis, peripheral polyneuropathy, hiatal hernia, history of appendectomy, orthopedic surgeries, cholecystectomy. SOCIAL HISTORY: There is no history of any alcohol, tobacco or drug use. FAMILY HISTORY: Positive for heart disease, diabetes, seizure disorder, and strokes. HOME MEDICATIONS: Reviewed in the chart. ALLERGIES: TEGRETOL, APIDRA, LISPRO, LACTOSE, COMPAZINE, ADVAIR, BACTRIM, SULFA DRUGS, AND PROSEEN PRODUCTS. REVIEW OF SYSTEMS: Unable to obtain, as the patient is intubated and sedated. PHYSICAL EXAM: Vital signs show a temperature of 101.9, pulse 126, respiration 24, blood pressure 140/66. GENERAL APPEARANCE: The patient is an obese male, who is intubated and sedated. HEENT: Normocephalic, atraumatic, no obvious facial asymmetry is seen. Endotracheal tube is intact. Neck is supple with no masses felt. Cardiovascular: Tachycardic rate with a normal rhythm. ABDOMEN: Obese, nondistended. NEUROLOGICAL: The patient is sedated. No obvious facial asymmetry is seen. He does not respond to any verbal or painful stimuli. Plantar reflex showed Babinski on the left side. Brainstem reflexes are intact. No seizure-like activity is seen. IMPRESSION: 1. Altered mental status. 2. Seizure disorder. 3. Subtherapeutic Depakote levels. 4. Acute encephalopathy, likely infectious. 5. Fever. 6. Respiratory failure. RECOMMENDATIONS: The patient did have a sudden onset of altered mental status at home as mentioned above. He has since developed respiratory failure and is dependent on mechanical ventilation. Pulmonology is following the patient and there appears to be no evidence of any pneumonia at this time. The patient may have suffered another ischemic stroke which was not visualized by the initial CT scan of the brain. I will order a repeat CT scan of the brain to be done in the morning. The patient may have also suffered a breakthrough seizure given his subtherapeutic Depakote level. And also given the fact that he takes Ultram at home. With his history of seizures, Ultram is contraindicated and this should be discontinued. I will adjust his Depakote and Keppra doses. I will change his current Keppra dosing from 1000 mg IV every 8 hours to 1500 mg IV every 12 hours. I will also change his Depakote IV from 1250 mg daily to 500 mg every 8 hours. A repeat Depakote level will be ordered for the morning. Also in the differential diagnosis, the patient's altered mental status and fever on presentation is somewhat concerning for intracranial infections. Infectious disease did evaluate the patient and a lumbar puncture was recommended, but the procedure was refused by the family. I do recommend antibiotic therapy to cover bacterial meningitis and possible herpes encephalitis. Infectious Disease is following the patient. Prognosis is guarded. I will continue to follow with you. Further recommendations to follow. Thank you for allowing me to participate in the care of your patient. If you have any questions, please feel free to contact me. MMODL / IJN: [id number] /
[2018-01-19] MEDS: levETIRAcetam ORAL SOLN 500 MG/5 ML CUP PO SCH (21:06)
[2018-01-19] MEDS: MONTELUKAST 10 MG TAB PO SCH (21:08)
[2018-01-19] MEDS: SODIUM CHLORIDE 0.9% 1,000 ML IV SCH (22:35)
[2018-01-19 23:51] LABS: Glucose,Whole Blood 255 mg/dL (75-99)
[2018-01-20] MEDS: VALPROATE SODIUM 500 MG in SODIUM CHLORIDE 0.9% 50 ML IVPB SCH ×3 (00:52→16:32)
[2018-01-20] MEDS: PIPERACILLIN-TAZOBACTAM 3.375 GM in DEXTROSE/WATER 1 50ML.BAG IVPB SCH ×3 (00:52→16:32)
[2018-01-20] MEDS: INSULIN ASPART 100 UNIT/ML 1 ML 10 ML VIAL SQ SCH ×6 (00:52→19:53)
[2018-01-20] MEDS: PROPOFOL 1,000 MG in EMPTY BAG 1 BAG IV SCH ×3 (01:41→06:48)
[2018-01-20 04:32] LABS: Glucose,Whole Blood 222 mg/dL (75-99)
--- NOTE | 2018-01-20 04:32 | PN ---
PROGRESS NOTE DATE OF SERVICE: 01/19/2018 PRESENTING COMPLAINT: Septic. INTERVAL HISTORY: The patient has multiple medical problems, admitted with a septic picture. The patient became less responsive. Initially was being treated for pneumonia and was on antibiotics for same. Subsequently transferred to the ICU and was intubated. Infectious Disease saw the patient and did change antibiotics. They also ordered a lumbar puncture. CT scan of the chest was not too exciting in terms of pneumonia though aspiration pneumonia is still a consideration. REVIEW OF SYSTEMS: Cannot be obtained as patient is intubated. CURRENT MEDICATIONS: Reviewed that include DuoNeb, Lipitor, Lovenox, Keppra, Synthroid, Levophed, IV Zosyn, IV propofol, IV vancomycin. PHYSICAL EXAMINATION: VITAL SIGNS: Temperature 101.5, pulse 101, respiration 20, blood pressure 115/53. GENERAL APPEARANCE: Lying in bed, intubated. EYES: Pupils are equal. Conjunctivae normal. HEENT: External appearance of nose and ears normal. Oral cavity, endotracheal tube in place. Very hard of hearing. NECK: JVD unable to assess. Short, thick. RESPIRATORY: Effort increased. LUNGS: Distant breath sounds. CARDIOVASCULAR: 1st and 2nd sounds. No edema. ABDOMEN: Distended, soft. Liver and spleen not palpable. PSYCHIATRY: Patient is intubated, unable to assess. NEUROLOGICAL: The patient has chronic left arm weakness 4/5 left leg weakness is 2/5 with decreased sensation in the leg. INVESTIGATIONS: White count 5.5, hemoglobin 13.1, potassium 4, BUN 5, creatinine 0.70. CT scan of the chest unremarkable. 2D echocardiogram shows preserved LV function. EEG shows encephalopathic changes. ASSESSMENT: 1. Severe sepsis, pneumonia was suspected but other causes need to be ruled out. Lumbar puncture has been added, sepsis is slow to respond. 2. Moderate persistent asthma with acute exacerbation. 3. Acute hypoxic respiratory failure. The patient is now requiring ventilator support. 4. Left-sided weakness from the leg from a prior stroke. 5. Diabetes mellitus type 2, chronically on insulin pump, currently uncontrolled with hypoglycemia. The patient is ALLERGIC TO MULTIPLE TYPE OF INSULINS including pork products. 6. Gastroesophageal reflux disease. 7. Hyperlipidemia. 8. Essential hypertension. 9. Memory impairment chronic. 10.Primary osteoarthritis. 11.Hypothyroid. 12.Peripheral neuropathy. PLAN: Continue with current medication and treatment plan including broad spectrum, antibiotics. LP was ordered by ID. Care was discussed with the patient's daughter at the bedside. Prognosis is guarded. Follow with consultants. Patient remains critically ill in the ICU. MMGILLESL / LATOYAN: [id number] /
[2018-01-20 04:58] LABS: Basophils % (A) 0 %; Eosinophils # (A) 0.1 k/uL (0-0.7); Eosinophils % (A) 2 %; HCT 37.7 % (39.0-53.0); HGB 12.2 gm/dL (13.0-17.5); Lymphocytes # (A) 0.6 k/uL (1.0-4.8); Lymphocytes % (A) 8 %; MCH 31.5 pg (25.0-35.0); MCHC 32.2 g/dL (31.0-37.0); MCV 97.7 fL (80.0-100.0); Mean Platelet Volume 7.2; Monocytes # (A) 0.4 k/uL (0-1.0); Monocytes % (A) 5 %; Neutrophils # (A) 6.4 k/uL (1.3-7.7); Neutrophils % (A) 81 %; Platelet Count 105 k/uL (150-450); RBC 3.86 m/uL (4.30-5.90); RDW 15.2 % (11.5-15.5); WBC 7.9 k/uL (3.8-10.6)
[2018-01-20 05:13] LABS: ABG Base Excess -5.4 mmol/L; ABG HCO3 19 mmol/L (21-25); ABG Oxygen Saturation 99.7 % (94-97); ABG PCO2 30 mmHg (35-45); ABG PH 7.42 (7.35-7.45); ABG PO2 148 mmHg (83-108); ABG TCO2 20 mmol/L (19-24)
[2018-01-20 05:17] LABS: Anion Gap 8 mmol/L; Blood Urea Nitrogen 9 mg/dL (9-20); Calcium 7.6 mg/dL (8.4-10.2); Carbon Dioxide 20 mmol/L (22-30); Chloride 105 mmol/L (98-107); Glucose 211 mg/dL (74-99); Magnesium 1.9 mg/dL (1.6-2.3); Phosphorus 3.1 mg/dL (2.5-4.5); Potassium 4.1 mmol/L (3.5-5.1); Sodium 133 mmol/L (137-145)
[2018-01-20] MEDS ORDERED: Magnesium Replacement Protocol 1 EACH MISC MISCELLANE PRN (05:37)
[2018-01-20] MEDS: MAGNESIUM SULFATE-D5W PMX 1 GM in DEXTROSE/WATER 1 100ML.BAG IVPB SCH ×2 (06:16→08:40)
[2018-01-20] MEDS: LEVOTHYROXINE 50 MCG TAB PO SCH (06:17)
--- NOTE | 2018-01-20 07:15 | XR ---
EXAMINATION TYPE: XR chest 1V portable DATE OF EXAM: 01/20/2018 COMPARISON: 01/19/2018 HISTORY: Ventilatory dependent respiratory failure. Follow-up exam. TECHNIQUE: Single frontal view of the chest is obtained. FINDINGS: There is continued slight elevation of right hemidiaphragm likely secondary to right basil ar atelectasis. There is also rightward mediastinal shift partially due to patient rotation but also possibly due to volume loss from right basilar atelectasis. Trace right pleural effusion remains. The re is similar positioning of the enteric tube and endotracheal tube. New left-sided internal jugular central venous catheter terminates in the superior vena cava region. Again there is a widened mediast inum, likely secondary to patient rotation. No discrete pneumothorax. IMPRESSION: Redemonstration of right basilar airspace disease, likely atelectasis with secondary sig ns of volume loss and trace right pleural effusion.
[2018-01-20] MEDS: IPRATROPIUM-ALBUTEROL 3 ML NEB INHALATION SCH ×4 (07:49→19:51)
[2018-01-20] MEDS: ENOXAPARIN 40 MG/0.4 ML SYRINGE SQ SCH (08:40)
[2018-01-20] MEDS: DOXAZOSIN 1 MG TAB PO SCH (08:42)
[2018-01-20] MEDS: FENOFIBRATE 160 MG TAB PO SCH (08:42)
[2018-01-20] MEDS: ASPIRIN 325 MG TAB PO SCH (08:42)
[2018-01-20] MEDS: ATORVASTATIN 40 MG TAB PO SCH (08:42)
[2018-01-20] MEDS: levETIRAcetam ORAL SOLN 500 MG/5 ML CUP PO SCH ×2 (08:42→19:56)
[2018-01-20] MEDS: CHLORHEXIDINE GLUCONATE 15 ML CUP MUCOUS MEM SCH ×2 (08:42→19:54)
[2018-01-20] MEDS: PANTOPRAZOLE 40 MG/10 ML VIAL IVP SCH ×2 (08:43→19:54)
[2018-01-20] MEDS: SERTRALINE 25 MG TAB PO SCH (08:43)
[2018-01-20] MEDS: METOCLOPRAMIDE 5 MG TAB PO SCH (08:43)
[2018-01-20] MEDS: POTASSIUM CHLORIDE ER 20 MEQ TAB.ER PO SCH (09:01)
[2018-01-20 09:09] LABS: Glucose,Whole Blood 236 mg/dL (75-99)
--- NOTE | 2018-01-20 09:59 | P.PN ---
Subjective Progress Note Date: 01/20/18 This is a 52-year-old morbidly obese male patient with history of a CVA approximately 18 years ago and the patient has been wheelchair bound since then with left-sided hemiplegia and weakness related to the stroke. The patient also has history of coronary artery disease, history of seizure disorder maintained on multiple antiepileptic medication, history of hypertension and hyperlipidemia and congestion heart failure. The patient is also hard of hearing. Apparently this patient has been having symptoms of cough and congestion and shortness of breath and he had contacted his primary care physician and he was given antibiotics on outpatient basis. Subsequently his condition got worse and he was having fever with temperatures of 101.9 and he was also becoming more lethargic. For that reason the patient was brought into the emergency department. Initial chest x-ray on admission showed low lung volumes and cardiomegaly and right basilar infiltration. He did complain of abdominal pain. For that reason a CAT scan of the abdomen was done that showed no acute intra-abdominal process and there was evidence of hepatic steatosis and pancreatic atrophy and small left renal cyst. In fact, the lung bases did not show any significant abnormalities. The CAT scan of the brain that was done in emergency department showed no evidence of any acute intracranial hemorrhage or midline shift. There was stable moderate diffuse age-related atrophy and was treated. Overnight, the patient's condition got worse. The patient started having high-grade fever with a temperature of 105. He was also tachycardic, sinus tachycardia with a heart rate of 1:30. He was also found to be tachypneic with respiration the mid 40s and he was unresponsive to verbal stimulation. Note that he did not have any seizure activity at least no seizure activity noted by the nursing staff or by the family. At that point the patient was considered to be profoundly septic. He was intubated and was brought to the intensive care unit for further management. Overnight, the patient received a total of 3 L and he was also started on pressors and currently is on norepinephrine infusion at the rate of 5 mics per KG per minute. He is still spiking fever last temperature spike was 103.2. His antibiotic coverage included IV cefepime. Currently sedated with Diprivan. He is calm and comfortable. He is on a mechanical ventilator assist control mode at the rate of 20, tidal volume of 450, FiO2 50% and a PEEP of 5. He is chest x-ray from this morning he still showing some right basilar atelectasis/infiltrate along with cardiomegaly. The blood gases post intubation showed a pH of 7.34 with a pCO2 of 35 and a pO2 of more than 400 and based on that the FiO2 is down to 50%. His initial lactic acid level was 2.6 and dropped down to 1.8. [facility] cultures were sent and the results are still pending for now. Note that the patient was not hypoglycemic on the floor. The patient did not have any seizure activity on the floor. The patient did not have any headaches or neck stiffness on the floor. However, he was found to be quite unresponsive and he was not able to protect his airway judged by the nursing staff and for that reason he was intubated and placed on mechanical ventilator. On 01/20/2018 I'm seeing this patient for a follow-up. The patient was sedated for the past 24 hours and earlier this morning at around 8:30 he was taken off the propofol and when the process of getting this patient a sedation holiday and assessing his mental status. This will be very difficult 9 and the patient is very hard of hearing. He can only hear flow his left ear. He also has left- sided weakness and his dominant side is on the right. The patient is on a mechanical ventilator. He is an assist-control mode at the rate of 20 with a tidal volume of 450 and FiO2 of 40% and a PEEP of 5. The morning blood gases showed a pH of 7.41 with a pCO2 of 30 and pO2 of 148. CAT scan of the chest was done yesterday, and he did not show any evidence of any pneumonia and there was a large pericardial fat pad and no airspace disease or pulmonary infiltrates noted. Note that the CAT scan of the abdomen and pelvis was also negative for any infectious source. The patient continued to spike fever although of a less intensity. His most recent temperature spike was 101 at 8: 00 this morning. All of the cultures of been negative. The patient was seen by infectious disease. Recommendations was to proceed with a lumbar puncture. The patient's declined to give a consent for lumbar puncture to rule out any [employer] infections or encephalitis. The patient is currently covered with accommodation of antibiotics and he is on a combination of IV vancomycin and IV Zosyn. The patient was taken off the pressors at 10:30 PM last night. The patient is receiving IV fluids at maintenance normal saline at the rate of 75 mL an hour. He is on IV Protonix for GI prophylaxis. He is on Lovenox for DVT prophylaxis. His insight scale insulin coverage. He is also on a combination of Keppra oral and valproic acid IV per neurology regarding his seizure disorder. EEG was done and it shows slowing of the background mostly in the center range consistent with mild encephalopathy. No seizure activity was noted. Objective - Vital Signs Vital signs: Vital Signs Temp 101.0 F H 01/20/18 08:00 Pulse 97 01/20/18 09:00 Resp 30 H 01/20/18 09:00 BP 135/66 01/20/18 09:00 Pulse Ox 100 01/20/18 09:00 Intake & Output 01/19/18 01/20/18 01/20/18 18:59 06:59 18:59 Intake Total 0508.995 6571.082 223.086 Output Total 1335 755 115 Balance 76.687 1162.082 108.086 Weight 120.9 kg Intake: IV 900 1575 200 Piperacillin-Tazobactam 3 50 .375 gm In Dextrose/Water 1 50ml.bag @ 12.5 mls/hr IVPB Q8HR [facility] Rx#: [id number] Sodium Chloride 0.9% 1, 900 300 000 ml @ 75 mls/hr IV . [id number] [facility] Rx#:[id number] Sodium Chloride 0.9% 1, 675 150 000 ml @ 75 mls/hr IV . [id number] [facility] Rx#:[id number] Valproate Sodium 1,000 mg 50 50 In Sodium Chloride 0.9% 50 ml @ 50 mls/hr IVPB DAILY@2100 [facility] Rx#: [id number] Vancomycin 2,000 mg In 500 Sodium Chloride 0.9% 500 ml @ 167 mls/hr IVPB Q12H [facility] Rx#:[id number] Intake, IV Titration 511.687 282.082 23.086 Amount Norepinephrin 4 mg-0.9% 44.687 Ns Pmx 4 mg In 250 ml @ Titrate IV .Q0M [facility] Rx#: [id number] Piperacillin-Tazobactam 3 50 .375 gm In Dextrose/Water 1 50ml.bag @ 12.5 mls/hr IVPB Q8HR [facility] Rx#: [id number] Propofol 1,000 mg In 200 282.082 23.086 Empty Bag 1 bag @ Titrate IV .Q0M [facility] Rx#: [id number] Valproate Sodium 1,000 mg 50 In Sodium Chloride 0.9% 50 ml @ 50 mls/hr IVPB DAILY@2100 [facility] Rx#: [id number] Vancomycin 2,000 mg In 167 Sodium Chloride 0.9% 500 ml @ 167 mls/hr IVPB Q12HR [facility] Rx#:[id number] Oral 60 Output: Gastric Drainage 250 Urine 1085 755 115 Other: Voiding Method Indwelling Catheter Indwelling Catheter # Voids 1 ABP, PAP, CO, CI - Last Documented Arterial Blood Pressure 119/54 - Exam Obese, comfortable sedated on a mechanical ventilator. Nonacute distress. Head exam was generally normal. There was no scleral icterus or corneal arcus. Mucous membranes were moist. Neck was supple and without jugular venous distension, thyromegaly, or carotid bruits. Carotids were easily palpable bilaterally. There was no adenopathy. The patient has a short neck and the patient has an orogastric and orotracheal tube are both of them are in place. No significant secretions through the orotracheal tube. Lungs were clear to auscultation and percussion, and with normal diaphragmatic excursion. No wheezes or rales were noted. Cardiac exam revealed the PMI to be normally situated and sized. The rhythm was regular and no extrasystoles were noted during several minutes of auscultation. The first and second heart sounds were normal and physiologic splitting of the second heart sound was noted. There were no murmurs, rubs, clicks, or gallops. Abdomen is obese and soft. Nontender and there is no direct tenderness hemoptysis or guarding. Organs cannot be a cardiac palpated. Examination of the extremities revealed easily palpable radial, femoral and pedal pulses. There was no cyanosis, clubbing or edema. Examination of the skin revealed no evidence of significant rashes, suspicious appearing nevi or other concerning lesions. Neurologically the patient is sedated. He grimaces to painful stimulation in all 4 extremities. Motor function cannot be accurately assessed at this point in time. Pupils are equal and reactive to light. They are sluggish to light reflex. There are 2 mm in size and symmetrical bilaterally. - Labs CBC & Chem 7: 0801/18 04:51 01/20/18 04:51 Labs: Abnormal Lab Results - Last 24 Hours (Table) 01/19/18 01/19/18 01/19/18 Range/Units 11:24 12:40 16:54 RBC (4.30-5.90) m/uL Hgb (13.0-17.5) gm/dL Hct (39.0-53.0) % Plt Count (150-450) k/uL Lymphocytes # (1.0-4.8) k/uL ABG pCO2 (35-45) mmHg ABG pO2 (83-108) mmHg ABG HCO3 (21-25) mmol/L ABG O2 Saturation (94-97) % Sodium (137-145) mmol/L Carbon Dioxide (22-30) mmol/L Glucose (74-99) mg/dL POC Glucose (mg/dL) 288 H 269 H 259 H (75-99) mg/dL Calcium (8.4-10.2) mg/dL 01/19/18 01/19/18 01/20/18 Range/Units 20:31 23:49 04:29 RBC (4.30-5.90) m/uL Hgb (13.0-17.5) gm/dL Hct (39.0-53.0) % Plt Count (150-450) k/uL Lymphocytes # (1.0-4.8) k/uL ABG pCO2 (35-45) mmHg ABG pO2 (83-108) mmHg ABG HCO3 (21-25) mmol/L ABG O2 Saturation (94-97) % Sodium (137-145) mmol/L Carbon Dioxide (22-30) mmol/L Glucose (74-99) mg/dL POC Glucose (mg/dL) 280 H 255 H 222 H (75-99) mg/dL Calcium (8.4-10.2) mg/dL 01/20/18 01/20/18 01/20/18 Range/Units 04:51 04:51 05:04 RBC 3.86 L (4.30-5.90) m/uL Hgb 12.2 L (13.0-17.5) gm/dL Hct 37.7 L (39.0-53.0) % Plt Count 105 L (150-450) k/uL Lymphocytes # 0.6 L (1.0-4.8) k/uL ABG pCO2 30 L (35-45) mmHg ABG pO2 148 H (83-108) mmHg ABG HCO3 19 L (21-25) mmol/L ABG O2 Saturation 99.7 H (94-97) % Sodium 133 L (137-145) mmol/L Carbon Dioxide 20 L (22-30) mmol/L Glucose 211 H (74-99) mg/dL POC Glucose (mg/dL) (75-99) mg/dL Calcium 7.6 L (8.4-10.2) mg/dL 01/20/18 Range/Units 09:08 RBC (4.30-5.90) m/uL Hgb (13.0-17.5) gm/dL Hct (39.0-53.0) % Plt Count (150-450) k/uL Lymphocytes # (1.0-4.8) k/uL ABG pCO2 (35-45) mmHg ABG pO2 (83-108) mmHg ABG HCO3 (21-25) mmol/L ABG O2 Saturation (94-97) % Sodium (137-145) mmol/L Carbon Dioxide (22-30) mmol/L Glucose (74-99) mg/dL POC Glucose (mg/dL) 236 H (75-99) mg/dL Calcium (8.4-10.2) mg/dL Microbiology - Last 24 Hours (Table) 01/19/18 03:49 Gram Stain - Preliminary Sputum Sputum Culture - Preliminary 01/18/18 09:32 Urine Culture - Final Urine,Catheterized 01/19/18 04:40 Urine Culture - Preliminary Urine,Catheterized 01/18/18 08:20 Blood Culture - Preliminary Blood No Growth after 24 hours Assessment and Plan Plan: Assessment 1 altered mentation with diminished level of consciousness and inability to protect airway. The patient is currently intubated on a mechanical ventilator. Exact cause for the altered mentation is not clear. Is very much likely the patient was profoundly septic and encephalopathic which led into further diminishment in the mental status and as such the patient was intubated and placed on mechanical ventilator for airway protection. CAT scan of the brain showed chronic atrophy. No seizure activity has been noted. No neck stiffness. No signs of meningitis at this point. On 01/20/2018 the patient is still having fever and the septic workup has been negative. The blood cultures of been negative. CAT scan of the chest and abdomen and pelvis were all negative. Meanwhile, and lumbar puncture was recommended however the patient's family declined to give us a consent. The antibiotic coverage including Zosyn and vancomycin for now. No significant leukocytosis. Hemodynamically stable and the patient is a currently off pressors. A EEG was done that showed some mild encephalopathy while the patient on Diprivan. No seizure activity has been noted. Antiepileptic medications are being monitored by neurology. 2 acute respiratory failure secondary to above. The patient was not hypoxic and they patient was intubated for airway protection due to his diminished level of consciousness and altered mentation. 3 acute febrile illness along with tachycardia and hypotension. The hypotension is recovered and the patient is still having fever. The septic workup is negative for now. All of the cultures are negative. Rule out a component of viral encephalitis. 4 obesity with a BMI 44.8 5 CVA with left-sided hemiplegia and the patient is a wheelchair-bound gentleman 6 diabetes mellitus maintained on insulin pump on outpatient basis currently off the insulin pump and the patient is on a NovoLog size scattered coverage 7 history of seizure disorder 8 hyperlipidemia 9 coronary artery disease 10 severe persistent bronchial asthma 11 hypothyroidism 12 impaired hearing Plan Continue IV fluids with 0.9 at 75 mL an hour. Monitor the results of the blood cultures. Continue same antibiotic coverage including a combination of Zosyn and vancomycin. Stop the Diprivan and and assess the patient's mental status. His oxidation is adequate. The patient is also ventilating adequately. His chest x-ray is clear for now. No evidence of any pneumonia. Hemodynamically stable on no pressors. Atelectatic discussion with the patient's was very much frustrated about the condition. She thinks that he has multiple medical problems and his baseline performance and functional status has been poor and she does not want to prolong his suffering. Nevertheless, she was agreeable to give him a chance for another 24-48 hours to see if this will be a successful wean off the mechanical ventilator. I discussed the case with neurology and infectious disease. Lumbar puncture was not done at the patient's family did not give us a consent for that. We'll continue with the supportive care. Repeat CAT scan of the brain today. We'll continue to follow make further recommendations based on his progress. May consider checking his weaning parameters and giving him a spontaneous breathing trial today as long as he demonstrates adequate neurologic functions off sedation. Critically care evaluation that was done in 40 minutes including a lengthy discussion done with the at the bedside. Time with Patient: Greater than 30
[2018-01-20] MEDS: VANCOMYCIN 2,000 MG in SODIUM CHLORIDE 0.9% 500 ML IVPB SCH ×2 (10:06→21:30)
[2018-01-20] MEDS ORDERED: ACETAMINOPHEN IV (For NPO) 1,000 MG in EMPTY BAG 1 BAG IVPB ONE (10:30)
[2018-01-20 11:59] LABS: Glucose,Whole Blood 236 mg/dL (75-99)
--- NOTE | 2018-01-20 14:03 | PN ---
PROGRESS NOTE DATE OF SERVICE: 01/20/2018 REASON FOR FOLLOWUP: Sepsis, fever, possible encephalitis. INTERVAL HISTORY: The patient's did refuse consent for an LP that was recommended yesterday. I did talk to her on the phone. However, at the end of discussion was per her statement, I can tell anything, but she will not sign for it. Patient is hemodynamically stable and has been taken off the pressors, fever pattern has improved and the highest temperature this morning has been 101 degrees Fahrenheit compared to 103 the day before. His stable at 40% and no significant restriction of the ET. PHYSICAL EXAMINATION: Blood pressure 117/62 with a pulse of 90, temperature of T-max of 101. He is 100% on 40% FiO2. General description is a middle-aged male, lying in bed in no distress. RESPIRATORY SYSTEM: Unlabored breathing, clear to auscultation anteriorly. HEART: S1, S2. Regular rate and rhythm. ABDOMEN: Soft, no tenderness. EXTREMITIES: No edema of the feet. LABS: Hemoglobin 12.1, white count 7.9 with a BUN of 9, creatinine 0.70. Cultures currently pending. DIAGNOSTIC IMPRESSION AND PLAN: Patient with a fever, mental status changes. So far did have extensive workup, no clear focus. Question of possible pneumonia; however, encephalitis was not available, unfortunately the patient's refused LP. Herpes serologies will be requested, if positive and the patient did have a fever, a therapeutic addition of the acyclovir will be considered; however, for no continue with vancomycin and Zosyn while watching his clinical course and culture closely. Continue supportive care. MMODL / IJN: [id number] /
[2018-01-20 16:24] LABS: Glucose,Whole Blood 244 mg/dL (75-99)
[2018-01-20] MEDS: HYDROmorphone 1 MG/ML 1 ML SYRINGE IVP PRN ×2 (17:28→20:45)
[2018-01-20] MEDS: SODIUM CHLORIDE 0.9% 1,000 ML IV SCH (17:34)
--- NOTE | 2018-01-20 17:36 | PN ---
PROGRESS NOTE DATE OF SERVICE: 01/20/2018 PRESENTING COMPLAINT: Sepsis. INTERVAL HISTORY: This is a patient with multiple medical problems who presented with septic picture, initially felt to be pneumonia. Antibiotics were started for the same. The patient then was intubated. Remains on the ventilator. ID had ordered a lumbar puncture, but his did not want that. Patient remains on IV antibiotics. Diprivan has been held today. Getting IV fluids. Not much secretions to the endotracheal tube. REVIEW OF SYSTEMS: Patient is intubated. CURRENT MEDICATIONS: Current medications are reviewed. They include IV Zosyn. Propofol has been held. Vancomycin. PHYSICAL EXAMINATION: T-max 101, pulse 101, respiration 37, blood pressure 137/66, pulse ox 99% on 40% FiO2. GENERAL APPEARANCE: Lying in bed, intubated. EYES: Pupils equal. Conjunctivae normal. HEENT: External appearance of nose and ears normal. Oral cavity with endotracheal tube in place. NECK: JVD unable to assess. Short, thick. RESPIRATORY: Effort increased. LUNGS: Distant breath sounds. CARDIOVASCULAR: First and second sounds normal. No edema. ABDOMEN: Distended, soft. Liver and spleen not palpable. No tenderness. PSYCHIATRY: Patient intubated; unable to assess. NEUROLOGICAL: Chronic left arm weakness 4/5. Left leg weakness is 2/5 with decreased sensation in the left leg, chronic. INVESTIGATIONS: White count 7.9, hemoglobin 12.2. Potassium 4.1. BUN and creatinine are normal. Chest x- ray film interpreted by me: Right base infiltrate. ASSESSMENT: 1. Severe sepsis; pneumonia suspected. does not want a lumbar puncture. Sepsis is slow to respond. Still spiking fevers and tachycardic. 2. Moderate persistent asthma with acute exacerbation. 3. Acute hypoxic respiratory failure. Patient now requiring ventilator support. 4. Left-sided weakness from a prior stroke; more weakness in the left leg than the arm. 5. Diabetes mellitus, type 2, chronically on insulin pump, currently uncontrolled with hyperglycemia. Because of multiple allergies, is on NovoLog. 6. Gastroesophageal reflux disease. 7. Hyperlipidemia. 8. Essential hypertension. 9. Memory impairment, chronic. 10.Primary osteoarthritis. 11.Hypothyroid. 12.Peripheral neuropathy secondary to diabetes. PLAN: Continue current medication and treatment plan. Broad-spectrum antibiotics to continue. LP was not warranted by the patient's . Prognosis is guarded. The patient remains critically ill. Follow in the ICU. MMODL / IJN: [id number] /
[2018-01-20 19:48] LABS: Glucose,Whole Blood 230 mg/dL (75-99)
[2018-01-20] MEDS: MONTELUKAST 10 MG TAB PO SCH (19:55)
--- NOTE | 2018-01-20 22:25 | CT ---
EXAMINATION TYPE: CT brain wo con DATE OF EXAM: 01/20/2018 COMPARISON: 01/19/2018 HISTORY: Altered mental status. CT DLP: 1152.7 mGycm Automated exposure control for dose reduction was used. FINDINGS: There is mild cerebral cortical atrophy. There is no mass effect nor midline shift. There is no sign of intracranial hemorrhage. There is fluid level in the right maxillary sinus. I see no bony destruct satish process. There is fluid level and mucosal thickening in the sphenoid sinus. The calvarium is inta ct. IMPRESSION: CEREBRAL ATROPHY. NO ACUTE INTRACRANIAL ABNORMALITY. THERE IS NEW SINUSITIS COMPARED TO OLD EXAM.
[2018-01-20 23:44] LABS: Glucose,Whole Blood 191 mg/dL (75-99)
[2018-01-21] MEDS: VALPROATE SODIUM 500 MG in SODIUM CHLORIDE 0.9% 50 ML IVPB SCH ×3 (01:04→17:39)
[2018-01-21] MEDS: PIPERACILLIN-TAZOBACTAM 3.375 GM in DEXTROSE/WATER 1 50ML.BAG IVPB SCH ×3 (01:04→16:58)
[2018-01-21] MEDS: SODIUM CHLORIDE 0.9% 1,000 ML IV SCH ×2 (01:05→12:09)
[2018-01-21] MEDS: INSULIN ASPART 100 UNIT/ML 1 ML 10 ML VIAL SQ SCH ×6 (01:09→21:14)
[2018-01-21] MEDS: HYDROmorphone 1 MG/ML 1 ML SYRINGE IVP PRN (04:04)
[2018-01-21 04:34] LABS: Glucose,Whole Blood 209 mg/dL (75-99)
[2018-01-21 04:41] LABS: ABG HCO3 22 mmol/L (21-25); ABG Oxygen Saturation 99.1 % (94-97); ABG PCO2 38 mmHg (35-45); ABG PH 7.37 (7.35-7.45); ABG PO2 114 mmHg (83-108); ABG TCO2 24 mmol/L (19-24)
[2018-01-21 05:05] LABS: Basophils % (A) 0 %; Eosinophils # (A) 0.1 k/uL (0-0.7); Eosinophils % (A) 3 %; HCT 32.1 % (39.0-53.0); HGB 10.2 gm/dL (13.0-17.5); Lymphocytes # (A) 0.5 k/uL (1.0-4.8); Lymphocytes % (A) 10 %; MCH 30.8 pg (25.0-35.0); MCHC 31.8 g/dL (31.0-37.0); MCV 96.9 fL (80.0-100.0); Mean Platelet Volume 7.6; Monocytes # (A) 0.3 k/uL (0-1.0); Monocytes % (A) 6 %; Neutrophils # (A) 4.2 k/uL (1.3-7.7); Neutrophils % (A) 78 %; RBC 3.31 m/uL (4.30-5.90); RDW 15.1 % (11.5-15.5); WBC 5.3 k/uL (3.8-10.6)
[2018-01-21 05:15] LABS: Anion Gap 6 mmol/L; Blood Urea Nitrogen 10 mg/dL (9-20); Calcium 7.1 mg/dL (8.4-10.2); Carbon Dioxide 21 mmol/L (22-30); Chloride 109 mmol/L (98-107); Glucose 193 mg/dL (74-99); Magnesium 2.3 mg/dL (1.6-2.3); Phosphorus 2.3 mg/dL (2.5-4.5); Potassium 3.8 mmol/L (3.5-5.1); Sodium 136 mmol/L (137-145)
[2018-01-21 05:33] LABS: Platelet Count 93 k/uL (150-450)
[2018-01-21] MEDS: LEVOTHYROXINE 50 MCG TAB PO SCH (06:37)
[2018-01-21] MEDS ORDERED: POTASSIUM BICARBONATE/CIT AC 20 MEQ TABLET.EFF NG-TUBE SCH (07:00)
--- NOTE | 2018-01-21 07:23 | XR ---
EXAMINATION TYPE: XR chest 1V portable DATE OF EXAM: 01/21/2018 COMPARISON: 01/20/2018 INDICATION: Line placement, follow-up previous chest x-ray TECHNIQUE: Single frontal view of the chest is obtained in a semiupright position. FINDINGS: The heart size is normal. The pulmonary vasculature is normal. Mild infiltrate is at the right costophrenic angle. Old right rib fractures are present. An endotracheal tube is present with the tip above the lyudmila. Nasogastric tube transverses the thora x. IMPRESSION: 1. Mild atelectatic type changes right lung base. 2. Lines and catheters discussed above.
[2018-01-21] MEDS: CHLORHEXIDINE GLUCONATE 15 ML CUP MUCOUS MEM SCH (07:45)
[2018-01-21] MEDS: IPRATROPIUM-ALBUTEROL 3 ML NEB INHALATION SCH ×4 (08:00→20:10)
[2018-01-21] MEDS ORDERED: FUROSEMIDE 10 MG/ML 4 ML VIAL IV STA (08:24)
[2018-01-21 08:31] LABS: Glucose,Whole Blood 158 mg/dL (75-99)
--- NOTE | 2018-01-21 08:33 | P.PN ---
Subjective Progress Note Date: 01/21/18 This is a 52-year-old morbidly obese male patient with history of a CVA approximately 18 years ago and the patient has been wheelchair bound since then with left-sided hemiplegia and weakness related to the stroke. The patient also has history of coronary artery disease, history of seizure disorder maintained on multiple antiepileptic medication, history of hypertension and hyperlipidemia and congestion heart failure. The patient is also hard of hearing. Apparently this patient has been having symptoms of cough and congestion and shortness of breath and he had contacted his primary care physician and he was given antibiotics on outpatient basis. Subsequently his condition got worse and he was having fever with temperatures of 101.9 and he was also becoming more lethargic. For that reason the patient was brought into the emergency department. Initial chest x-ray on admission showed low lung volumes and cardiomegaly and right basilar infiltration. He did complain of abdominal pain. For that reason a CAT scan of the abdomen was done that showed no acute intra-abdominal process and there was evidence of hepatic steatosis and pancreatic atrophy and small left renal cyst. In fact, the lung bases did not show any significant abnormalities. The CAT scan of the brain that was done in emergency department showed no evidence of any acute intracranial hemorrhage or midline shift. There was stable moderate diffuse age-related atrophy and was treated. Overnight, the patient's condition got worse. The patient started having high-grade fever with a temperature of 105. He was also tachycardic, sinus tachycardia with a heart rate of 1:30. He was also found to be tachypneic with respiration the mid 40s and he was unresponsive to verbal stimulation. Note that he did not have any seizure activity at least no seizure activity noted by the nursing staff or by the family. At that point the patient was considered to be profoundly septic. He was intubated and was brought to the intensive care unit for further management. Overnight, the patient received a total of 3 L and he was also started on pressors and currently is on norepinephrine infusion at the rate of 5 mics per KG per minute. He is still spiking fever last temperature spike was 103.2. His antibiotic coverage included IV cefepime. Currently sedated with Diprivan. He is calm and comfortable. He is on a mechanical ventilator assist control mode at the rate of 20, tidal volume of 450, FiO2 50% and a PEEP of 5. He is chest x-ray from this morning he still showing some right basilar atelectasis/infiltrate along with cardiomegaly. The blood gases post intubation showed a pH of 7.34 with a pCO2 of 35 and a pO2 of more than 400 and based on that the FiO2 is down to 50%. His initial lactic acid level was 2.6 and dropped down to 1.8. [facility] cultures were sent and the results are still pending for now. Note that the patient was not hypoglycemic on the floor. The patient did not have any seizure activity on the floor. The patient did not have any headaches or neck stiffness on the floor. However, he was found to be quite unresponsive and he was not able to protect his airway judged by the nursing staff and for that reason he was intubated and placed on mechanical ventilator. On 01/20/2018 I'm seeing this patient for a follow-up. The patient was sedated for the past 24 hours and earlier this morning at around 8:30 he was taken off the propofol and when the process of getting this patient a sedation holiday and assessing his mental status. This will be very difficult 9 and the patient is very hard of hearing. He can only hear flow his left ear. He also has left- sided weakness and his dominant side is on the right. The patient is on a mechanical ventilator. He is an assist-control mode at the rate of 20 with a tidal volume of 450 and FiO2 of 40% and a PEEP of 5. The morning blood gases showed a pH of 7.41 with a pCO2 of 30 and pO2 of 148. CAT scan of the chest was done yesterday, and he did not show any evidence of any pneumonia and there was a large pericardial fat pad and no airspace disease or pulmonary infiltrates noted. Note that the CAT scan of the abdomen and pelvis was also negative for any infectious source. The patient continued to spike fever although of a less intensity. His most recent temperature spike was 101 at 8: 00 this morning. All of the cultures of been negative. The patient was seen by infectious disease. Recommendations was to proceed with a lumbar puncture. The patient's declined to give a consent for lumbar puncture to rule out any [employer] infections or encephalitis. The patient is currently covered with accommodation of antibiotics and he is on a combination of IV vancomycin and IV Zosyn. The patient was taken off the pressors at 10:30 PM last night. The patient is receiving IV fluids at maintenance normal saline at the rate of 75 mL an hour. He is on IV Protonix for GI prophylaxis. He is on Lovenox for DVT prophylaxis. His insight scale insulin coverage. He is also on a combination of Keppra oral and valproic acid IV per neurology regarding his seizure disorder. EEG was done and it shows slowing of the background mostly in the center range consistent with mild encephalopathy. No seizure activity was noted. On 01/21/2018, I'm seeing this patient for a follow-up. The patient is still in the intensive care unit. The patient is still on a mechanical ventilator. He was taken off the sedation yesterday and the patient has been off Diprivan for the past 24 hours. He is requiring only Dilaudid for comfort. He is on extremely well. He is awake and following commands. He is opening his eyes. He has a decent cough. Earlier this morning he was assist-control mode of ventilation at the rate of 20 with a tidal volume of 450 and FiO2 of 40% and a PEEP of 5. The blood gases from this morning showed a pH of 7.37 with a pCO2 of 38 and pO2 of 114. The patient has some atelectatic change in the right lung base. ET tube is in a good location. No evidence of any acute pneumonia. His fever has improved and he has not spike fever over the past 12 hours. All of the cultures of been negative. He is hemodynamically stable. No other significant events overnight. The patient is potentially can extubate today. Objective - Vital Signs Vital signs: Vital Signs Temp 99.2 F 01/21/18 04:00 Pulse 83 01/21/18 08:22 Resp 20 01/21/18 07:00 BP 109/55 01/21/18 07:00 Pulse Ox 100 01/21/18 07:00 Intake & Output 01/20/18 01/21/18 01/21/18 18:59 06:59 18:59 Intake Total 349.499 1034 Output Total 925 575 Balance 73.086 1060 Weight 118.9 kg Intake: IV 875 1575 Piperacillin-Tazobactam 3 50 .375 gm In Dextrose/Water 1 50ml.bag @ 12.5 mls/hr IVPB Q8HR [facility] Rx#: [id number] Sodium Chloride 0.9% 1, 825 975 000 ml @ 75 mls/hr IV . [id number] [facility] Rx#:[id number] Valproate Sodium 1,000 mg 50 50 In Sodium Chloride 0.9% 50 ml @ 50 mls/hr IVPB DAILY@2100 [facility] Rx#: [id number] Vancomycin 2,000 mg In 500 Sodium Chloride 0.9% 500 ml @ 167 mls/hr IVPB Q12H [facility] Rx#:[id number] Intake, IV Titration 123.086 Amount ACETAMINOPHEN IV (For NPO 100 ) 1,000 mg In Empty Bag 1 bag @ 400 mls/hr IVPB Q6HR [facility] Rx#:[id number] Propofol 1,000 mg In 23.086 Empty Bag 1 bag @ Titrate IV .Q0M [facility] Rx#: [id number] Oral 60 Output: Urine 925 575 Other: Voiding Method Indwelling Catheter Indwelling Catheter ABP, PAP, CO, CI - Last Documented Arterial Blood Pressure 119/54 - Exam Obese, comfortable awake and she is following commands Head exam was generally normal. There was no scleral icterus or corneal arcus. Mucous membranes were moist. Neck was supple and without jugular venous distension, thyromegaly, or carotid bruits. Carotids were easily palpable bilaterally. There was no adenopathy. The patient has a short neck and the patient has an orogastric and orotracheal tube are both of them are in place. No significant secretions through the orotracheal tube. Lungs were clear to auscultation and percussion, and with normal diaphragmatic excursion. No wheezes or rales were noted. Cardiac exam revealed the PMI to be normally situated and sized. The rhythm was regular and no extrasystoles were noted during several minutes of auscultation. The first and second heart sounds were normal and physiologic splitting of the second heart sound was noted. There were no murmurs, rubs, clicks, or gallops. Abdomen is obese and soft. Nontender and there is no direct tenderness hemoptysis or guarding. Organs cannot be a cardiac palpated. Examination of the extremities revealed easily palpable radial, femoral and pedal pulses. There was no cyanosis, clubbing or edema. Examination of the skin revealed no evidence of significant rashes, suspicious appearing nevi or other concerning lesions. Neurologically the patient is awake and alert. He grimaces to painful stimulation in all 4 extremities. Motor function cannot be accurately assessed at this point in time. Pupils are equal and reactive to light. They are sluggish to light reflex. There are 2 mm in size and symmetrical bilaterally. - Labs CBC & Chem 7: 01/21/18 04:30 01/21/18 04:30 Labs: Abnormal Lab Results - Last 24 Hours (Table) 01/20/18 01/20/18 01/20/18 Range/Units 04:51 09:08 11:58 RBC (4.30-5.90) m/uL Hgb (13.0-17.5) gm/dL Hct (39.0-53.0) % Plt Count (150-450) k/uL Lymphocytes # (1.0-4.8) k/uL ABG pO2 (83-108) mmHg ABG O2 Saturation (94-97) % Sodium (137-145) mmol/L Chloride (98-107) mmol/L Carbon Dioxide (22-30) mmol/L Creatinine (0.66-1.25) mg/dL Glucose (74-99) mg/dL POC Glucose (mg/dL) 236 H 236 H (75-99) mg/dL Calcium (8.4-10.2) mg/dL Phosphorus (2.5-4.5) mg/dL HSV I IgG Interpret POSITIVE H (NEGATIVE) 01/20/18 01/20/18 01/20/18 Range/Units 16:22 19:46 23:43 RBC (4.30-5.90) m/uL Hgb (13.0-17.5) gm/dL Hct (39.0-53.0) % Plt Count (150-450) k/uL Lymphocytes # (1.0-4.8) k/uL ABG pO2 (83-108) mmHg ABG O2 Saturation (94-97) % Sodium (137-145) mmol/L Chloride (98-107) mmol/L Carbon Dioxide (22-30) mmol/L Creatinine (0.66-1.25) mg/dL Glucose (74-99) mg/dL POC Glucose (mg/dL) 244 H 230 H 191 H (75-99) mg/dL Calcium (8.4-10.2) mg/dL Phosphorus (2.5-4.5) mg/dL HSV I IgG Interpret (NEGATIVE) 01/21/18 01/21/18 01/21/18 Range/Units 04:30 04:30 04:32 RBC 3.31 L (4.30-5.90) m/uL Hgb 10.2 L (13.0-17.5) gm/dL Hct 32.1 L (39.0-53.0) % Plt Count 93 L (150-450) k/uL Lymphocytes # 0.5 L (1.0-4.8) k/uL ABG pO2 (83-108) mmHg ABG O2 Saturation (94-97) % Sodium 136 L (137-145) mmol/L Chloride 109 H (98-107) mmol/L Carbon Dioxide 21 L (22-30) mmol/L Creatinine 0.60 L (0.66-1.25) mg/dL Glucose 193 H (74-99) mg/dL POC Glucose (mg/dL) 209 H (75-99) mg/dL Calcium 7.1 L (8.4-10.2) mg/dL Phosphorus 2.3 L (2.5-4.5) mg/dL HSV I IgG Interpret (NEGATIVE) 01/21/18 Range/Units 04:39 RBC (4.30-5.90) m/uL Hgb (13.0-17.5) gm/dL Hct (39.0-53.0) % Plt Count (150-450) k/uL Lymphocytes # (1.0-4.8) k/uL ABG pO2 114 H (83-108) mmHg ABG O2 Saturation 99.1 H (94-97) % Sodium (137-145) mmol/L Chloride (98-107) mmol/L Carbon Dioxide (22-30) mmol/L Creatinine (0.66-1.25) mg/dL Glucose (74-99) mg/dL POC Glucose (mg/dL) (75-99) mg/dL Calcium (8.4-10.2) mg/dL Phosphorus (2.5-4.5) mg/dL HSV I IgG Interpret (NEGATIVE) Microbiology - Last 24 Hours (Table) 01/19/18 04:40 Urine Culture - Final Urine,Catheterized 01/18/18 08:20 Blood Culture - Preliminary Blood No Growth after 48 hours Assessment and Plan Plan: Assessment 1 altered mentation with diminished level of consciousness and inability to protect airway. The patient is currently intubated on a mechanical ventilator. Exact cause for the altered mentation is not clear. Is very much likely the patient was profoundly septic and encephalopathic which led into further diminishment in the mental status and as such the patient was intubated and placed on mechanical ventilator for airway protection. CAT scan of the brain showed chronic atrophy. No seizure activity has been noted. No neck stiffness. No signs of meningitis at this point. On 01/20/2018 the patient is still having fever and the septic workup has been negative. The blood cultures of been negative. CAT scan of the chest and abdomen and pelvis were all negative. Meanwhile, and lumbar puncture was recommended however the patient's family declined to give us a consent. The antibiotic coverage including Zosyn and vancomycin for now. No significant leukocytosis. Hemodynamically stable and the patient is a currently off pressors. A EEG was done that showed some mild encephalopathy while the patient on Diprivan. No seizure activity has been noted. Antiepileptic medications are being monitored by neurology. On 01/21/2018, the patient is hemodynamically stable. Sepsis workup has been negative. He is awake and following simple commands. He is able to cough up on demand and he has a decent cough without significant amount of rest or secretions. It's likely the patient will be able to protect his airways. Based on all this, the patient will be given a spontaneous breathing trial and is a blood gases appropriate the patient will be extubated to a BiPAP. Chest x- ray shows some atelectatic changes in the right lung base. The patient be given a dose of Lasix 40 mg IV push right now. His fever pattern has improved. 2 acute respiratory failure secondary to above. The patient was not hypoxic and they patient was intubated for airway protection due to his diminished level of consciousness and altered mentation. 3 acute febrile illness along with tachycardia and hypotension. The hypotension is recovered and the patient is still having fever. The septic workup is negative for now. All of the cultures are negative. Rule out a component of viral encephalitis. 4 obesity with a BMI 44.8 5 CVA with left-sided hemiplegia and the patient is a wheelchair-bound gentleman 6 diabetes mellitus maintained on insulin pump on outpatient basis currently off the insulin pump and the patient is on a NovoLog size scattered coverage 7 history of seizure disorder 8 hyperlipidemia 9 coronary artery disease 10 severe persistent bronchial asthma 11 hypothyroidism 12 impaired hearing Plan Off sedation. The patient will be given a spontaneous breathing trial and possibly get extubated today the BiPAP. Continue monitoring the fever pattern. Continue same antibiotic coverage. Continue rest of the supportive care. The family has been updated on his condition. We'll continue to follow. THis is a critical care evaluation and this was done in 35 min Time with Patient: Greater than 30
[2018-01-21 08:40] LABS: ABG Base Excess -2.1 mmol/L; ABG HCO3 23 mmol/L (21-25); ABG Oxygen Saturation 99.8 % (94-97); ABG PCO2 38 mmHg (35-45); ABG PH 7.39 (7.35-7.45); ABG PO2 143 mmHg (83-108); ABG TCO2 24 mmol/L (19-24)
[2018-01-21] MEDS ORDERED: VANCOMYCIN TROUGH DUE 1 EACH MISC MISCELLANE ONE (09:00)
[2018-01-21] MEDS: METOCLOPRAMIDE 5 MG TAB PO SCH (09:05)
[2018-01-21] MEDS: levETIRAcetam ORAL SOLN 500 MG/5 ML CUP PO SCH ×2 (09:05→09:48)
[2018-01-21] MEDS: PANTOPRAZOLE 40 MG/10 ML VIAL IVP SCH ×2 (09:06→21:14)
[2018-01-21] MEDS: POTASSIUM CHLORIDE ER 20 MEQ TAB.ER PO SCH (09:06)
[2018-01-21] MEDS: SERTRALINE 25 MG TAB PO SCH (09:06)
[2018-01-21] MEDS: ENOXAPARIN 40 MG/0.4 ML SYRINGE SQ SCH (09:33)
[2018-01-21] MEDS ORDERED: Potassium Replacement Protocol 1 EACH MISC MISCELLANE PRN (09:40)
[2018-01-21] MEDS: levETIRAcetam IV 1,500 MG in SALINE 1 100ML.BAG IVPB SCH ×2 (10:17→21:19)
[2018-01-21] MEDS: POTASSIUM CHLORIDE 10 MEQ in WATER FOR INJECTION 1 100ML.BAG IVPB SCH ×2 (11:31→17:43)
[2018-01-21] MEDS ORDERED: DEXAMETHASONE SOD PHOSPHATE 10 MG/ML 1 ML VIAL IV STA (11:41)
[2018-01-21] MEDS: ONDANSETRON 4 MG/2 ML VIAL IVP PRN (11:45)
[2018-01-21 11:50] LABS: Glucose,Whole Blood 201 mg/dL (75-99)
[2018-01-21] MEDS: VANCOMYCIN 2,000 MG in SODIUM CHLORIDE 0.9% 500 ML IVPB SCH ×2 (12:00→22:12)
[2018-01-21] MEDS ORDERED: RACEPINEPHRINE 2.25% NEB 0.5 ML NEBU INHALATION STA ×2 (12:36→14:37)
--- NOTE | 2018-01-21 16:22 | P.PN ---
Subjective Progress Note Date: 01/21/18 Principal diagnosis: PHYSICAL EXAM: GENERAL APPEARANCE: Patient is a well-developed, male who appears to be in no acute distress. HEENT: Normocephalic, atraumatic, no obvious facial asymmetry is seen. Neck is supple with no masses felt. CARDIOVASCULAR: Regular rate and rhythm. ABDOMEN: Nontender, nondistended. Obese. EXTREMITIES: Show edema , no clubbing. NEUROLOGICAL EXAM: Patient is awake, alert and follows simple commands. Patient moves all 4 extremities on command such as wiggling fingers and toes. Extremity strength is difficult to assess due to patient's lethargy. Sensory exam is not able to be assessed due to patient lethargy. No obvious facial asymmetry noted. No tremors or seizure-like activity is seen. 01/20/2018 Patient is a 52-year-old male who is being followed by the neurology service for altered mental status. Patient had sudden onset of altered mental status and was brought to [facility] for further evaluation. Patient's states that he fell out of bed and was having difficulty breathing. does not describe any seizure-like activity but did say she noticed urinary incontinence when helping him back to bed. Patient does have history of seizure disorder and is on Keppra 1500 mg twice daily and Depakote ER 1250 mg daily in the home setting. Patient was febrile upon admission with a temp of 101.9. Patient was admitted to the hospital and went to a medical floor. Patient was found unresponsive and was intubated and transferred to the ICU. Patient continues to be intubated on mechanical ventilation in the ICU. CT of the brain on admission showed no acute intracranial hemorrhage. Follow- up CT of the brain showed no significant change from prior CT of the brain. CT of the brain did show minimal white matter changes likely chronic in nature. No acute process was noted. EEG showed mild encephalopathy. At the time of my evaluation, patient remains intubated in the ICU. Patient is not following commands for me. Staff reports occasionally he will follow commands. Staff informs me they will try to wean patient off the ventilator later today. Patient does not appear to be in any acute distress. 01/21/2018 Patient is a 52-year-old male who is being followed by the neurology service for altered mental status. Patient is now extubated and on BiPAP. Patient is following simple commands. He awakens to his name. Patient continues to be followed in the ICU. No seizure-like activity noted. At the time of my evaluation, patient appears to be in no acute distress. Objective - Vital Signs Vital signs: Vital Signs Temp 99.3 F 01/21/18 07:30 Pulse 89 01/21/18 15:16 Resp 27 H 01/21/18 15:16 BP 116/68 01/21/18 15:00 Pulse Ox 99 01/21/18 15:00 Intake & Output 01/20/18 01/21/18 01/21/18 18:59 06:59 18:59 Intake Total 805.112 5452 890 Output Total 609 755 2596 Balance 73.086 1060 -1854 Weight 118.9 kg Intake: IV 875 1575 890 Piperacillin-Tazobactam 3 50 50 .375 gm In Dextrose/Water 1 50ml.bag @ 12.5 mls/hr IVPB Q8HR [facility] Rx#: [id number] Sodium Chloride 0.9% 1, 825 975 390 000 ml @ 50 mls/hr IV . Q20H [facility] Rx#:[id number] Valproate Sodium 1,000 mg 50 50 50 In Sodium Chloride 0.9% 50 ml @ 50 mls/hr IVPB DAILY@2100 [facility] Rx#: [id number] Vancomycin 2,000 mg In 500 Sodium Chloride 0.9% 500 ml @ 167 mls/hr IVPB Q12H [facility] Rx#:[id number] levETIRAcetam IV 1,500 mg 400 In Saline 1 100ml.bag @ 400 mls/hr IVPB Q12HR [facility] Rx#:[id number] Intake, IV Titration 123.086 Amount ACETAMINOPHEN IV (For NPO 100 ) 1,000 mg In Empty Bag 1 bag @ 400 mls/hr IVPB Q6HR [facility] Rx#:[id number] Propofol 1,000 mg In 23.086 Empty Bag 1 bag @ Titrate IV .Q0M [facility] Rx#: [id number] Oral 60 Output: Urine 173 550 9068 Other: Voiding Method Indwelling Catheter Indwelling Catheter Indwelling Catheter ABP, PAP, CO, CI - Last Documented Arterial Blood Pressure 119/54 - Labs CBC & Chem 7: 01/21/18 04:30 01/21/18 04:30 Labs: Abnormal Lab Results - Last 24 Hours (Table) 01/20/18 01/20/18 01/20/18 Range/Units 04:51 16:22 19:46 RBC (4.30-5.90) m/uL Hgb (13.0-17.5) gm/dL Hct (39.0-53.0) % Plt Count (150-450) k/uL Lymphocytes # (1.0-4.8) k/uL ABG pO2 (83-108) mmHg ABG O2 Saturation (94-97) % Sodium (137-145) mmol/L Chloride (98-107) mmol/L Carbon Dioxide (22-30) mmol/L Creatinine (0.66-1.25) mg/dL Glucose (74-99) mg/dL POC Glucose (mg/dL) 244 H 230 H (75-99) mg/dL Calcium (8.4-10.2) mg/dL Phosphorus (2.5-4.5) mg/dL HSV I IgG Interpret POSITIVE H (NEGATIVE) 01/20/18 01/21/18 01/21/18 Range/Units 23:43 04:30 04:30 RBC 3.31 L (4.30-5.90) m/uL Hgb 10.2 L (13.0-17.5) gm/dL Hct 32.1 L (39.0-53.0) % Plt Count 93 L (150-450) k/uL Lymphocytes # 0.5 L (1.0-4.8) k/uL ABG pO2 (83-108) mmHg ABG O2 Saturation (94-97) % Sodium 136 L (137-145) mmol/L Chloride 109 H (98-107) mmol/L Carbon Dioxide 21 L (22-30) mmol/L Creatinine 0.60 L (0.66-1.25) mg/dL Glucose 193 H (74-99) mg/dL POC Glucose (mg/dL) 191 H (75-99) mg/dL Calcium 7.1 L (8.4-10.2) mg/dL Phosphorus 2.3 L (2.5-4.5) mg/dL HSV I IgG Interpret (NEGATIVE) 01/21/18 01/21/18 01/21/18 Range/Units 04:32 04:39 08:30 RBC (4.30-5.90) m/uL Hgb (13.0-17.5) gm/dL Hct (39.0-53.0) % Plt Count (150-450) k/uL Lymphocytes # (1.0-4.8) k/uL ABG pO2 114 H (83-108) mmHg ABG O2 Saturation 99.1 H (94-97) % Sodium (137-145) mmol/L Chloride (98-107) mmol/L Carbon Dioxide (22-30) mmol/L Creatinine (0.66-1.25) mg/dL Glucose (74-99) mg/dL POC Glucose (mg/dL) 209 H 158 H (75-99) mg/dL Calcium (8.4-10.2) mg/dL Phosphorus (2.5-4.5) mg/dL HSV I IgG Interpret (NEGATIVE) 01/21/18 01/21/18 Range/Units 08:34 11:48 RBC (4.30-5.90) m/uL Hgb (13.0-17.5) gm/dL Hct (39.0-53.0) % Plt Count (150-450) k/uL Lymphocytes # (1.0-4.8) k/uL ABG pO2 143 H (83-108) mmHg ABG O2 Saturation 99.8 H (94-97) % Sodium (137-145) mmol/L Chloride (98-107) mmol/L Carbon Dioxide (22-30) mmol/L Creatinine (0.66-1.25) mg/dL Glucose (74-99) mg/dL POC Glucose (mg/dL) 201 H (75-99) mg/dL Calcium (8.4-10.2) mg/dL Phosphorus (2.5-4.5) mg/dL HSV I IgG Interpret (NEGATIVE) Microbiology - Last 24 Hours (Table) 01/18/18 08:20 Blood Culture - Preliminary Blood No Growth after 72 hours 01/19/18 03:49 Gram Stain - Final Sputum Sputum Culture - Final Assessment and Plan Plan: Impression: 1. Altered mental status 2. Seizure disorder 3. Fever 4. Acute respiratory failure 5. History of CVA with left-sided hemiplegia Recommendation: Patient may have suffered another ischemic stroke, however, it was not visualized by the initial computed tomography scan of the brain. A repeat computed tomography scan of the brain did not show significant difference as compared to initial computed tomography scan of the brain. Patient is more responsive today as compared to yesterday. Now that the patient is extubated, he may need an MRI of the brain should his neurological status decline. It is not clear, but patient may have suffered a breakthrough seizure given his subtherapeutic Depakote level on admission. EEG was normal as mentioned above. No epileptiform discharges were noted. No seizure activities been reported. I recommend continuing Depakote IV 500 mg every 8 hours and Keppra 1500 mg IV every 12 hours as long as patient remains without seizures. Continue seizure precautions. Continue ICU management. Continue neurological checks. I will continue to follow with you. Further recommendations to follow. I performed an examination of the patient and discussed the management with the COMPOSITION PROFESSOR. I have reviewed the COMPOSITION PROFESSOR notes and agree with the findings and plan of care.
[2018-01-21 17:48] LABS: Glucose,Whole Blood 232 mg/dL (75-99)
[2018-01-21] MEDS: FENOFIBRATE 160 MG TAB PO SCH (19:42)
[2018-01-21] MEDS: DOXAZOSIN 1 MG TAB PO SCH (19:42)
[2018-01-21] MEDS: ASPIRIN 325 MG TAB PO SCH (19:42)
[2018-01-21] MEDS: ATORVASTATIN 40 MG TAB PO SCH (19:42)
--- NOTE | 2018-01-21 20:16 | PN ---
PROGRESS NOTE DATE OF SERVICE: 01/21/2018 PRESENTING COMPLAINT: Sepsis. INTERVAL HISTORY: Patient has multiple medical problems, presented with sepsis initially felt to be possibly pneumonia. The did not want a lumbar puncture. The patient has been on antibiotics. Patient was extubated this morning, on a BiPAP. I saw him, able to follow some simple commands. Fevers have been coming down. Off the drips except for IV fluids. REVIEW OF SYSTEMS: Cannot be done, as patient is rather tired and exhausted. CURRENT MEDICATIONS: Reviewed that include: 1. IV Zosyn. 2. Vancomycin and. 3. Seizure medications. EXAMINATION: Temperature 99.8, pulse 92, respirations 18, blood pressure 133/62, pulse ox 97% on BiPAP. GENERAL APPEARANCE: Lying in bed, awake, tired-appearing with a BiPAP in place. EYES: Pupil equal. Conjunctivae normal. HEENT: External nose and ears normal. Oral cavity dry. NECK: JVD unable to assess. Neck short and thick. RESPIRATORY: Effort increased. LUNGS: Distant breath sounds. CARDIOVASCULAR: Heart sounds distant. No edema. ABDOMEN: Distended, soft. Liver, spleen not palpable. No tenderness. PSYCHIATRY: Unable to assess. NEUROLOGICAL: The patient has chronic left arm weakness 4/5 and left leg weakness 2/5 with decreased sensation. INVESTIGATIONS: White count 5.3, hemoglobin 10.2. Potassium 3.8, BUN 10, creatinine 0.6. ASSESSMENT: 1. Severe sepsis pneumonia suspected. did not want a lumbar puncture. Fevers are coming down. 2. Moderate persistent asthma with acute exacerbation. 3. Acute hypoxic respiratory failure. The patient currently on BiPAP, possibly from pneumonia. 4. Left-sided weakness from a prior stroke. 5. Diabetes mellitus type 2, chronically on insulin pump, currently uncontrolled with hyperglycemia. The patient has a allergies to multiple insulins. 6. Gastroesophageal reflux disease. 7. Hyperlipidemia. 8. Essential hypertension. 9. Memory impairment, chronic. 10.Primary osteoarthritis. 11.Hypothyroid. 12.Peripheral neuropathy secondary to diabetes. PLAN: Continue current medication and treatment plan, including antibiotics. Diet will be resumed per protocol. Care was discussed with the at the bedside. Prognosis remains guarded. MMODL / IJN: [id number] /
[2018-01-21 20:35] LABS: Glucose,Whole Blood 228 mg/dL (75-99)
[2018-01-21] MEDS: MONTELUKAST 10 MG TAB PO SCH (21:02)
--- NOTE | 2018-01-21 22:55 | PN ---
PROGRESS NOTE DATE OF SERVICE: 01/21/2018 REASON FOR FOLLOWUP: Possible aspiration pneumonia/encephalitis. INTERVAL HISTORY: The patient has been extubated this morning. He has been breathing comfortably. The patient's overall fever pattern has improved. The highest temperature was yesterday morning of 101 degrees Fahrenheit. The patient is hemodynamically stable, not on any pressor support. PHYSICAL EXAMINATION: Blood pressure 141/65 with a pulse of 92, temperature of 100. He is 100% on 2 L nasal cannula. General description is a middle-aged male lying in bed in no distress. RESPIRATORY SYSTEM: Unlabored breathing with decreased breath sounds at the bases. No wheeze. HEART: S1, S2. Regular rate and rhythm. ABDOMEN: Soft. No tenderness. EXTREMITIES: No edema of the feet. LABS: Hemoglobin is 10.2, white count 5.3, BUN of 10, creatinine 0.60. Sputum culture is currently pending. Blood culture negative. DIAGNOSTIC IMPRESSION AND PLAN: Patient with a fever and mental status changes which are multifactorial. Concern for possible encephalitis; however, his refused the LP. The patient's fever seems to respond to the vancomycin. That will be continued while waiting for oral intake to improve before switching it to oral antibiotic. Continue supportive care. MMODL / IJN: [id number] /
[2018-01-21 23:40] LABS: Glucose,Whole Blood 236 mg/dL (75-99)
[2018-01-22] MEDS: DEXAMETHASONE SOD PHOSPHATE 10 MG/ML 1 ML VIAL IV SCH ×3 (00:01→12:27)
[2018-01-22] MEDS: INSULIN ASPART 100 UNIT/ML 1 ML 10 ML VIAL SQ SCH ×6 (00:02→22:03)
[2018-01-22] MEDS: PIPERACILLIN-TAZOBACTAM 3.375 GM in DEXTROSE/WATER 1 50ML.BAG IVPB SCH ×3 (00:02→16:14)
[2018-01-22] MEDS: VALPROATE SODIUM 500 MG in SODIUM CHLORIDE 0.9% 50 ML IVPB SCH ×3 (00:14→16:13)
[2018-01-22] MEDS ORDERED: HYDROmorphone 1 MG/ML 1 ML SYRINGE IVP PRN (00:27)
[2018-01-22 04:18] LABS: Glucose,Whole Blood 239 mg/dL (75-99)
[2018-01-22 05:06] LABS: HCT 33.2 % (39.0-53.0); HGB 10.7 gm/dL (13.0-17.5); MCH 32.2 pg (25.0-35.0); MCHC 32.4 g/dL (31.0-37.0); MCV 99.6 fL (80.0-100.0); Macrocytosis Slight; Mean Platelet Volume 13.9; RBC 3.33 m/uL (4.30-5.90); RDW 15.3 % (11.5-15.5); WBC 3.1 k/uL (3.8-10.6)
[2018-01-22 05:19] LABS: Band Neutrophils % 4 %; Lymphocytes # (M) 0.65 k/uL (1.0-4.8); Monocytes # (M) 0.03 k/uL (0-1.0); Neutrophils % (M) 74 %; Nucleated Red Blood Cells 0 /100 WBC (0-0); Total Cells Counted 100
[2018-01-22 05:30] LABS: Anion Gap 8 mmol/L; Calcium 7.6 mg/dL (8.4-10.2); Carbon Dioxide 20 mmol/L (22-30); Chloride 110 mmol/L (98-107); Glucose 235 mg/dL (74-99); Sodium 138 mmol/L (137-145)
[2018-01-22] MEDS: LEVOTHYROXINE 50 MCG TAB PO SCH (05:39)
[2018-01-22 05:40] LABS: Blood Urea Nitrogen 14 mg/dL (9-20); Magnesium 2.3 mg/dL (1.6-2.3); Phosphorus 2.3 mg/dL (2.5-4.5); Potassium 5.5 mmol/L (3.5-5.1)
[2018-01-22] MEDS: IPRATROPIUM-ALBUTEROL 3 ML NEB INHALATION SCH ×5 (07:07→18:59)
--- NOTE | 2018-01-22 07:32 | P.PN ---
Subjective Progress Note Date: 01/22/18 This is a 52-year-old morbidly obese male patient with history of a CVA approximately 18 years ago and the patient has been wheelchair bound since then with left-sided hemiplegia and weakness related to the stroke. The patient also has history of coronary artery disease, history of seizure disorder maintained on multiple antiepileptic medication, history of hypertension and hyperlipidemia and congestion heart failure. The patient is also hard of hearing. Apparently this patient has been having symptoms of cough and congestion and shortness of breath and he had contacted his primary care physician and he was given antibiotics on outpatient basis. Subsequently his condition got worse and he was having fever with temperatures of 101.9 and he was also becoming more lethargic. For that reason the patient was brought into the emergency department. Initial chest x-ray on admission showed low lung volumes and cardiomegaly and right basilar infiltration. He did complain of abdominal pain. For that reason a CAT scan of the abdomen was done that showed no acute intra-abdominal process and there was evidence of hepatic steatosis and pancreatic atrophy and small left renal cyst. In fact, the lung bases did not show any significant abnormalities. The CAT scan of the brain that was done in emergency department showed no evidence of any acute intracranial hemorrhage or midline shift. There was stable moderate diffuse age-related atrophy and was treated. Overnight, the patient's condition got worse. The patient started having high-grade fever with a temperature of 105. He was also tachycardic, sinus tachycardia with a heart rate of 1:30. He was also found to be tachypneic with respiration the mid 40s and he was unresponsive to verbal stimulation. Note that he did not have any seizure activity at least no seizure activity noted by the nursing staff or by the family. At that point the patient was considered to be profoundly septic. He was intubated and was brought to the intensive care unit for further management. Overnight, the patient received a total of 3 L and he was also started on pressors and currently is on norepinephrine infusion at the rate of 5 mics per KG per minute. He is still spiking fever last temperature spike was 103.2. His antibiotic coverage included IV cefepime. Currently sedated with Diprivan. He is calm and comfortable. He is on a mechanical ventilator assist control mode at the rate of 20, tidal volume of 450, FiO2 50% and a PEEP of 5. He is chest x-ray from this morning he still showing some right basilar atelectasis/infiltrate along with cardiomegaly. The blood gases post intubation showed a pH of 7.34 with a pCO2 of 35 and a pO2 of more than 400 and based on that the FiO2 is down to 50%. His initial lactic acid level was 2.6 and dropped down to 1.8. [facility] cultures were sent and the results are still pending for now. Note that the patient was not hypoglycemic on the floor. The patient did not have any seizure activity on the floor. The patient did not have any headaches or neck stiffness on the floor. However, he was found to be quite unresponsive and he was not able to protect his airway judged by the nursing staff and for that reason he was intubated and placed on mechanical ventilator. On 01/20/2018 I'm seeing this patient for a follow-up. The patient was sedated for the past 24 hours and earlier this morning at around 8:30 he was taken off the propofol and when the process of getting this patient a sedation holiday and assessing his mental status. This will be very difficult 9 and the patient is very hard of hearing. He can only hear flow his left ear. He also has left- sided weakness and his dominant side is on the right. The patient is on a mechanical ventilator. He is an assist-control mode at the rate of 20 with a tidal volume of 450 and FiO2 of 40% and a PEEP of 5. The morning blood gases showed a pH of 7.41 with a pCO2 of 30 and pO2 of 148. CAT scan of the chest was done yesterday, and he did not show any evidence of any pneumonia and there was a large pericardial fat pad and no airspace disease or pulmonary infiltrates noted. Note that the CAT scan of the abdomen and pelvis was also negative for any infectious source. The patient continued to spike fever although of a less intensity. His most recent temperature spike was 101 at 8: 00 this morning. All of the cultures of been negative. The patient was seen by infectious disease. Recommendations was to proceed with a lumbar puncture. The patient's declined to give a consent for lumbar puncture to rule out any DOOR SLINGER infections or encephalitis. The patient is currently covered with accommodation of antibiotics and he is on a combination of IV vancomycin and IV Zosyn. The patient was taken off the pressors at 10:30 PM last night. The patient is receiving IV fluids at maintenance normal saline at the rate of 75 mL an hour. He is on IV Protonix for GI prophylaxis. He is on Lovenox for DVT prophylaxis. His insight scale insulin coverage. He is also on a combination of Keppra oral and valproic acid IV per neurology regarding his seizure disorder. EEG was done and it shows slowing of the background mostly in the center range consistent with mild encephalopathy. No seizure activity was noted. On 01/21/2018, I'm seeing this patient for a follow-up. The patient is still in the intensive care unit. The patient is still on a mechanical ventilator. He was taken off the sedation yesterday and the patient has been off Diprivan for the past 24 hours. He is requiring only Dilaudid for comfort. He is on extremely well. He is awake and following commands. He is opening his eyes. He has a decent cough. Earlier this morning he was assist-control mode of ventilation at the rate of 20 with a tidal volume of 450 and FiO2 of 40% and a PEEP of 5. The blood gases from this morning showed a pH of 7.37 with a pCO2 of 38 and pO2 of 114. The patient has some atelectatic change in the right lung base. ET tube is in a good location. No evidence of any acute pneumonia. His fever has improved and he has not spike fever over the past 12 hours. All of the cultures of been negative. He is hemodynamically stable. No other significant events overnight. The patient is potentially can extubate today. On 01/22/2018, the patient is extubated. I was able to wean him off the mechanical ventilator and extubated him to have BiPAP. Note that post extubation the patient developed signs of probably related to upper airway edema. He was managed with Vaponefrin and Decadron. He was also managed by BiPAP it's use throughout the day and overnight. This morning is on oxygen oxygen at 2 L/m nasal cannula. His breathing very comfortably. Is very hard of hearing however he communicates. He follows simple commands. He tells that he is thirsty. He is moving his extremities with some limitation knowing that he has had a previous CVA. No fever has been documented over the past 24 hours. Cultures of been all negative. His antibiotic coverage includes a combination of Zosyn and vancomycin. No chest pain. No nausea. No vomiting. No signs of any respiratory distress. Urine output is more than 40 mL an hour on an hourly basis. Objective - Vital Signs Vital signs: Vital Signs Temp 98.7 F 01/22/18 04:00 Pulse 78 01/22/18 07:21 Resp 22 01/22/18 07:00 BP 141/59 01/22/18 07:00 Pulse Ox 99 01/22/18 07:00 Intake & Output 01/21/18 01/22/18 01/22/18 18:59 06:59 18:59 Intake Total 950 890 20 Output Total 3079 1375 60 Balance -2129 -485 -40 Weight 121.9 kg Intake: IV 950 890 20 Piperacillin-Tazobactam 3 50 50 .375 gm In Dextrose/Water 1 50ml.bag @ 12.5 mls/hr IVPB Q8HR [facility] Rx#: [id number] Sodium Chloride 0.9% 1, 450 240 20 000 ml @ 50 mls/hr IV . Q20H [facility] Rx#:[id number] Valproate Sodium 1,000 mg 50 In Sodium Chloride 0.9% 50 ml @ 50 mls/hr IVPB DAILY@2100 [facility] Rx#: [id number] Vancomycin 2,000 mg In 500 Sodium Chloride 0.9% 500 ml @ 167 mls/hr IVPB Q12H [facility] Rx#:[id number] levETIRAcetam IV 1,500 mg 400 100 In Saline 1 100ml.bag @ 400 mls/hr IVPB Q12HR [facility] Rx#:[id number] Output: Urine 3079 1375 60 Other: Voiding Method Indwelling Catheter Indwelling Catheter # Voids 1 ABP, PAP, CO, CI - Last Documented Arterial Blood Pressure 119/54 - Exam Obese, comfortable awake and she is following commands and is currently extubated on 2 L of oxygen by nasal cannula. Head exam was generally normal. There was no scleral icterus or corneal arcus. Mucous membranes were moist. Neck was supple and without jugular venous distension, thyromegaly, or carotid bruits. Carotids were easily palpable bilaterally. There was no adenopathy. The patient has a short neck and the patient has an orogastric and orotracheal tube are both of them are in place. No significant secretions through the orotracheal tube. The patient has no stridor. The site is completely subsided at this point in time. Lungs were clear to auscultation and percussion, and with normal diaphragmatic excursion. No wheezes or rales were noted. Cardiac exam revealed the PMI to be normally situated and sized. The rhythm was regular and no extrasystoles were noted during several minutes of auscultation. The first and second heart sounds were normal and physiologic splitting of the second heart sound was noted. There were no murmurs, rubs, clicks, or gallops. Abdomen is obese and soft. Nontender and there is no direct tenderness hemoptysis or guarding. Organs cannot be a cardiac palpated. Examination of the extremities revealed easily palpable radial, femoral and pedal pulses. There was no cyanosis, clubbing or edema. Examination of the skin revealed no evidence of significant rashes, suspicious appearing nevi or other concerning lesions. Neurologically the patient is awake and alert. The patient has left-sided hemiplegia related to previous stroke. He is able to move his right side. He is awake and alert. No facial asymmetry. Pupils are equal and reactive to light. - Labs CBC & Chem 7: 01/22/18 04:57 01/22/18 04:57 Labs: Abnormal Lab Results - Last 24 Hours (Table) 01/20/18 01/21/18 01/21/18 Range/Units 04:51 08:30 08:34 WBC (3.8-10.6) k/uL RBC (4.30-5.90) m/uL Hgb (13.0-17.5) gm/dL Hct (39.0-53.0) % Lymphocytes # (Manual) (1.0-4.8) k/uL ABG pO2 143 H (83-108) mmHg ABG O2 Saturation 99.8 H (94-97) % Potassium (3.5-5.1) mmol/L Chloride (98-107) mmol/L Carbon Dioxide (22-30) mmol/L Glucose (74-99) mg/dL POC Glucose (mg/dL) 158 H (75-99) mg/dL Calcium (8.4-10.2) mg/dL Phosphorus (2.5-4.5) mg/dL HSV I IgG Interpret POSITIVE H (NEGATIVE) 01/21/18 01/21/18 01/21/18 Range/Units 11:48 17:45 20:33 WBC (3.8-10.6) k/uL RBC (4.30-5.90) m/uL Hgb (13.0-17.5) gm/dL Hct (39.0-53.0) % Lymphocytes # (Manual) (1.0-4.8) k/uL ABG pO2 (83-108) mmHg ABG O2 Saturation (94-97) % Potassium (3.5-5.1) mmol/L Chloride (98-107) mmol/L Carbon Dioxide (22-30) mmol/L Glucose (74-99) mg/dL POC Glucose (mg/dL) 201 H 232 H 228 H (75-99) mg/dL Calcium (8.4-10.2) mg/dL Phosphorus (2.5-4.5) mg/dL HSV I IgG Interpret (NEGATIVE) 01/21/18 01/22/18 01/22/18 Range/Units 23:39 04:16 04:57 WBC (3.8-10.6) k/uL RBC (4.30-5.90) m/uL Hgb (13.0-17.5) gm/dL Hct (39.0-53.0) % Lymphocytes # (Manual) (1.0-4.8) k/uL ABG pO2 (83-108) mmHg ABG O2 Saturation (94-97) % Potassium 5.5 H (3.5-5.1) mmol/L Chloride 110 H (98-107) mmol/L Carbon Dioxide 20 L (22-30) mmol/L Glucose 235 H (74-99) mg/dL POC Glucose (mg/dL) 236 H 239 H (75-99) mg/dL Calcium 7.6 L (8.4-10.2) mg/dL Phosphorus 2.3 L (2.5-4.5) mg/dL HSV I IgG Interpret (NEGATIVE) 01/22/18 Range/Units 04:57 WBC 3.1 L (3.8-10.6) k/uL RBC 3.33 L (4.30-5.90) m/uL Hgb 10.7 L (13.0-17.5) gm/dL Hct 33.2 L (39.0-53.0) % Lymphocytes # (Manual) 0.65 L (1.0-4.8) k/uL ABG pO2 (83-108) mmHg ABG O2 Saturation (94-97) % Potassium (3.5-5.1) mmol/L Chloride (98-107) mmol/L Carbon Dioxide (22-30) mmol/L Glucose (74-99) mg/dL POC Glucose (mg/dL) (75-99) mg/dL Calcium (8.4-10.2) mg/dL Phosphorus (2.5-4.5) mg/dL HSV I IgG Interpret (NEGATIVE) Microbiology - Last 24 Hours (Table) 01/18/18 08:20 Blood Culture - Preliminary Blood No Growth after 72 hours 01/19/18 03:49 Gram Stain - Final Sputum Sputum Culture - Final Assessment and Plan Plan: Assessment 1 altered mentation with diminished level of consciousness with a febrile episodes which was worked up and the workup is essentially negative at this point. Lumbar puncture was not done as were not able to obtain a consent from the family. Meanwhile, the fever broke and the patient is currently afebrile and antibiotics. All of the cultures are negative. Mentation is improved and is normalized and the patient is currently extubated. Neurologist on the case. CAT scan of the brain repeated yesterday and shows cerebral atrophy without any acute abnormalities. There is new sinusitis compared to the old exam. 2 acute respiratory failure secondary to above. The patient was extubated. The patient developed a post extubation stridor that was managed by the combination of Vaponefrin and Decadron. He also required noninvasive positive pressure ventilation the form of BiPAP. 3 acute febrile illness along with tachycardia and hypotension. The hypotension is recovered and the patient is still having fever. The septic workup is negative for now. All of the cultures are negative. Rule out a component of viral encephalitis. 4 obesity with a BMI 44.8 5 CVA with left-sided hemiplegia and the patient is a wheelchair-bound gentleman 6 diabetes mellitus maintained on insulin pump on outpatient basis currently off the insulin pump and the patient is on a NovoLog size scattered coverage 7 history of seizure disorder 8 hyperlipidemia 9 coronary artery disease 10 severe persistent bronchial asthma 11 hypothyroidism 12 impaired hearing Plan Pulmonary status is stable. The patient is on 2 L of oxygen by nasal cannula. Will try some oral intake and if the patient is able to pass a bedside swallow evaluation the patient will be placed back on his oral medications which includes his anticonvulsants. Meanwhile continue the same antibiotic coverage. Will still encouraged use of BiPAP overnight as the patient is obvious features of sleep breathing disorder/obstructive sleep apnea. He does have some third spacing. I've kept on the IV fluids to KVO and is producing adequate amount of urine output. The monitor the antiepileptic/anticonvulsant doses. Further recommendations are to follow. The patient may be transferred to a medical surgical floor with telemetry privileges at a later stage.
[2018-01-22 08:23] LABS: Herpes simplex I and/or II IgM 0.38 INDEX (<=0.90); Herpes simplex IgG I Ab 5.97 (< or = 0.90); Herpes simplex IgG II Ab 0.11 (< or = 0.90)
[2018-01-22] MEDS: levETIRAcetam IV 1,500 MG in SALINE 1 100ML.BAG IVPB SCH ×2 (09:01→22:02)
[2018-01-22] MEDS: PANTOPRAZOLE 40 MG/10 ML VIAL IVP SCH ×2 (09:01→22:05)
--- NOTE | 2018-01-22 10:51 | XR ---
EXAMINATION TYPE: XR chest 1V portable DATE OF EXAM: 01/22/2018 COMPARISON: 01/21/2018 INDICATION: Tube placement TECHNIQUE: Single frontal view of the chest is obtained. FINDINGS: The heart size is mildly prominent. The pulmonary vasculature is normal. Mild opacities to the right lower lung field. Correlate for atelectasis. Right-sided rib fractures ar e again evident. No pneumothorax is evident Left central venous catheter is in place with tip in the proximal superior vena cava region. IMPRESSION: 1. Mild developing right lower lobe subsegmental atelectasis.
[2018-01-22] MEDS: ATORVASTATIN 40 MG TAB PO SCH (11:38)
[2018-01-22] MEDS: FENOFIBRATE 160 MG TAB PO SCH (11:39)
[2018-01-22] MEDS: DOXAZOSIN 1 MG TAB PO SCH (11:39)
[2018-01-22] MEDS: POTASSIUM CHLORIDE ER 20 MEQ TAB.ER PO SCH (11:39)
[2018-01-22] MEDS: SERTRALINE 25 MG TAB PO SCH (11:39)
[2018-01-22] MEDS: METOCLOPRAMIDE 5 MG TAB PO SCH (11:40)
[2018-01-22] MEDS: VANCOMYCIN 2,000 MG in SODIUM CHLORIDE 0.9% 500 ML IVPB SCH ×2 (11:41→22:03)
[2018-01-22 12:00] LABS: Anion Gap 12 mmol/L; Blood Urea Nitrogen 17 mg/dL (9-20); Calcium 7.9 mg/dL (8.4-10.2); Carbon Dioxide 21 mmol/L (22-30); Chloride 108 mmol/L (98-107); Glucose 242 mg/dL (74-99); Potassium 4.2 mmol/L (3.5-5.1); Sodium 141 mmol/L (137-145)
[2018-01-22 12:06] LABS: Basophils % (A) 0 %; Eosinophils % (A) 0 %; HCT 34.3 % (39.0-53.0); HGB 11.2 gm/dL (13.0-17.5); Hypochromasia Slight; Lymphocytes # (A) 0.4 k/uL (1.0-4.8); Lymphocytes % (A) 9 %; MCH 33.2 pg (25.0-35.0); MCHC 32.8 g/dL (31.0-37.0); MCV 101.3 fL (80.0-100.0); Macrocytosis Slight; Mean Platelet Volume 7.8; Monocytes # (A) 0.2 k/uL (0-1.0); Monocytes % (A) 4 %; Neutrophils # (A) 3.7 k/uL (1.3-7.7); Neutrophils % (A) 85 %; Platelet Count 107 k/uL (150-450); RBC 3.38 m/uL (4.30-5.90); RDW 15.2 % (11.5-15.5); WBC 4.4 k/uL (3.8-10.6)
[2018-01-22] MEDS: ASPIRIN 325 MG TAB PO SCH (12:27)
[2018-01-22] MEDS: SODIUM CHLORIDE 0.9% 1,000 ML IV SCH (12:27)
[2018-01-22] MEDS: ENOXAPARIN 40 MG/0.4 ML SYRINGE SQ SCH (12:27)
[2018-01-22 12:42] LABS: Glucose,Whole Blood 279 mg/dL (75-99)
[2018-01-22 16:04] LABS: Glucose,Whole Blood 307 mg/dL (75-99)
[2018-01-22] MEDS: CALCIUM CARBONATE LIQUID 500 MG/5 ML CUP PO SCH (18:06)
[2018-01-22] MEDS: ALPRAZolam 0.25 MG TAB PO PRN ×2 (18:06→22:42)
--- NOTE | 2018-01-22 18:14 | PN ---
PROGRESS NOTE DATE OF SERVICE: 01/22/2018 PRESENTING COMPLAINT: Sepsis. INTERVAL HISTORY: This patient presented with sepsis, felt to be pneumonia. did not want a lumbar puncture. Patient is on antibiotic. Extubated yesterday. On nasal cannula. Speech Therapy is seeing the patient this morning, who currently recommends patient to be on a pureed diet. REVIEW OF SYSTEMS: Done for constitutional, cardiovascular, GI, pulmonary; relevant findings as above. CURRENT MEDICATIONS: Reviewed. They include IV Zosyn, vancomycin. PHYSICAL EXAMINATION: On examination, afebrile. Pulse 62, respiration 16, blood pressure 130/61, pulse ox 98% on 2 L. GENERAL APPEARANCE: Propped up in bed, awake. EYES: Pupils equal. Conjunctivae normal. HEENT: External appearance of nose and ears normal. Oral cavity normal. NECK: JVD unable to assess. Mass not palpable. RESPIRATORY: Effort increased. LUNGS: Distant breath sounds. CARDIOVASCULAR: Heart sounds distant. Minimal edema. ABDOMEN: Distended, soft. Liver and spleen not palpable. No tenderness. PSYCHIATRY: Answering questions appropriately. NEUROLOGICAL: Power in the left arm is 4/5, left leg 2/5 and decreased sensation, chronic. INVESTIGATIONS: White count 4.4, hemoglobin 11.2, potassium 4.2. BUN and creatinine normal. Accu-Cheks are noted. ASSESSMENT: 1. Severe sepsis, probably from pneumonia. Patient's fevers have come down. 2. Moderate persistent asthma with acute exacerbation. 3. Chronic dysphagia. Patient to be currently on a pureed diet. 4. Acute hypoxic respiratory failure, status post being on the ventilator, off the BiPAP. 5. Left-sided weakness from a prior stroke. 6. Diabetes mellitus, type 2, chronically on insulin pump, uncontrolled with hyperglycemia. 7. Gastroesophageal reflux disease. 8. Hyperlipidemia. 9. Essential hypertension. 10.Memory impairment, chronic. 11.Primary osteoarthritis. 12.Hypothyroid. 13.Peripheral neuropathy secondary to diabetes. PLAN: Continue current medication and treatment plan. Will keep the patient on a pureed diet. Potassium has come down. Will maintain aspiration precautions. Patient is on sliding scale insulin. MMODL / IJN: [id number] /
[2018-01-22 20:08] LABS: Glucose,Whole Blood 329 mg/dL (75-99)
--- NOTE | 2018-01-22 21:18 | P.PN ---
Subjective Progress Note Date: 01/22/18 Principal diagnosis: PHYSICAL EXAM: GENERAL APPEARANCE: Patient is a well-developed, male who appears to be in no acute distress. HEENT: Normocephalic, atraumatic, no obvious facial asymmetry is seen. Neck is supple with no masses felt. CARDIOVASCULAR: Regular rate and rhythm. ABDOMEN: Nontender, nondistended. Obese. EXTREMITIES: Show edema , no clubbing. NEUROLOGICAL EXAM: Patient is awake, alert and follows simple commands. Patient moves all 4 extremities on command such as wiggling fingers and toes. Extremity strength is difficult to assess due to patient's lethargy. Sensory exam is not able to be assessed due to patient lethargy. No obvious facial asymmetry noted. No tremors or seizure-like activity is seen. 01/20/2018 Patient is a 52-year-old male who is being followed by the neurology service for altered mental status. Patient had sudden onset of altered mental status and was brought to [facility] for further evaluation. Patient's states that he fell out of bed and was having difficulty breathing. does not describe any seizure-like activity but did say she noticed urinary incontinence when helping him back to bed. Patient does have history of seizure disorder and is on Keppra 1500 mg twice daily and Depakote ER 1250 mg daily in the home setting. Patient was febrile upon admission with a temp of 101.9. Patient was admitted to the hospital and went to a medical floor. Patient was found unresponsive and was intubated and transferred to the ICU. Patient continues to be intubated on mechanical ventilation in the ICU. CT of the brain on admission showed no acute intracranial hemorrhage. Follow- up CT of the brain showed no significant change from prior CT of the brain. CT of the brain did show minimal white matter changes likely chronic in nature. No acute process was noted. EEG showed mild encephalopathy. At the time of my evaluation, patient remains intubated in the ICU. Patient is not following commands for me. Staff reports occasionally he will follow commands. Staff informs me they will try to wean patient off the ventilator later today. Patient does not appear to be in any acute distress. 01/21/2018 Patient is a 52-year-old male who is being followed by the neurology service for altered mental status. Patient is now extubated and on BiPAP. Patient is following simple commands. He awakens to his name. Patient continues to be followed in the ICU. No seizure-like activity noted. At the time of my evaluation, patient appears to be in no acute distress. 01/22/2018 Patient is a 52-year-old male is being followed by the neurology service for altered mental status. Patient is extubated and on 2 L nasal cannula. Patient is much more awake and alert. Patient was transferred out of ICU onto stepdown unit. Patient is alert and conversant. Patient is hard of hearing but appropriate with answers. Patient is moving all extremities. Speech therapy saw patient and is recommending pured diet. No seizures have been witnessed or reported. At the time of my evaluation, patient's resting comfortably in bed and appears to be in no acute distress. Objective - Vital Signs Vital signs: Vital Signs Temp 97.5 F L 01/22/18 16:00 Pulse 84 01/22/18 19:07 Resp 14 01/22/18 16:00 BP 129/58 01/22/18 16:00 Pulse Ox 98 01/22/18 16:00 Intake & Output 01/22/18 01/22/18 01/23/18 06:59 18:59 06:59 Intake Total 890 700.0 Output Total 1375 985 Balance -485 -285.0 Weight 121.9 kg 121.9 kg Intake: IV 890 350.0 Piperacillin-Tazobactam 3 50 50.0 .375 gm In Dextrose/Water 1 50ml.bag @ 12.5 mls/hr IVPB Q8HR GINNY Rx#: [id number] Sodium Chloride 0.9% 1, 240 150 000 ml @ 50 mls/hr IV . Q20H GINNY Rx#:[id number] Valproate Sodium 500 mg 50 In Sodium Chloride 0.9% 50 ml @ 50 mls/hr IVPB Q8HR GINNY Rx#:[id number] Vancomycin 2,000 mg In 500 Sodium Chloride 0.9% 500 ml @ 167 mls/hr IVPB Q12H GINNY Rx#:[id number] levETIRAcetam IV 1,500 mg 100 100 In Saline 1 100ml.bag @ 400 mls/hr IVPB Q12HR GINNY Rx#:[id number] Oral 350 Output: Urine 1375 985 Other: Voiding Method Indwelling Catheter Indwelling Catheter # Voids 1 ABP, PAP, CO, CI - Last Documented Arterial Blood Pressure 119/54 - Exam PHYSICAL EXAM: GENERAL APPEARANCE: Patient is a male who appears to be in no acute distress. HEENT: Normocephalic, atraumatic, no facial asymmetry is seen. Neck is supple with no masses felt. CARDIOVASCULAR: Regular rate and rhythm. ABDOMEN: Nontender, nondistended. Obese. EXTREMITIES: Show edema but no clubbing. NEUROLOGICAL EXAM: Patient is awake, alert, and oriented 3. Speech and language are normal. Strength is 3+/5 in bilateral lower extremities and 4-/5 in bilateral upper extremities. Patient is extremely hard of hearing. Sensory exam is not reliable due to patient not understanding or hearing what is being asked of him. No obvious facial asymmetry is seen on cranial nerve testing. Pupils are unequal with left pupil 4 mm and right pupil 2 mm. No tremors or seizure-like activity noted. - Labs CBC & Chem 7: 01/22/18 11:25 01/22/18 11:25 Labs: Abnormal Lab Results - Last 24 Hours (Table) 01/20/18 01/21/18 01/22/18 Range/Units 04:51 23:39 04:16 WBC (3.8-10.6) k/uL RBC (4.30-5.90) m/uL Hgb (13.0-17.5) gm/dL Hct (39.0-53.0) % MCV (80.0-100.0) fL Plt Count (150-450) k/uL Lymphocytes # (1.0-4.8) k/uL Lymphocytes # (Manual) (1.0-4.8) k/uL Potassium (3.5-5.1) mmol/L Chloride (98-107) mmol/L Carbon Dioxide (22-30) mmol/L Glucose (74-99) mg/dL POC Glucose (mg/dL) 236 H 239 H (75-99) mg/dL Calcium (8.4-10.2) mg/dL Phosphorus (2.5-4.5) mg/dL HSV I IgG Ab 5.97 H (< or = 0.90) 01/22/18 01/22/18 01/22/18 Range/Units 04:57 04:57 11:25 WBC 3.1 L (3.8-10.6) k/uL RBC 3.33 L 3.38 L (4.30-5.90) m/uL Hgb 10.7 L 11.2 L (13.0-17.5) gm/dL Hct 33.2 L 34.3 L (39.0-53.0) % MCV 101.3 H (80.0-100.0) fL Plt Count 107 L (150-450) k/uL Lymphocytes # 0.4 L (1.0-4.8) k/uL Lymphocytes # (Manual) 0.65 L (1.0-4.8) k/uL Potassium 5.5 H (3.5-5.1) mmol/L Chloride 110 H (98-107) mmol/L Carbon Dioxide 20 L (22-30) mmol/L Glucose 235 H (74-99) mg/dL POC Glucose (mg/dL) (75-99) mg/dL Calcium 7.6 L (8.4-10.2) mg/dL Phosphorus 2.3 L (2.5-4.5) mg/dL HSV I IgG Ab (< or = 0.90) 01/22/18 01/22/18 01/22/18 Range/Units 11:25 12:40 16:02 WBC (3.8-10.6) k/uL RBC (4.30-5.90) m/uL Hgb (13.0-17.5) gm/dL Hct (39.0-53.0) % MCV (80.0-100.0) fL Plt Count (150-450) k/uL Lymphocytes # (1.0-4.8) k/uL Lymphocytes # (Manual) (1.0-4.8) k/uL Potassium (3.5-5.1) mmol/L Chloride 108 H (98-107) mmol/L Carbon Dioxide 21 L (22-30) mmol/L Glucose 242 H (74-99) mg/dL POC Glucose (mg/dL) 279 H 307 H (75-99) mg/dL Calcium 7.9 L (8.4-10.2) mg/dL Phosphorus (2.5-4.5) mg/dL HSV I IgG Ab (< or = 0.90) 01/22/18 Range/Units 20:06 WBC (3.8-10.6) k/uL RBC (4.30-5.90) m/uL Hgb (13.0-17.5) gm/dL Hct (39.0-53.0) % MCV (80.0-100.0) fL Plt Count (150-450) k/uL Lymphocytes # (1.0-4.8) k/uL Lymphocytes # (Manual) (1.0-4.8) k/uL Potassium (3.5-5.1) mmol/L Chloride (98-107) mmol/L Carbon Dioxide (22-30) mmol/L Glucose (74-99) mg/dL POC Glucose (mg/dL) 329 H (75-99) mg/dL Calcium (8.4-10.2) mg/dL Phosphorus (2.5-4.5) mg/dL HSV I IgG Ab (< or = 0.90) Microbiology - Last 24 Hours (Table) 01/18/18 08:20 Blood Culture - Preliminary Blood No Growth after 96 hours Assessment and Plan Plan: Impression: 1. Altered mental status 2. Seizure disorder 3. Fever 4. Acute respiratory failure 5. History of CVA with left-sided hemiplegia Recommendation: Patient may have suffered another ischemic stroke, however, it was not visualized by the initial computed tomography scan of the brain. A repeat computed tomography scan of the brain did not show significant difference as compared to initial computed tomography scan of the brain. Patient is more responsive today as compared to yesterday. Now that the patient is extubated, I will order an MRI of the brain. It is not clear, but patient may have suffered a breakthrough seizure given his subtherapeutic Depakote level on admission. EEG was normal as mentioned above. No epileptiform discharges were noted. No seizure activities been reported. I recommend continuing Depakote IV 500 mg every 8 hours and Keppra 1500 mg IV every 12 hours as long as patient remains without seizures. Continue seizure precautions. Continue medical management. Continue neurological checks. I will continue to follow with you. Further recommendations to follow. I performed an examination of the patient and discussed the management with the QUALITY ASSURANCE CALIBRATOR. I have reviewed the QUALITY ASSURANCE CALIBRATOR notes and agree with the findings and plan of care.
[2018-01-22] MEDS: MELATONIN 5 MG TABLET PO SCH (22:04)
[2018-01-22] MEDS: MONTELUKAST 10 MG TAB PO SCH (22:04)
--- NOTE | 2018-01-22 23:50 | PN ---
PROGRESS NOTE DATE OF SERVICE: 01/22/2018 REASON FOR FOLLOWUP: Possible aspiration pneumonia. INTERVAL HISTORY: The patient is currently afebrile. He is more awake and alert. He is breathing comfortably. No chest pain. Occasional cough. No abdominal pain and no diarrhea. EXAMINATION: Blood pressure is 129/58 with a pulse of 82, temperature 97.5. He is 98% on room air,. General description is a middle-aged male lying in bed in no distress. RESPIRATORY SYSTEM: Unlabored breathing. Clear to auscultation anteriorly. HEART: S1, S2. Regular rate and rhythm. ABDOMEN: Soft. No tenderness. EXTREMITIES: No edema of the feet. LABS: Hemoglobin 11.2, white count of 4.4. BUN of 17, creatinine 0.671. Sputum culture so far negative. DIAGNOSTIC IMPRESSION AND PLAN: Patient admitted to the hospital with weakness and lethargy and the patient with acute respiratory failure, multifactorial, with possible component of possible aspiration pneumonia. The patient is currently covered with Zosyn that will be continued. Transition to oral antibiotic, as no resistant gram-positive has been grown. Vancomycin will be discontinued to decrease risk of nephrotoxicity. Continue with supportive care. MMODL / IJN: [id number] /
[2018-01-22 23:51] LABS: Glucose,Whole Blood 316 mg/dL (75-99)
[2018-01-22] MEDS ORDERED: FUROSEMIDE 10 MG/ML 4 ML VIAL IV STA (23:52)
[2018-01-23] MEDS: INSULIN ASPART 100 UNIT/ML 1 ML 10 ML VIAL SQ SCH ×6 (00:19→23:06)
[2018-01-23] MEDS: PIPERACILLIN-TAZOBACTAM 3.375 GM in DEXTROSE/WATER 1 50ML.BAG IVPB SCH ×2 (00:19→09:23)
[2018-01-23] MEDS: CALCIUM CARBONATE LIQUID 500 MG/5 ML CUP PO SCH ×4 (02:49→18:02)
[2018-01-23 04:37] LABS: Glucose,Whole Blood 230 mg/dL (75-99)
[2018-01-23] MEDS: LEVOTHYROXINE 50 MCG TAB PO SCH (06:34)
[2018-01-23] MEDS: SODIUM CHLORIDE 0.9% 1,000 ML IV SCH (06:40)
[2018-01-23] MEDS: IPRATROPIUM-ALBUTEROL 3 ML NEB INHALATION SCH ×4 (08:11→20:35)
[2018-01-23] MEDS ORDERED: VANCOMYCIN TROUGH DUE 1 EACH MISC MISCELLANE ONE (09:00)
[2018-01-23] MEDS: ENOXAPARIN 40 MG/0.4 ML SYRINGE SQ SCH (09:19)
[2018-01-23] MEDS: ASPIRIN 325 MG TAB PO SCH (09:20)
[2018-01-23] MEDS: ATORVASTATIN 40 MG TAB PO SCH (09:20)
[2018-01-23] MEDS: METOCLOPRAMIDE 5 MG TAB PO SCH (09:21)
[2018-01-23] MEDS: FENOFIBRATE 160 MG TAB PO SCH (09:21)
[2018-01-23] MEDS: DOXAZOSIN 1 MG TAB PO SCH (09:21)
[2018-01-23] MEDS: PANTOPRAZOLE 40 MG/10 ML VIAL IVP SCH (09:22)
[2018-01-23] MEDS: SERTRALINE 25 MG TAB PO SCH (09:22)
[2018-01-23] MEDS: POTASSIUM CHLORIDE ER 20 MEQ TAB.ER PO SCH (09:22)
[2018-01-23] MEDS: levETIRAcetam IV 1,500 MG in SALINE 1 100ML.BAG IVPB SCH (09:24)
[2018-01-23 09:42] LABS: Basophils % (A) 0 %; Eosinophils # (A) 0.1 k/uL (0-0.7); Eosinophils % (A) 1 %; HGB 10.2 gm/dL (13.0-17.5); Lymphocytes # (A) 0.8 k/uL (1.0-4.8); Lymphocytes % (A) 18 %; MCH 31.1 pg (25.0-35.0); MCHC 31.8 g/dL (31.0-37.0); MCV 97.7 fL (80.0-100.0); Mean Platelet Volume 7.6; Monocytes # (A) 0.2 k/uL (0-1.0); Monocytes % (A) 5 %; Neutrophils # (A) 3.2 k/uL (1.3-7.7); Neutrophils % (A) 73 %; Platelet Count 102 k/uL (150-450); RBC 3.28 m/uL (4.30-5.90); WBC 4.4 k/uL (3.8-10.6)
[2018-01-23] MEDS: VALPROATE SODIUM 500 MG in SODIUM CHLORIDE 0.9% 50 ML IVPB SCH (09:49)
--- NOTE | 2018-01-23 09:49 | P.PN ---
Subjective Progress Note Date: 01/23/18 Principal diagnosis: Altered mental status of unclear etiology. Objective - Vital Signs Vital signs: Vital Signs Temp 98.5 F 01/23/18 04:00 Pulse 80 01/23/18 08:28 Resp 20 01/23/18 04:00 BP 119/58 01/23/18 04:00 Pulse Ox 98 01/23/18 04:00 Intake & Output 01/22/18 01/23/18 01/23/18 18:59 06:59 18:59 Intake Total 700.0 790 Output Total 985 3100 Balance -285.0 -2310 Weight 121.9 kg 129.4 kg Intake: IV 350.0 550 Piperacillin-Tazobactam 3 50.0 50 .375 gm In Dextrose/Water 1 50ml.bag @ 12.5 mls/hr IVPB Q8HR GINNY Rx#: [id number] Sodium Chloride 0.9% 1, 150 000 ml @ 50 mls/hr IV . Q20H GINNY Rx#:[id number] Valproate Sodium 500 mg 50 In Sodium Chloride 0.9% 50 ml @ 50 mls/hr IVPB Q8HR GINNY Rx#:[id number] Vancomycin 2,000 mg In 500 Sodium Chloride 0.9% 500 ml @ 167 mls/hr IVPB Q12H GINNY Rx#:[id number] levETIRAcetam IV 1,500 mg 100 In Saline 1 100ml.bag @ 400 mls/hr IVPB Q12HR GINNY Rx#:[id number] Oral 350 240 Output: Urine 985 3100 Uretheral ([place]) 2200 Other: Voiding Method Indwelling Catheter Indwelling Catheter ABP, PAP, CO, CI - Last Documented Arterial Blood Pressure 119/54 - Labs CBC & Chem 7: 01/22/18 11:25 01/22/18 11:25 Labs: Abnormal Lab Results - Last 24 Hours (Table) 01/22/18 01/22/18 01/22/18 Range/Units 11:25 11:25 12:40 RBC 3.38 L (4.30-5.90) m/uL Hgb 11.2 L (13.0-17.5) gm/dL Hct 34.3 L (39.0-53.0) % MCV 101.3 H (80.0-100.0) fL Plt Count 107 L (150-450) k/uL Lymphocytes # 0.4 L (1.0-4.8) k/uL Chloride 108 H (98-107) mmol/L Carbon Dioxide 21 L (22-30) mmol/L Glucose 242 H (74-99) mg/dL POC Glucose (mg/dL) 279 H (75-99) mg/dL Calcium 7.9 L (8.4-10.2) mg/dL 01/22/18 01/22/18 01/22/18 Range/Units 16:02 20:06 23:49 RBC (4.30-5.90) m/uL Hgb (13.0-17.5) gm/dL Hct (39.0-53.0) % MCV (80.0-100.0) fL Plt Count (150-450) k/uL Lymphocytes # (1.0-4.8) k/uL Chloride (98-107) mmol/L Carbon Dioxide (22-30) mmol/L Glucose (74-99) mg/dL POC Glucose (mg/dL) 307 H 329 H 316 H (75-99) mg/dL Calcium (8.4-10.2) mg/dL 01/23/18 Range/Units 04:35 RBC (4.30-5.90) m/uL Hgb (13.0-17.5) gm/dL Hct (39.0-53.0) % MCV (80.0-100.0) fL Plt Count (150-450) k/uL Lymphocytes # (1.0-4.8) k/uL Chloride (98-107) mmol/L Carbon Dioxide (22-30) mmol/L Glucose (74-99) mg/dL POC Glucose (mg/dL) 230 H (75-99) mg/dL Calcium (8.4-10.2) mg/dL Microbiology - Last 24 Hours (Table) 01/18/18 08:20 Blood Culture - Preliminary Blood No Growth after 96 hours Assessment and Plan Assessment: Assessment 1 altered mentation with diminished level of consciousness with a febrile episodes which was worked up and the workup is essentially negative at this point. Lumbar puncture was not done as were not able to obtain a consent from the family. Meanwhile, the fever broke and the patient is currently afebrile and antibiotics. All of the cultures are negative. Mentation is improved and is normalized and the patient is currently extubated. Neurologist on the case. CAT scan of the brain repeated yesterday and shows cerebral atrophy without any acute abnormalities. There is new sinusitis compared to the old exam. He remains on Zosyn. 2 acute respiratory failure secondary to above. The patient was extubated. The patient developed a post extubation stridor that was managed by the combination of Vaponefrin and Decadron. He also required noninvasive positive pressure ventilation the form of BiPAP. Recovered and currently maintaining good O2 saturations in the upper 90s on 2 L/m per nasal cannula. 3 acute febrile illness along with tachycardia and hypotension. The hypotension is recovered. The septic workup is negative for now. All of the cultures are negative. Rule out a component of viral encephalitis. 4 obesity with a BMI 44.8 5 CVA with left-sided hemiplegia and the patient is a wheelchair-bound gentleman 6 diabetes mellitus maintained on insulin pump on outpatient basis currently off the insulin pump and the patient is on a NovoLog size scattered coverage 7 history of seizure disorder 8 hyperlipidemia 9 coronary artery disease 10 severe persistent bronchial asthma 11 hypothyroidism 12 impaired hearing Plan The patient was seen and evaluated by Dr. Thompson. The patient continues to improve daily. Blood, urine and sputum cultures all negative. No evidence of stridor. We'll discontinue the Decadron. Continue Zosyn for now. Continue bronchodilators. Convert antiseizure medications back to oral per neurology. Increase his activity as tolerated. Lovenox for DVT prophylaxis. We'll continue to follow. I, the cosigning physician, performed a history & physical examination of the patient. Lungs sounds with few scattered rhonchi. Maintaining good O2 saturations in the 90s on 2 L/m per nasal cannula. I discussed the assessment and plan of care with my nurse practitioner, Sohpie Reich. I attest to the above note as dictated by her.
[2018-01-23 09:55] LABS: Magnesium 2.2 mg/dL (1.6-2.3); Phosphorus 1.9 mg/dL (2.5-4.5)
[2018-01-23 11:59] LABS: Glucose,Whole Blood 303 mg/dL (75-99)
--- NOTE | 2018-01-23 12:57 | PN ---
PROGRESS NOTE DATE OF SERVICE: 01/23/2018. He has been refusing his BiPAP. He is sleepy but arousable. Follows simple commands. He does not seem to be in respiratory distress. On physical examination: Respiratory rate is 18 with shallow breaths. Pulse rate of 72, temperature 97.6, blood pressure is 119/58. HEENT reveals pupils that are equal. He has a short thick neck. Chest reveals decreased breath sounds. No wheeze. Cardiovascular system reveals S1, S2. Abdomen is soft. There is 1+ to 2+ pedal edema. IMPRESSION: At this time is: 1. Metabolic encephalopathy. 2. Acute respiratory failure. 3. Obesity with obesity hypoventilation. 4. Diabetes mellitus. Continue bronchodilators. Encouraged to wear BiPAP. Continue GI and DVT prophylaxis. Continue antibiotics per ID. His prognosis at this time is guarded. MMODL / IJN: [id number] /
--- NOTE | 2018-01-23 13:33 | P.PN ---
Subjective Progress Note Date: 01/23/18 01/20/2018 Patient is a 52-year-old male who is being followed by the neurology service for altered mental status. Patient had sudden onset of altered mental status and was brought to [facility] for further evaluation. Patient's states that he fell out of bed and was having difficulty breathing. does not describe any seizure-like activity but did say she noticed urinary incontinence when helping him back to bed. Patient does have history of seizure disorder and is on Keppra 1500 mg twice daily and Depakote ER 1250 mg daily in the home setting. Patient was febrile upon admission with a temp of 101.9. Patient was admitted to the hospital and went to a medical floor. Patient was found unresponsive and was intubated and transferred to the ICU. Patient continues to be intubated on mechanical ventilation in the ICU. CT of the brain on admission showed no acute intracranial hemorrhage. Follow- up CT of the brain showed no significant change from prior CT of the brain. CT of the brain did show minimal white matter changes likely chronic in nature. No acute process was noted. EEG showed mild encephalopathy. At the time of my evaluation, patient remains intubated in the ICU. Patient is not following commands for me. Staff reports occasionally he will follow commands. Staff informs me they will try to wean patient off the ventilator later today. Patient does not appear to be in any acute distress. 01/21/2018 Patient is a 52-year-old male who is being followed by the neurology service for altered mental status. Patient is now extubated and on BiPAP. Patient is following simple commands. He awakens to his name. Patient continues to be followed in the ICU. No seizure-like activity noted. At the time of my evaluation, patient appears to be in no acute distress. 01/22/2018 Patient is a 52-year-old male is being followed by the neurology service for altered mental status. Patient is extubated and on 2 L nasal cannula. Patient is much more awake and alert. Patient was transferred out of ICU onto stepdown unit. Patient is alert and conversant. Patient is hard of hearing but appropriate with answers. Patient is moving all extremities. Speech therapy saw patient and is recommending pured diet. No seizures have been witnessed or reported. At the time of my evaluation, patient's resting comfortably in bed and appears to be in no acute distress. 01/23/2018 Patient is a pleasant 52-year-old male who is being followed by the neurology service for altered mental status and seizure. No seizure activity is then witnessed or reported since admission. Patient is more awake and alert today. He is conversing appropriately. Patient is hard of hearing. Patient has left-sided weakness due to previous stroke. Patient is wheelchair bound in the home setting. is concerned she may not be able to care for him in his current condition. I reassured her that we will try to work with him with physical therapy and he may need a short inpatient rehab stay. Patient agrees to have an MRI done so it will be ordered. Patient's diet has progressed to regular diet. I will change his IV antiepileptic medication to oral. At the time of my evaluation, patient's resting comfortably in bed and appears to be in no acute distress. is at the bedside. Objective - Vital Signs Vital signs: Vital Signs Temp 97.6 F 01/23/18 09:00 Pulse 76 01/23/18 11:41 Resp 18 01/23/18 09:00 BP 119/58 01/23/18 04:00 Pulse Ox 98 01/23/18 04:00 Intake & Output 01/22/18 01/23/18 01/23/18 18:59 06:59 18:59 Intake Total 700.0 790 Output Total 985 3100 Balance -285.0 -2310 Weight 121.9 kg 129.4 kg Intake: IV 350.0 550 Piperacillin-Tazobactam 3 50.0 50 .375 gm In Dextrose/Water 1 50ml.bag @ 12.5 mls/hr IVPB Q8HR GINNY Rx#: [id number] Sodium Chloride 0.9% 1, 150 000 ml @ 50 mls/hr IV . Q20H GINNY Rx#:[id number] Valproate Sodium 500 mg 50 In Sodium Chloride 0.9% 50 ml @ 50 mls/hr IVPB Q8HR GINNY Rx#:[id number] Vancomycin 2,000 mg In 500 Sodium Chloride 0.9% 500 ml @ 167 mls/hr IVPB Q12H GINNY Rx#:[id number] levETIRAcetam IV 1,500 mg 100 In Saline 1 100ml.bag @ 400 mls/hr IVPB Q12HR GINNY Rx#:[id number] Oral 350 240 Output: Urine 985 3100 Uretheral ([place]) 2200 Other: Voiding Method Indwelling Catheter Indwelling Catheter Indwelling Catheter ABP, PAP, CO, CI - Last Documented Arterial Blood Pressure 119/54 - Exam PHYSICAL EXAM: GENERAL APPEARANCE: Patient is a male who appears to be in no acute distress. HEENT: Normocephalic, atraumatic, no facial asymmetry is seen. Neck is supple with no masses felt. CARDIOVASCULAR: Regular rate and rhythm. ABDOMEN: Nontender, nondistended. Obese. EXTREMITIES: Show edema but no clubbing. NEUROLOGICAL EXAM: Patient is awake, alert, and oriented 3. Speech and language are normal. Strength is 3+/5 in bilateral lower extremities and 4-/5 in bilateral upper extremities. Patient is extremely hard of hearing. Sensory exam is not reliable due to patient not understanding or hearing what is being asked of him. No obvious facial asymmetry is seen on cranial nerve testing. Pupils are unequal with left pupil 3 mm and right pupil 2 mm. No tremors or seizure-like activity noted. - Labs CBC & Chem 7: 01/23/18 09:22 01/22/18 11:25 Labs: Abnormal Lab Results - Last 24 Hours (Table) 01/22/18 01/22/18 01/22/18 Range/Units 16:02 20:06 23:49 RBC (4.30-5.90) m/uL Hgb (13.0-17.5) gm/dL Hct (39.0-53.0) % Plt Count (150-450) k/uL Lymphocytes # (1.0-4.8) k/uL POC Glucose (mg/dL) 307 H 329 H 316 H (75-99) mg/dL Phosphorus (2.5-4.5) mg/dL 01/23/18 01/23/18 01/23/18 Range/Units 04:35 09:22 09:22 RBC 3.28 L (4.30-5.90) m/uL Hgb 10.2 L (13.0-17.5) gm/dL Hct 32.0 L (39.0-53.0) % Plt Count 102 L (150-450) k/uL Lymphocytes # 0.8 L (1.0-4.8) k/uL POC Glucose (mg/dL) 230 H (75-99) mg/dL Phosphorus 1.9 L (2.5-4.5) mg/dL 01/23/18 Range/Units 11:52 RBC (4.30-5.90) m/uL Hgb (13.0-17.5) gm/dL Hct (39.0-53.0) % Plt Count (150-450) k/uL Lymphocytes # (1.0-4.8) k/uL POC Glucose (mg/dL) 303 H (75-99) mg/dL Phosphorus (2.5-4.5) mg/dL Microbiology - Last 24 Hours (Table) 01/18/18 08:20 Blood Culture - Preliminary Blood No Growth after 120 hours Assessment and Plan Plan: Impression: 1. Altered mental status, resolving 2. Seizure disorder 3. Fever 4. Acute respiratory failure 5. History of CVA with left-sided hemiplegia Recommendation: Patient may have suffered another ischemic stroke, however, it was not visualized by the initial computed tomography scan of the brain. A repeat computed tomography scan of the brain did not show significant difference as compared to initial computed tomography scan of the brain. Patient is more responsive today as compared to yesterday. Now that the patient is extubated, I will order an MRI of the brain. It is not clear, but patient may have suffered a breakthrough seizure given his subtherapeutic Depakote level on admission. Certainly cerebrovascular accident is in the differential diagnosis. Continue aspirin 325 mg daily. EEG was normal as mentioned above. No epileptiform discharges were noted. No seizure activities been reported. I recommend continuing Depakote IV 500 mg every 8 hours and Keppra 1500 mg IV every 12 hours as long as patient remains without seizures. I will switch antiepileptic medication to oral form. Even though Depakote level is subtherapeutic, patient is not having any seizure activity. Depakote has been increased since admission. I will get a Depakote level in the a.m. Further adjustment of this medication can be done as an outpatient unless seizure activity occurs. Patient is now taking regular diet. Continue seizure precautions. Continue medical management. Continue neurological checks. I will continue to follow with you. Further recommendations to follow after MRI. I performed an examination of the patient and discussed the management with the FEED MANAGER. I have reviewed the FEED MANAGER notes and agree with the findings and plan of care.
--- NOTE | 2018-01-23 16:30 | PN ---
PROGRESS NOTE DATE OF SERVICE: 01/23/2018 PRESENTING COMPLAINT: Sepsis. INTERVAL HISTORY: Patient presented with sepsis felt to be pneumonia. His did not want him to have a lumbar puncture. Patient is doing better. Did tolerate a regular diet. Slight cough is present. Overall doing much better. Lying in bed. REVIEW OF SYSTEMS: Done for constitutional, cardiovascular, GI, pulmonary; relevant findings as above. The patient does feel weak and tired. CURRENT MEDICATIONS: Reviewed. They include IV Zosyn. PHYSICAL EXAMINATION: Temperature 97.6, pulse 72, respiration 18, blood pressure 124/70, pulse ox 95% on 2 L. GENERAL APPEARANCE: Lying in bed, awake. EYES: Pupils equal. Conjunctivae normal. HEENT: External appearance of nose and ears normal. Oral cavity normal. Decreased hearing. NECK: JVD unable to assess. Mass not palpable. RESPIRATORY: Effort increased. LUNGS: Distant breath sounds. CARDIOVASCULAR: Heart sounds distant. No edema. ABDOMEN: Distended, soft. Liver and spleen not palpable. PSYCHIATRY: Answering questions appropriately. NEUROLOGICAL: Power in the left arm is 4/5, left leg 2/5 and chronically decreased sensation. INVESTIGATIONS: White count 4.4, hemoglobin 10.2, phosphorus 1.9. ASSESSMENT: 1. Severe sepsis, probably from pneumonia, improved. Patient has been afebrile. 2. Moderate persistent asthma with acute exacerbation, much improved. 3. Chronic dysphagia. Patient has been on a pureed diet. 4. Acute hypoxic respiratory failure, status post being on a ventilator. Patient does not want to use the BiPAP anymore. 5. 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 6. Diabetes mellitus, type 2, chronically on insulin pump, uncontrolled with hyp glycemia. 7. Gastroesophageal reflux disease. 8. Hyperlipidemia. 9. Essential hypertension. 10.Memory impairment, chronic. 11.Primary osteoarthritis. 12.Hypothyroid. 13.Peripheral neuropathy secondary to diabetes. PLAN: Care was discussed with the patient's and son Aniket at the bedside. Overall patient has done better, though overall prognosis is guarded. PT/OT is on the case. Looking at possible inpatient rehab. All patient's cultures are negative. Will switch the patient over to p.o. Augmentin. MMODL / IJN: [id number] /
[2018-01-23 17:28] LABS: Glucose,Whole Blood 276 mg/dL (75-99)
[2018-01-23] MEDS: DIVALPROEX 500 MG TABLET.DR PO SCH ×2 (18:01→22:37)
[2018-01-23] MEDS: ALPRAZolam 0.25 MG TAB PO PRN (18:19)
[2018-01-23] MEDS: PANTOPRAZOLE 40 MG TABLET PO SCH (18:20)
[2018-01-23] MEDS ORDERED: HYDROmorphone 2 MG TAB PO PRN (21:02)
[2018-01-23 21:14] LABS: Glucose,Whole Blood 243 mg/dL (75-99)
[2018-01-23] MEDS: AMOXIC-POT CLAV 875-125MG 1 EACH TAB PO SCH (22:36)
[2018-01-23] MEDS: levETIRAcetam 500 MG TAB PO SCH (22:36)
[2018-01-23] MEDS: MELATONIN 5 MG TABLET PO SCH (22:37)
[2018-01-23] MEDS: MONTELUKAST 10 MG TAB PO SCH (22:37)
[2018-01-24 06:28] LABS: Glucose,Whole Blood 225 mg/dL (75-99)
--- NOTE | 2018-01-24 06:28 | PN ---
PROGRESS NOTE DATE OF SERVICE: 01/23/2018 REASON FOR FOLLOWUP: Possible aspiration pneumonia. INTERVAL HISTORY: The patient has been afebrile. He has been breathing comfortably. did mention she was having some coughing spells when she was trying to feed him some pudding. No nausea, vomiting, or any diarrhea. EXAMINATION: Blood pressure is 135/65 with a pulse of 72, temperature 97.6. He is 93% on 2 L nasal cannula. General description is an elderly male lying in bed in no distress. Respiratory system: Unlabored breathing with decreased breath sounds in the bases. No wheeze. Heart S1, S2. Regular rate and rhythm. Abdomen soft, no tenderness. LABS: Hemoglobin is 10.2, white count 4.4. Sputum culture has been negative. Blood culture so far negative. DIAGNOSTIC IMPRESSION AND PLAN: Patient with fever, source is likely multifactorial, possible component of pneumonia. The patient seemed to have shown clinical improvement. Currently on Augmentin that will continue for another 5-7 days to finish course of therapy. had multiple questions that were answered. MMODL / IJN: [id number] /
[2018-01-24 06:41] LABS: Basophils % (A) 0 %; Eosinophils # (A) 0.1 k/uL (0-0.7); Eosinophils % (A) 2 %; HCT 32.5 % (39.0-53.0); HGB 10.6 gm/dL (13.0-17.5); Lymphocytes # (A) 0.8 k/uL (1.0-4.8); Lymphocytes % (A) 18 %; MCHC 32.5 g/dL (31.0-37.0); MCV 98.6 fL (80.0-100.0); Macrocytosis Slight; Mean Platelet Volume 7.1; Monocytes # (A) 0.2 k/uL (0-1.0); Monocytes % (A) 5 %; Neutrophils # (A) 3.4 k/uL (1.3-7.7); Neutrophils % (A) 73 %; Platelet Count 123 k/uL (150-450); RDW 15.3 % (11.5-15.5); WBC 4.6 k/uL (3.8-10.6)
[2018-01-24] MEDS: CALCIUM CARBONATE LIQUID 500 MG/5 ML CUP PO SCH ×3 (06:46→17:17)
[2018-01-24] MEDS: INSULIN ASPART 100 UNIT/ML 1 ML 10 ML VIAL SQ SCH ×4 (06:46→21:52)
[2018-01-24] MEDS: SODIUM CHLORIDE 0.9% 1,000 ML IV SCH (06:46)
[2018-01-24] MEDS: PANTOPRAZOLE 40 MG TABLET PO SCH ×2 (06:46→17:18)
[2018-01-24] MEDS: LEVOTHYROXINE 50 MCG TAB PO SCH (06:46)
[2018-01-24 06:51] LABS: Phosphorus 3.1 mg/dL (2.5-4.5)
[2018-01-24] MEDS: IPRATROPIUM-ALBUTEROL 3 ML NEB INHALATION SCH ×4 (07:57→20:31)
[2018-01-24] MEDS: levETIRAcetam 500 MG TAB PO SCH ×2 (07:59→20:30)
[2018-01-24] MEDS: ATORVASTATIN 40 MG TAB PO SCH (08:00)
[2018-01-24] MEDS: ENOXAPARIN 40 MG/0.4 ML SYRINGE SQ SCH (08:00)
[2018-01-24] MEDS: DOXAZOSIN 1 MG TAB PO SCH (08:00)
[2018-01-24] MEDS: AMOXIC-POT CLAV 875-125MG 1 EACH TAB PO SCH ×2 (08:00→20:30)
[2018-01-24] MEDS: ASPIRIN 325 MG TAB PO SCH (08:01)
[2018-01-24] MEDS: DIVALPROEX 500 MG TABLET.DR PO SCH ×2 (08:01→17:17)
[2018-01-24] MEDS: POTASSIUM CHLORIDE ER 20 MEQ TAB.ER PO SCH (08:01)
[2018-01-24] MEDS: SERTRALINE 25 MG TAB PO SCH (08:01)
[2018-01-24] MEDS: METOCLOPRAMIDE 5 MG TAB PO SCH (08:01)
[2018-01-24] MEDS: FENOFIBRATE 160 MG TAB PO SCH (08:02)
[2018-01-24] MEDS: ONDANSETRON 4 MG/2 ML VIAL IVP PRN (08:25)
[2018-01-24 08:44] LABS: Calcium 7.6 mg/dL (8.4-10.2); Potassium 3.1 mmol/L (3.5-5.1)
[2018-01-24 11:30] LABS: Glucose,Whole Blood 230 mg/dL (75-99)
[2018-01-24] MEDS ORDERED: Potassium Replacement Protocol 1 EACH MISC MISCELLANE PRN (11:47)
--- NOTE | 2018-01-24 13:06 | P.PN ---
Subjective Progress Note Date: 01/24/18 01/20/2018 Patient is a 52-year-old male who is being followed by the neurology service for altered mental status. Patient had sudden onset of altered mental status and was brought to [facility] for further evaluation. Patient's states that he fell out of bed and was having difficulty breathing. does not describe any seizure-like activity but did say she noticed urinary incontinence when helping him back to bed. Patient does have history of seizure disorder and is on Keppra 1500 mg twice daily and Depakote ER 1250 mg daily in the home setting. Patient was febrile upon admission with a temp of 101.9. Patient was admitted to the hospital and went to a medical floor. Patient was found unresponsive and was intubated and transferred to the ICU. Patient continues to be intubated on mechanical ventilation in the ICU. CT of the brain on admission showed no acute intracranial hemorrhage. Follow- up CT of the brain showed no significant change from prior CT of the brain. CT of the brain did show minimal white matter changes likely chronic in nature. No acute process was noted. EEG showed mild encephalopathy. At the time of my evaluation, patient remains intubated in the ICU. Patient is not following commands for me. Staff reports occasionally he will follow commands. Staff informs me they will try to wean patient off the ventilator later today. Patient does not appear to be in any acute distress. 01/21/2018 Patient is a 52-year-old male who is being followed by the neurology service for altered mental status. Patient is now extubated and on BiPAP. Patient is following simple commands. He awakens to his name. Patient continues to be followed in the ICU. No seizure-like activity noted. At the time of my evaluation, patient appears to be in no acute distress. 01/22/2018 Patient is a 52-year-old male is being followed by the neurology service for altered mental status. Patient is extubated and on 2 L nasal cannula. Patient is much more awake and alert. Patient was transferred out of ICU onto stepdown unit. Patient is alert and conversant. Patient is hard of hearing but appropriate with answers. Patient is moving all extremities. Speech therapy saw patient and is recommending pured diet. No seizures have been witnessed or reported. At the time of my evaluation, patient's resting comfortably in bed and appears to be in no acute distress. 01/23/2018 Patient is a pleasant 52-year-old male who is being followed by the neurology service for altered mental status and seizure. No seizure activity is then witnessed or reported since admission. Patient is more awake and alert today. He is conversing appropriately. Patient is hard of hearing. Patient has left-sided weakness due to previous stroke. Patient is wheelchair bound in the home setting. is concerned she may not be able to care for him in his current condition. I reassured her that we will try to work with him with physical therapy and he may need a short inpatient rehab stay. Patient agrees to have an MRI done so it will be ordered. Patient's diet has progressed to regular diet. I will change his IV antiepileptic medication to oral. At the time of my evaluation, patient's resting comfortably in bed and appears to be in no acute distress. is at the bedside. 01/24/2018 Patient is a 52-year-old male who is being followed by the neurology service for altered mental status and seizure. An MRI has not been performed due to patient refusal. No seizure activity has been reported since admission. Patient is more lethargic today. He takes a great deal of prodding to get patient to wake up. He will open his eyes then quickly falls back to sleep. He is afebrile and blood pressure is acceptable. Patient has not had any sedation. At the time of my evaluation, patient is with increased lethargy. Patient does not appear to be in any acute distress. Objective - Vital Signs Vital signs: Vital Signs Temp 97.6 F 01/24/18 04:00 Pulse 88 01/24/18 11:48 Resp 18 01/24/18 08:00 BP 146/74 01/24/18 08:00 Pulse Ox 97 01/24/18 08:00 Intake & Output 01/23/18 01/24/18 01/24/18 18:59 06:59 18:59 Intake Total 750 480 Output Total 900 Balance 750 -420 Weight 12.5 kg Intake: IV 240 Sodium Chloride 0.9% 1, 240 000 ml @ 50 mls/hr IV . Q20H [facility] Rx#:[id number] Oral 750 240 Output: Urine 900 Other: Voiding Method Indwelling Catheter Indwelling Catheter Indwelling Catheter ABP, PAP, CO, CI - Last Documented Arterial Blood Pressure 119/54 - Exam PHYSICAL EXAM: GENERAL APPEARANCE: Patient is a male who appears to be in no acute distress. HEENT: Normocephalic, atraumatic, no facial asymmetry is seen. Neck is supple with no masses felt. CARDIOVASCULAR: Regular rate and rhythm. ABDOMEN: Nontender, nondistended. Obese. EXTREMITIES: Show edema but no clubbing. NEUROLOGICAL EXAM: Patient is lethargic but oriented 3. Speech is mildly dysarthric and slowed and language are normal. Strength is 3+/5 in bilateral lower extremities and 4-/5 in bilateral upper extremities. Patient is extremely hard of hearing. Sensory exam is not reliable due to patient not understanding or hearing what is being asked of him. No obvious facial asymmetry is seen on cranial nerve testing. Pupils are unequal with left pupil 3 mm and right pupil 2 mm. No tremors or seizure-like activity noted. - Labs CBC & Chem 7: 01/24/18 06:11 01/24/18 06:11 Labs: Abnormal Lab Results - Last 24 Hours (Table) 01/23/18 01/23/18 01/24/18 Range/Units 16:59 21:13 06:11 RBC 3.30 L (4.30-5.90) m/uL Hgb 10.6 L (13.0-17.5) gm/dL Hct 32.5 L (39.0-53.0) % Plt Count 123 L (150-450) k/uL Lymphocytes # 0.8 L (1.0-4.8) k/uL Potassium (3.5-5.1) mmol/L POC Glucose (mg/dL) 276 H 243 H (75-99) mg/dL Calcium (8.4-10.2) mg/dL 01/24/18 01/24/18 01/24/18 Range/Units 06:11 06:26 11:28 RBC (4.30-5.90) m/uL Hgb (13.0-17.5) gm/dL Hct (39.0-53.0) % Plt Count (150-450) k/uL Lymphocytes # (1.0-4.8) k/uL Potassium 3.1 L (3.5-5.1) mmol/L POC Glucose (mg/dL) 225 H 230 H (75-99) mg/dL Calcium 7.6 L (8.4-10.2) mg/dL Microbiology - Last 24 Hours (Table) 01/18/18 08:20 Blood Culture - Final Blood No Growth after 144 hours Assessment and Plan Plan: Impression: 1. Altered mental status, resolving 2. Seizure disorder 3. Fever 4. Acute respiratory failure 5. History of CVA with left-sided hemiplegia Recommendation: Patient originally came in with possibility of ischemic stroke, however, it was not visualized by the initial computed tomography scan of the brain. A repeat computed tomography scan of the brain did not show significant difference as compared to initial computed tomography scan of the brain. Patient is more lethargic today as compared to yesterday. He continues to refuse MRI of the brain. It was also possibility on admission that patient may have suffered a breakthrough seizure given his subtherapeutic Depakote level on admission. Depakote level remains slightly subtherapeutic. Certainly cerebrovascular accident and seizure is in the differential diagnosis. Continue aspirin 325 mg daily. EEG was normal as mentioned above. No seizure activities been reported. Due to change in neurological status, I will order a CT of the brain and an EEG. I recommend continuing Depakote 500 mg every 8 hours and Keppra 1500 mg every 12 hours as long as patient remains without seizures. Depakote has been increased since admission. Depakote level this morning was 38.0. Continue seizure precautions. Continue medical management. Continue neurological checks. I will continue to follow with you. Further recommendations to follow after CT and EEG. I performed an examination of the patient and discussed the management with the ASSOCIATE CREATIVE DIRECTOR. I have reviewed the ASSOCIATE CREATIVE DIRECTOR notes and agree with the findings and plan of care.
[2018-01-24] MEDS: ALPRAZolam 0.25 MG TAB PO PRN (13:25)
[2018-01-24] MEDS: POTASSIUM CHLORIDE 10 MEQ in WATER FOR INJECTION 1 100ML.BAG IVPB SCH ×4 (13:25→18:06)
--- NOTE | 2018-01-24 15:45 | CT ---
EXAMINATION TYPE: CT brain wo con DATE OF EXAM: 01/24/2018 COMPARISON: 07/11/2017 HISTORY: 52-year-old male Decreased responsiveness TECHNIQUE: Examination was done in axial plane without intravenous contrast. Coronal and sagittal r econstructions performed. CT DLP: 1047.10 mGycm Automated exposure control for dose reduction was used. FINDINGS: There is no evidence of acute intracranial hemorrhage, acute ischemic changes, mass, mass-effect, or extra-axial fluid collection. There is no effacement of cerebral sulci or basal subarachnoid cister ns. Similar mild prominence to the ventricular system. There is no midline shift. Goode-white matter distinction is preserved. Similar mild generalized supratentorial volume loss. Continued air-fluid level right sphenoid sinus and moderate mucosal thickening left sphenoid sinus an d scattered throughout the ethmoid air cells. Trace mucosal thickening bilateral maxillary sinuses. P artial opacification of the right greater than left mastoid air cells. Middle ear cavities are clear. IMPRESSION: Similar mild generalized atrophy. No acute intracranial abnormality seen. Continued paranasal sinus disease possible acute sphenoid sinusitis. Some improvement from 01/20/2018. Small amount of trapped fluid in the right greater than left mastoid air cells. Correlate for any mas toid and to exclude mastoiditis.
[2018-01-24 17:30] LABS: Glucose,Whole Blood 221 mg/dL (75-99)
--- NOTE | 2018-01-24 18:06 | P.PN ---
Subjective Progress Note Date: 01/24/18 Principal diagnosis: Altered mental status, fever of unknown region, acute hypoxic respirator failure , severe morbid obesity, old CVA with left hemiparesis, uncontrolled diabetes mellitus and hyperglycemia on insulin pump, seizure disorder, dyslipidemia, coronary artery disease 01/24/2018, patient seen eval reexamined during the rounds clinically patient to not much change from the baseline, somnolent but arousable neuro and the ID service has been following computed tomography scan of the head was performed no significant pathology has been noted, patient is getting broad-spectrum antibiotics and continued on clear therapy for chronic persistent severe asthma Objective - Vital Signs Vital signs: Vital Signs Temp 97.7 F 01/24/18 16:00 Pulse 85 01/24/18 16:22 Resp 16 01/24/18 16:22 BP 150/69 01/24/18 16:00 Pulse Ox 97 01/24/18 16:13 Intake & Output 01/23/18 01/24/18 01/24/18 18:59 06:59 18:59 Intake Total 750 480 Output Total 900 500 Balance 750 -420 -500 Weight 12.5 kg Intake: IV 240 Sodium Chloride 0.9% 1, 240 000 ml @ 50 mls/hr IV . Q20H [facility] Rx#:[id number] Oral 750 240 Output: Urine 900 500 Other: Voiding Method Indwelling Catheter Indwelling Catheter Indwelling Catheter ABP, PAP, CO, CI - Last Documented Arterial Blood Pressure 119/54 - Exam GENERAL APPEARANCE: Patient is a male who appears to be in no acute distress. HEENT: Normocephalic, atraumatic, no facial asymmetry is seen. Neck is supple with no masses felt. CARDIOVASCULAR: Regular rate and rhythm. ABDOMEN: Nontender, nondistended. Obese. EXTREMITIES: Show edema but no clubbing. NEUROLOGICAL EXAM: Patient is awake, alert, and oriented 3. Speech and language are normal. - Labs CBC & Chem 7: 01/24/18 06:11 01/24/18 06:11 Labs: Abnormal Lab Results - Last 24 Hours (Table) 01/23/18 01/24/18 01/24/18 Range/Units 21:13 06:11 06:11 RBC 3.30 L (4.30-5.90) m/uL Hgb 10.6 L (13.0-17.5) gm/dL Hct 32.5 L (39.0-53.0) % Plt Count 123 L (150-450) k/uL Lymphocytes # 0.8 L (1.0-4.8) k/uL Potassium 3.1 L (3.5-5.1) mmol/L POC Glucose (mg/dL) 243 H (75-99) mg/dL Calcium 7.6 L (8.4-10.2) mg/dL 01/24/18 01/24/18 01/24/18 Range/Units 06:26 11:28 17:26 RBC (4.30-5.90) m/uL Hgb (13.0-17.5) gm/dL Hct (39.0-53.0) % Plt Count (150-450) k/uL Lymphocytes # (1.0-4.8) k/uL Potassium (3.5-5.1) mmol/L POC Glucose (mg/dL) 225 H 230 H 221 H (75-99) mg/dL Calcium (8.4-10.2) mg/dL Microbiology - Last 24 Hours (Table) 01/18/18 08:20 Blood Culture - Final Blood No Growth after 144 hours Assessment and Plan Assessment: 1 altered mentation with diminished level of consciousness with a febrile episodes which was worked up and the workup is essentially negative at this point. Lumbar puncture was not done as were not able to obtain a consent from the family. Meanwhile, the fever broke and the patient is currently afebrile and antibiotics. All of the cultures are negative. Mentation is improved and is normalized and the patient is currently extubated. Neurologist on the case. CAT scan of the brain repeated yesterday and shows cerebral atrophy without any acute abnormalities. There is new sinusitis compared to the old exam. He remains on Zosyn. 2 acute respiratory failure secondary to above. The patient was extubated. The patient developed a post extubation stridor that was managed by the combination of Vaponefrin and Decadron. He also required noninvasive positive pressure ventilation the form of BiPAP. Recovered and currently maintaining good O2 saturations in the upper 90s on 2 L/m per nasal cannula. 3 acute febrile illness along with tachycardia and hypotension. The hypotension is recovered. The septic workup is negative for now. All of the cultures are negative. Rule out a component of viral encephalitis. 4 obesity with a BMI 44.8 5 CVA with left-sided hemiplegia and the patient is a wheelchair-bound gentleman 6 diabetes mellitus maintained on insulin pump on outpatient basis currently off the insulin pump and the patient is on a NovoLog size scattered coverage 7 history of seizure disorder 8 hyperlipidemia 9 coronary artery disease 10 severe persistent bronchial asthma 11 hypothyroidism 12 impaired hearing Plan: Continue breathing treatments Continue broad-spectrum oral antibiotics Continuation of home medications Seizure precautions Maintain patient on DVT and peptic ulcer disease prophylaxis Further recommendations pending plan of care as per clinical response of the patient Time with Patient: Greater than 30
--- NOTE | 2018-01-24 20:19 | PN ---
PROGRESS NOTE DATE OF SERVICE: 01/24/18 PRESENT COMPLAINT: Tired. INTERVAL HISTORY: This patient presented with sepsis, felt to be from pneumonia. did not want a lumbar puncture. The patient's Depakote dose was increased yesterday from 250 that he takes at home to 500 mg 3 times a day. The patient is more sleepy today, just arousable. Did not eat much. is at the present the bedside. Otherwise, no fever, no chills, just about arousable. REVIEW OF SYSTEMS: Cannot be done as patient rather lethargic. CURRENT MEDICATIONS: Reviewed that include Augmentin, Depakote 500 mg 3 times a day started yesterday. PHYSICAL EXAMINATION: Temperature 97.6, pulse 80, respiration 18, blood pressure 138/64, pulse ox 97% on 2 L. GENERAL APPEARANCE: Lying in bed, lethargic, arousable. EYES: Pupils equal. Conjunctivae normal. HEENT: External appearance of nose and ears normal. Oral cavity unable to assess. Decreased hearing. NECK: JVD unable to assess. Mass not palpable. RESPIRATORY: Effort increased. Lungs, distant breath sounds. CARDIOVASCULAR: Heart sounds distant, no edema. ABDOMEN: Soft, nontender. Liver and spleen not palpable. PSYCHIATRY: The patient is lethargic. NEUROLOGICAL: Power on the left arm chronically is 4/5, left leg is 2/5 with chronically decreased sensation. INVESTIGATIONS: White count 4.6, potassium 3.1. Accu-Cheks are noted. ASSESSMENT: 1. Severe sepsis from pneumonia, present on admission, now clinically improved. 2. Metabolic encephalopathy probably from increased dose of Depakote, clinically, probably increase as the most likely cause. The patient has not received any pain medications that I see. 3. Moderate persistent asthma with acute exacerbation, improved. 4. Chronic dysphagia. Patient had been on a pureed diet. Pending re-evaluation by speech therapy tomorrow. 5. Acute hypoxic respiratory failure status post being on the ventilator, now on nasal cannula. 6. 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 7. Diabetes mellitus type 2, chronically on insulin uncontrolled with hyperglycemia. 8. Gastroesophageal reflux disease. 9. Hyperlipidemia. 10.Essential hypertension. 11.Chronic memory impairment. 12.Primary osteoarthritis. 13.Hypothyroid. 14.Peripheral neuropathy secondary to diabetes. 15.CODE STATUS: DNR. PLAN: I had a long talk with the patient's son, Aniket. Will await speech to do further evaluation tomorrow. I will cut back on the Depakote to 500 mg twice a day, hold off the evening dose as patient is rather lethargic. Most likely the cause for the same. Will look at if the patient qualifies for inpatient rehab. LAWSON / BENNETT: [id number] /
[2018-01-24] MEDS: MONTELUKAST 10 MG TAB PO SCH (20:30)
[2018-01-24] MEDS: MELATONIN 5 MG TABLET PO SCH (20:36)
[2018-01-24 20:56] LABS: Glucose,Whole Blood 253 mg/dL (75-99)
--- NOTE | 2018-01-24 23:10 | PN ---
PROGRESS NOTE DATE OF SERVICE: 01/24/2018. REASON FOR FOLLOWUP: Aspiration pneumonia. INTERVAL HISTORY: The patient is afebrile. He was noticed to be slightly lethargic this morning. Apparently, his Depakote dose was increased. The patient seemed to be lethargic and did not have any oral intake. No nausea, vomiting, or any diarrhea. EXAMINATION: His blood pressure is 150/69 with a pulse of 98, temperature 97.7, he is 98% on 2 L nasal cannula. GENERAL DESCRIPTION: A middle-aged male lying in bed in no distress. RESPIRATORY SYSTEM: Unlabored breathing with decreased breath sounds at bases, no wheeze. HEART: S1, S2. Regular rate and rhythm. No tenderness. LABS: Hemoglobin is 10.8, white count 4.6, BUN of 17, creatinine 0.67. DIAGNOSTIC IMPRESSION AND PLAN: Patient with fever, concern likely from aspiration pneumonia. Currently on oral Augmentin which will continue for about 5-7 days. Recommend discontinuation of his left IJ to decrease risk of line-related sepsis. Continue supportive care condition. MMODL / IJN: [id number] /
[2018-01-25] MEDS: ONDANSETRON 4 MG/2 ML VIAL IVP PRN (06:13)
[2018-01-25] MEDS: LEVOTHYROXINE 50 MCG TAB PO SCH (06:13)
[2018-01-25 07:19] LABS: Glucose,Whole Blood 218 mg/dL (75-99)
[2018-01-25] MEDS: INSULIN ASPART 100 UNIT/ML 1 ML 10 ML VIAL SQ SCH ×4 (08:03→22:37)
[2018-01-25] MEDS: IPRATROPIUM-ALBUTEROL 3 ML NEB INHALATION SCH ×4 (08:05→19:30)
[2018-01-25] MEDS: ENOXAPARIN 40 MG/0.4 ML SYRINGE SQ SCH (09:13)
[2018-01-25] MEDS: DOXAZOSIN 1 MG TAB PO SCH (09:14)
[2018-01-25] MEDS: DIVALPROEX 500 MG TABLET.DR PO SCH ×3 (09:14→23:29)
[2018-01-25] MEDS: AMOXIC-POT CLAV 875-125MG 1 EACH TAB PO SCH ×2 (09:14→22:37)
[2018-01-25] MEDS: SERTRALINE 25 MG TAB PO SCH (09:14)
[2018-01-25] MEDS: ATORVASTATIN 40 MG TAB PO SCH (09:14)
[2018-01-25] MEDS: CALCIUM CARBONATE LIQUID 500 MG/5 ML CUP PO SCH ×3 (09:14→18:03)
[2018-01-25] MEDS: levETIRAcetam 500 MG TAB PO SCH ×2 (09:14→22:37)
[2018-01-25] MEDS: POTASSIUM CHLORIDE ER 20 MEQ TAB.ER PO SCH (09:14)
[2018-01-25] MEDS: ASPIRIN 81 MG PO SCH (09:14)
[2018-01-25] MEDS: METOCLOPRAMIDE 5 MG TAB PO SCH (09:14)
[2018-01-25] MEDS: FENOFIBRATE 160 MG TAB PO SCH (09:14)
[2018-01-25] MEDS: PANTOPRAZOLE 40 MG TABLET PO SCH ×2 (09:14→18:05)
[2018-01-25 11:20] VITALS: BMI 44.8
[2018-01-25 12:56] LABS: Glucose,Whole Blood 230 mg/dL (75-99)
--- NOTE | 2018-01-25 14:53 | EEG ---
ELECTROENCEPHALOGRAM REPORT DATE OF SERVICE: 01/25/2018. REASON FOR TESTING: Altered mental status and history of seizures. CURRENT ANTI-EPILEPTIC MEDICATIONS: Depakote and Keppra. DESCRIPTION OF THE PROCEDURE: This EEG was performed using a 21 channel digital electroencephalograph, following international 10-20 system. DESCRIPTION OF THE RECORDING: From the beginning of the tracing, with patient's eyes closed, the background rhythm was mostly consisting of 7 Hz theta frequency in the posterior occipital leads. No obvious asymmetry is seen. Frequent muscle artifacts are noticed and more frequent on the right side compared to the left. Frequent lead artifacts are seen. Photic stimulation was performed with no driving response seen. No pathological waves were elicited. Hyperventilation was not performed. The patient remains awake throughout the tracing. No epileptiform discharges were seen. His EKG lead showed a regular rate and rhythm. INTERPRETATION: This awake EEG is abnormal due to presence of generalized slowing of the background rhythm, mostly in the theta range. This is consistent with mild encephalopathy. No epileptiform discharges were seen. The absence of epileptiform discharges does not rule out the diagnosis of epilepsy; therefore clinical correlation is recommended. MMODL / IJN: [id number] /
--- NOTE | 2018-01-25 17:17 | P.PN ---
Subjective Progress Note Date: 01/25/18 01/20/2018 Patient is a 52-year-old male who is being followed by the neurology service for altered mental status. Patient had sudden onset of altered mental status and was brought to [facility] for further evaluation. Patient's states that he fell out of bed and was having difficulty breathing. does not describe any seizure-like activity but did say she noticed urinary incontinence when helping him back to bed. Patient does have history of seizure disorder and is on Keppra 1500 mg twice daily and Depakote ER 1250 mg daily in the home setting. Patient was febrile upon admission with a temp of 101.9. Patient was admitted to the hospital and went to a medical floor. Patient was found unresponsive and was intubated and transferred to the ICU. Patient continues to be intubated on mechanical ventilation in the ICU. CT of the brain on admission showed no acute intracranial hemorrhage. Follow- up CT of the brain showed no significant change from prior CT of the brain. CT of the brain did show minimal white matter changes likely chronic in nature. No acute process was noted. EEG showed mild encephalopathy. At the time of my evaluation, patient remains intubated in the ICU. Patient is not following commands for me. Staff reports occasionally he will follow commands. Staff informs me they will try to wean patient off the ventilator later today. Patient does not appear to be in any acute distress. 01/21/2018 Patient is a 52-year-old male who is being followed by the neurology service for altered mental status. Patient is now extubated and on BiPAP. Patient is following simple commands. He awakens to his name. Patient continues to be followed in the ICU. No seizure-like activity noted. At the time of my evaluation, patient appears to be in no acute distress. 01/22/2018 Patient is a 52-year-old male is being followed by the neurology service for altered mental status. Patient is extubated and on 2 L nasal cannula. Patient is much more awake and alert. Patient was transferred out of ICU onto stepdown unit. Patient is alert and conversant. Patient is hard of hearing but appropriate with answers. Patient is moving all extremities. Speech therapy saw patient and is recommending pured diet. No seizures have been witnessed or reported. At the time of my evaluation, patient's resting comfortably in bed and appears to be in no acute distress. 01/23/2018 Patient is a pleasant 52-year-old male who is being followed by the neurology service for altered mental status and seizure. No seizure activity is then witnessed or reported since admission. Patient is more awake and alert today. He is conversing appropriately. Patient is hard of hearing. Patient has left-sided weakness due to previous stroke. Patient is wheelchair bound in the home setting. is concerned she may not be able to care for him in his current condition. I reassured her that we will try to work with him with physical therapy and he may need a short inpatient rehab stay. Patient agrees to have an MRI done so it will be ordered. Patient's diet has progressed to regular diet. I will change his IV antiepileptic medication to oral. At the time of my evaluation, patient's resting comfortably in bed and appears to be in no acute distress. is at the bedside. 01/24/2018 Patient is a 52-year-old male who is being followed by the neurology service for altered mental status and seizure. An MRI has not been performed due to patient refusal. No seizure activity has been reported since admission. Patient is more lethargic today. He takes a great deal of prodding to get patient to wake up. He will open his eyes then quickly falls back to sleep. He is afebrile and blood pressure is acceptable. Patient has not had any sedation. At the time of my evaluation, patient is with increased lethargy. Patient does not appear to be in any acute distress. 01/25/2018 Patient is a pleasant 52-year-old male who is being followed by the neurology service for altered mental status and seizure. No seizure activities been reported since patient admission. Infectious disease is following patient for fevers most likely from aspiration pneumonia. Patient is currently on antibiotics. Patient has periods of somnolence but answers questions appropriately. Depakote dosing was decreased. Last Depakote level was subtherapeutic at 38.0. A CT of the brain was done for increased somnolence. No new or acute findings noted. CT of the brain did show mild generalized atrophy. EEG was repeated and showed mild encephalopathy with no epileptiform discharges noted. Prior to this admission, patient was wheelchair bound due to previous stroke leaving him with left hemiparesis. Physical therapy is working with the patient. At the time of my evaluation, patient is sleeping but easily aroused. Patient is answering questions appropriately however appears to be sleepy. Patient does not appear to be in any acute distress. Objective - Vital Signs Vital signs: Vital Signs Temp 98.4 F 01/25/18 16:10 Pulse 104 H 01/25/18 16:10 Resp 16 01/25/18 16:10 BP 182/77 01/25/18 16:10 Pulse Ox 95 01/25/18 16:10 Intake & Output 01/24/18 01/25/18 01/25/18 18:59 06:59 18:59 Intake Total 400 350 Output Total 500 1600 1600 Balance -500 -1200 -1250 Weight 126 kg 126 kg Intake: IV 400 350 Sodium Chloride 0.9% 1, 400 350 000 ml @ 50 mls/hr IV . Q20H [facility] Rx#:[id number] Output: Urine 500 1600 1600 Uretheral ([place]) 1600 Other: Voiding Method Indwelling Catheter Indwelling Catheter Indwelling Catheter ABP, PAP, CO, CI - Last Documented Arterial Blood Pressure 119/54 - Exam PHYSICAL EXAM: GENERAL APPEARANCE: Patient is a male who appears to be in no acute distress. HEENT: Normocephalic, atraumatic, no facial asymmetry is seen. Neck is supple with no masses felt. CARDIOVASCULAR: Regular rate and rhythm. ABDOMEN: Nontender, nondistended. Obese. EXTREMITIES: Show edema but no clubbing. NEUROLOGICAL EXAM: Patient is lethargic but oriented 3. Speech is mildly dysarthric and slowed and language is normal. Strength is 3+/5 in bilateral lower extremities and 4-/5 in bilateral upper extremities. Patient is extremely hard of hearing. Sensory exam is not reliable due to patient not understanding or hearing what is being asked of him. No obvious facial asymmetry is seen on cranial nerve testing. . No tremors or seizure-like activity noted. - Labs CBC & Chem 7: 01/24/18 06:11 01/24/18 19:48 Labs: Abnormal Lab Results - Last 24 Hours (Table) 01/24/18 01/24/18 01/25/18 Range/Units 17:26 20:55 07:18 POC Glucose (mg/dL) 221 H 253 H 218 H (75-99) mg/dL 01/25/18 Range/Units 12:54 POC Glucose (mg/dL) 230 H (75-99) mg/dL Assessment and Plan Plan: Impression: 1. Altered mental status, resolving 2. Seizure disorder 3. Fever 4. Acute respiratory failure 5. History of CVA with left-sided hemiplegia Recommendation: Patient originally came in with possibility of ischemic stroke, however, it was not visualized by the initial computed tomography scan of the brain. A repeat computed tomography scan of the brain did not show significant difference as compared to initial computed tomography scan of the brain. Patient is more lethargic today as compared to yesterday. He continues to refuse MRI of the brain. It was also possibility on admission that patient may have suffered a breakthrough seizure given his subtherapeutic Depakote level on admission. Depakote level remains slightly subtherapeutic. Certainly cerebrovascular accident and seizure is in the differential diagnosis. Continue aspirin 325 mg daily. EEG showed mild encephalopathy with no epileptiform discharges as mentioned above. No seizure activities been reported. I recommend continuing Depakote 500 mg every 8 hours and Keppra 1500 mg every 12 hours as long as patient remains without seizures. Depakote has been decreased to 500 mg twice a day. Last Depakote level 38.0. I will order Depakote level for the a.m. Please page Dr. Mulligan with results. Continue seizure precautions. Continue medical management. Continue neurological checks. I recommend inpatient rehab following discharge. I will continue to follow with you on an as-needed basis. Feel free to call with any questions or concerns. I performed an examination of the patient and discussed the management with the ONLINE MARKETING SPECIALIST. I have reviewed the ONLINE MARKETING SPECIALIST notes and agree with the findings and plan of care.
[2018-01-25 17:20] LABS: Glucose,Whole Blood 241 mg/dL (75-99)
--- NOTE | 2018-01-25 19:23 | P.PN ---
Subjective Progress Note Date: 01/25/18 Principal diagnosis: Altered mental status, fever of unknown region, acute hypoxic respirator failure , severe morbid obesity, old CVA with left hemiparesis, uncontrolled diabetes mellitus and hyperglycemia on insulin pump, seizure disorder, dyslipidemia, coronary artery disease 01/25/2018, patient seen eval examined during the rounds clinically patient hemodynamically and respiratory standpoint is better but mental status remains marginal patient is awake but mostly noncommunicative, sometimes do a conversation as per report, neurology is following the patient is undergoing active physical therapy last chest x-ray right lower lobe subsegmental atelectasis noted with a right-sided rib fractures small resolving right-sided aspiration pneumonia cannot be excluded 01/24/2018, patient seen eval reexamined during the rounds clinically patient to not much change from the baseline, somnolent but arousable neuro and the ID service has been following computed tomography scan of the head was performed no significant pathology has been noted, patient is getting broad-spectrum antibiotics and continued on clear therapy for chronic persistent severe asthma Objective - Vital Signs Vital signs: Vital Signs Temp 98.4 F 01/25/18 16:10 Pulse 104 H 01/25/18 16:10 Resp 16 01/25/18 16:10 BP 182/77 01/25/18 16:10 Pulse Ox 95 01/25/18 16:10 Intake & Output 01/25/18 01/25/18 01/26/18 06:59 18:59 06:59 Intake Total 400 350 Output Total 1600 1600 Balance -1200 -1250 Weight 126 kg Intake: IV 400 350 Sodium Chloride 0.9% 1, 400 350 000 ml @ 50 mls/hr IV . Q20H [facility] Rx#:[id number] Output: Urine 1600 1600 Uretheral ([place]) 1600 Other: Voiding Method Indwelling Catheter Indwelling Catheter ABP, PAP, CO, CI - Last Documented Arterial Blood Pressure 119/54 - Exam GENERAL APPEARANCE: Patient is a male who appears to be in no acute distress. HEENT: Normocephalic, atraumatic, no facial asymmetry is seen. Neck is supple with no masses felt. CARDIOVASCULAR: Regular rate and rhythm. ABDOMEN: Nontender, nondistended. Obese. EXTREMITIES: Show edema but no clubbing. NEUROLOGICAL EXAM: Patient is awake, alert, and oriented 3. Speech and language are normal. - Labs CBC & Chem 7: 01/24/18 06:11 01/24/18 19:48 Labs: Abnormal Lab Results - Last 24 Hours (Table) 01/24/18 01/25/18 01/25/18 Range/Units 20:55 07:18 12:54 POC Glucose (mg/dL) 253 H 218 H 230 H (75-99) mg/dL 01/25/18 Range/Units 17:19 POC Glucose (mg/dL) 241 H (75-99) mg/dL Assessment and Plan Assessment: 1 altered mentation with diminished level of consciousness with a febrile episodes which was worked up and the workup is essentially negative at this point. Lumbar puncture was not done as were not able to obtain a consent from the family. Meanwhile, the fever broke and the patient is currently afebrile and antibiotics. All of the cultures are negative. Mentation is improved and is normalized and the patient is currently extubated. Neurologist on the case. CAT scan of the brain repeated yesterday and shows cerebral atrophy without any acute abnormalities. There is new sinusitis compared to the old exam. He off of Zosyn. Now on Augmentin, Chest x-ray last performed there is a subtle right lower lobe aspiration pneumonia appears to be resolving 2 acute respiratory failure secondary to above. The patient was extubated. The patient developed a post extubation stridor that was managed by the combination of Vaponefrin and Decadron. He also required noninvasive positive pressure ventilation the form of BiPAP. Recovered and currently maintaining good O2 saturations in the upper 90s on 2 L/m per nasal cannula. 3 acute febrile illness along with tachycardia and hypotension. The hypotension is recovered. The septic workup is negative for now. All of the cultures are negative. Rule out a component of viral encephalitis. 4 obesity with a BMI 44.8 5 CVA with left-sided hemiplegia and the patient is a wheelchair-bound gentleman 6 diabetes mellitus maintained on insulin pump on outpatient basis currently off the insulin pump and the patient is on a NovoLog size scattered coverage 7 history of seizure disorder 8 hyperlipidemia 9 coronary artery disease 10 severe persistent bronchial asthma 11 hypothyroidism 12 impaired hearing Plan: Continue breathing treatments Continue broad-spectrum oral antibiotics Continuation of home medications Seizure precautions Maintain patient on DVT and peptic ulcer disease prophylaxis Further recommendations pending plan of care as per clinical response of the patient Time with Patient: Greater than 30
[2018-01-25] MEDS: SODIUM CHLORIDE 0.9% 1,000 ML IV SCH ×2 (19:32→22:36)
[2018-01-25 20:40] LABS: Glucose,Whole Blood 273 mg/dL (75-99)
--- NOTE | 2018-01-25 22:23 | PN ---
PROGRESS NOTE DATE OF SERVICE: January 25, 2018. PRESENT COMPLAINT: Lethargic. INTERVAL HISTORY: Patient admitted with sepsis, pneumonia. I did cut back on the dose of Depakote as patient is very lethargic. The patient did have no responsive today. EEG showed evidence of some encephalopathy. REVIEW OF SYSTEMS: Done for constitutional, cardiovascular, GI, pulmonary and relevant findings as above. CURRENT MEDICATIONS: Reviewed and include Augmentin and Depakote 500 mg twice a day. PHYSICAL EXAMINATION: VITAL SIGNS: Temperature 98.4, pulse 104, respiratory rate 16. Blood pressure 82/77, before that 162/88. GENERAL APPEARANCE: Lying in bed, lethargic but more arousable today. EYES: Pupils equal. Conjunctivae normal. HEENT: External appearance of nose and ears normal. Oral cavity dry. NECK: JVD unable to assess. Mass not palpable. RESPIRATORY effort increased. LUNGS: Distant breath sounds. CARDIOVASCULAR: Heart sounds distant. No edema. ABDOMEN: Soft, nontender. Liver and spleen not palpable. PSYCHIATRY: The patient does answer simple questions. NEUROLOGICAL: Power on the left arm is chronically 4 x 5 left leg is 2 x 5 with decreased sensation. INVESTIGATIONS: Accu-Cheks 241, 273. EEG showing mild encephalopathy. ASSESSMENT: 1. Severe sepsis from pneumonia, present on admission now improved. 2. Metabolic encephalopathy likely from increased to the Depakote. Often times, clinically even the level may be the lower side, but sometimes it may have to follow that clinically. In view of that, I cut back on the dose of Depakote yesterday. If the patient remains lethargic, may have to cut about a tad bit more as he was only taking 250 before, it may just be sufficient at 250 3 times a day. 3. Moderate persistent asthma with acute exacerbation, improved. 4. Chronic dysphagia. 5. Acute hypoxic respiratory failure status post being on the ventilator, now on nasal cannula. 6. 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 7. Diabetes mellitus type 2, chronically on insulin uncontrolled with hyperglycemia. 8. Gastroesophageal reflux disease. 9. Hyperlipidemia. 10.Essential hypertension. 11.Chronic memory impairment. 12.Primary osteoarthritis. 13.Hypothyroid. 14.Peripheral neuropathy secondary to diabetes. 15.CODE STATUS DNR. Speech evaluated the patient again today and recommends to stay with pureed diet. MMODL / IJN: [id number] /
[2018-01-25] MEDS: MELATONIN 5 MG TABLET PO SCH (22:37)
[2018-01-25] MEDS: MONTELUKAST 10 MG TAB PO SCH (22:37)
[2018-01-25] MEDS: ACETAMINOPHEN TAB 325 MG TAB PO PRN (22:38)
[2018-01-25 23:23] LABS: Glucose,Whole Blood 238 mg/dL (75-99)
--- NOTE | 2018-01-26 00:08 | PN ---
PROGRESS NOTE DATE OF SERVICE: 01/25/2018. REASON FOR FOLLOWUP: Aspiration pneumonia. INTERVAL HISTORY: The patient is afebrile. He has been breathing comfortably, but otherwise the patient has been sleeping mostly and getting up and around. No nausea or vomiting has been noted, or any diarrhea. PHYSICAL EXAMINATION: Blood pressure 182/77, pulse 104, temperature 98.4, he is 95% on 2 liters. GENERAL DESCRIPTION: A middle aged male lying in bed in no distress. RESPIRATORY SYSTEM: Unlabored breathing. Breath sounds diminished at the bases. No wheezes. HEART: S1, S2 with regular rate and rhythm. ABDOMEN: Soft, no tenderness. LABS: No new labs have been obtained today. DIAGNOSTIC IMPRESSION AND PLAN: 1. Patient with fevers, likely for pneumonia, possible aspiration. Sputum has been resistant pathogen, currently on oral Augmentin. Continue to follow. 2. Patient with a left internal jugular line. Should be discontinued due to risk of line-related sepsis. Continue supportive care. MMODL / IJN: [id number] /
[2018-01-26 07:23] LABS: Glucose,Whole Blood 206 mg/dL (75-99)
[2018-01-26 07:37] LABS: Glucose,Whole Blood 208 mg/dL (75-99)
[2018-01-26] MEDS: IPRATROPIUM-ALBUTEROL 3 ML NEB INHALATION SCH ×4 (07:46→20:37)
[2018-01-26] MEDS: LEVOTHYROXINE 50 MCG TAB PO SCH (09:26)
[2018-01-26] MEDS: FENOFIBRATE 160 MG TAB PO SCH (09:33)
[2018-01-26] MEDS: levETIRAcetam 500 MG TAB PO SCH ×2 (09:33→21:13)
[2018-01-26] MEDS: DIVALPROEX 500 MG TABLET.DR PO SCH ×3 (09:33→21:13)
[2018-01-26] MEDS: SERTRALINE 25 MG TAB PO SCH (09:33)
[2018-01-26] MEDS: ATORVASTATIN 40 MG TAB PO SCH (09:33)
[2018-01-26] MEDS: AMOXIC-POT CLAV 875-125MG 1 EACH TAB PO SCH ×2 (09:33→21:13)
[2018-01-26] MEDS: POTASSIUM CHLORIDE ER 20 MEQ TAB.ER PO SCH (09:33)
[2018-01-26] MEDS: ASPIRIN 81 MG PO SCH (09:33)
[2018-01-26] MEDS: ENOXAPARIN 40 MG/0.4 ML SYRINGE SQ SCH (09:33)
[2018-01-26] MEDS: CALCIUM CARBONATE LIQUID 500 MG/5 ML CUP PO SCH ×3 (09:33→16:54)
[2018-01-26] MEDS: DOXAZOSIN 1 MG TAB PO SCH (09:33)
[2018-01-26] MEDS: METOCLOPRAMIDE 5 MG TAB PO SCH (09:33)
[2018-01-26] MEDS: PANTOPRAZOLE 40 MG TABLET PO SCH ×3 (09:33→16:54)
[2018-01-26 11:56] LABS: Glucose,Whole Blood 205 mg/dL (75-99)
[2018-01-26] MEDS: INSULIN ASPART 100 UNIT/ML 1 ML 10 ML VIAL SQ SCH ×4 (13:49→21:12)
[2018-01-26 17:12] LABS: Glucose,Whole Blood 216 mg/dL (75-99)
--- NOTE | 2018-01-26 19:22 | P.PN ---
Subjective Progress Note Date: 01/26/18 Principal diagnosis: Altered mental status, fever of unknown region, acute hypoxic respirator failure , severe morbid obesity, old CVA with left hemiparesis, uncontrolled diabetes mellitus and hyperglycemia on insulin pump, seizure disorder, dyslipidemia, coronary artery disease 01/26/2018, patient seen eval examined during the rounds clinically patient is doing well awake breathing, however patient is mostly somnolent but readily arousable, labs reviewed medications reviewed 01/25/2018, patient seen eval examined during the rounds clinically patient hemodynamically and respiratory standpoint is better but mental status remains marginal patient is awake but mostly noncommunicative, sometimes do a conversation as per report, neurology is following the patient is undergoing active physical therapy last chest x-ray right lower lobe subsegmental atelectasis noted with a right-sided rib fractures small resolving right-sided aspiration pneumonia cannot be excluded 01/24/2018, patient seen eval reexamined during the rounds clinically patient to not much change from the baseline, somnolent but arousable neuro and the ID service has been following computed tomography scan of the head was performed no significant pathology has been noted, patient is getting broad-spectrum antibiotics and continued on clear therapy for chronic persistent severe asthma Objective - Vital Signs Vital signs: Vital Signs Temp 98.2 F 01/26/18 15:00 Pulse 82 01/26/18 16:03 Resp 18 01/26/18 16:00 BP 139/83 01/26/18 15:00 Pulse Ox 96 01/26/18 15:00 Intake & Output 01/26/18 01/26/18 01/27/18 06:59 18:59 06:59 Intake Total 720 315 Output Total 900 1350 Balance -180 -1035 Intake: IV 600 315 Sodium Chloride 0.9% 1, 600 315 000 ml @ 50 mls/hr IV . Q20H [facility] Rx#:[id number] Oral 120 Output: Urine 900 1350 Uretheral ([place]) 700 1350 Other: Voiding Method Indwelling Catheter Indwelling Catheter ABP, PAP, CO, CI - Last Documented Arterial Blood Pressure 119/54 - Exam GENERAL APPEARANCE: Patient is a male who appears to be in no acute distress. HEENT: Normocephalic, atraumatic, no facial asymmetry is seen. Neck is supple with no masses felt. CARDIOVASCULAR: Regular rate and rhythm. ABDOMEN: Nontender, nondistended. Obese. EXTREMITIES: Show edema but no clubbing. NEUROLOGICAL EXAM: Patient is awake, alert, and oriented 3. Speech and language are normal. - Labs CBC & Chem 7: 01/24/18 06:11 01/24/18 19:48 Labs: Abnormal Lab Results - Last 24 Hours (Table) 01/25/18 01/25/18 01/26/18 Range/Units 20:38 23:21 07:21 POC Glucose (mg/dL) 273 H 238 H 206 H (75-99) mg/dL 01/26/18 01/26/18 01/26/18 Range/Units 07:36 11:55 17:11 POC Glucose (mg/dL) 208 H 205 H 216 H (75-99) mg/dL Assessment and Plan Assessment: 1 altered mentation with diminished level of consciousness with a febrile episodes which was worked up and the workup is essentially negative at this point. Lumbar puncture was not done as were not able to obtain a consent from the family. Meanwhile, the fever broke and the patient is currently afebrile and antibiotics. All of the cultures are negative. Mentation is improved and is normalized and the patient is currently extubated. Neurologist on the case. CAT scan of the brain repeated yesterday and shows cerebral atrophy without any acute abnormalities. There is new sinusitis compared to the old exam. He off of Zosyn. Now on Augmentin, Chest x-ray last performed there is a subtle right lower lobe aspiration pneumonia appears to be resolving 2 acute respiratory failure secondary to above. The patient was extubated. The patient developed a post extubation stridor that was managed by the combination of Vaponefrin and Decadron. He also required noninvasive positive pressure ventilation the form of BiPAP. Recovered and currently maintaining good O2 saturations in the upper 90s on 2 L/m per nasal cannula. 3 acute febrile illness along with tachycardia and hypotension. The hypotension is recovered. The septic workup is negative for now. All of the cultures are negative. Rule out a component of viral encephalitis. 4 obesity with a BMI 44.8 5 CVA with left-sided hemiplegia and the patient is a wheelchair-bound gentleman 6 diabetes mellitus maintained on insulin pump on outpatient basis currently off the insulin pump and the patient is on a NovoLog size scattered coverage 7 history of seizure disorder 8 hyperlipidemia 9 coronary artery disease 10 severe persistent bronchial asthma 11 hypothyroidism 12 impaired hearing Plan: Continue breathing treatments Continue broad-spectrum oral antibiotics Continuation of home medications Seizure precautions Maintain patient on DVT and peptic ulcer disease prophylaxis Further recommendations pending plan of care as per clinical response of the patient Time with Patient: Greater than 30
[2018-01-26 20:01] LABS: Glucose,Whole Blood 220 mg/dL (75-99)
[2018-01-26] MEDS: MELATONIN 5 MG TABLET PO SCH (21:13)
[2018-01-26] MEDS: MONTELUKAST 10 MG TAB PO SCH (21:13)
[2018-01-26] MEDS: SODIUM CHLORIDE 0.9% 1,000 ML IV SCH (21:14)
[2018-01-27] MEDS: LEVOTHYROXINE 50 MCG TAB PO SCH (03:01)
--- NOTE | 2018-01-27 06:52 | PN ---
PROGRESS NOTE DATE OF SERVICE: 01/26/2018 REASON FOR FOLLOWUP: Aspiration pneumonia. INTERVAL HISTORY: The patient is currently afebrile, has been breathing comfortably. Hemodynamically stable. No nausea or vomiting. Has been noticed to be slightly lethargic. No diarrhea. PHYSICAL EXAMINATION: On examination, his blood pressure is 139/83 with a pulse of 93, temperature 98.2. He is 96% on 2 L nasal cannula. General description is a middle-aged male lying in bed in no distress. RESPIRATORY SYSTEM: Unlabored breathing, clear to auscultation anteriorly. HEART: S1, S2. Regular rate and rhythm. ABDOMEN: Soft, no tenderness. LABS: No new labs have been obtained today. DIAGNOSTIC IMPRESSION AND PLAN: Patient with fever concern likely for possible aspiration pneumonia. As the patient currently on oral Augmentin, will continue to finish course of therapy as sputum has been negative for resistant pathogen. RN has been advised to discontinue the left IJ to decrease risk of line related sepsis. Continue supportive care. MMODL / IJN: [id number] /
[2018-01-27 07:00] LABS: Glucose,Whole Blood 202 mg/dL (75-99)
[2018-01-27] MEDS: IPRATROPIUM-ALBUTEROL 3 ML NEB INHALATION SCH ×4 (07:16→19:57)
[2018-01-27] MEDS: CALCIUM CARBONATE LIQUID 500 MG/5 ML CUP PO SCH ×3 (07:31→17:29)
[2018-01-27] MEDS: INSULIN ASPART 100 UNIT/ML 1 ML 10 ML VIAL SQ SCH ×4 (07:31→21:08)
--- NOTE | 2018-01-27 08:43 | PN ---
PROGRESS NOTE DATE OF SERVICE: 01/26/2018. PRESENTING COMPLAINT: Less lethargic. INTERVAL HISTORY: This patient presented with sepsis and pneumonia. I was thinking of cutting back the dose of Depakote, but then the patient was put back on the same dose he takes at home. The speech therapist called me this morning, patient was rather lethargic. But when I saw the patient this afternoon, the patient is more communicative. His son, Aniket, was present. Per speech therapy, patient should remained on a pureed diet. REVIEW OF SYSTEMS: Done for constitutional, cardiovascular, GI, pulmonary; relevant findings as above. CURRENT MEDICATIONS: Reviewed. PHYSICAL EXAMINATION: Temperature 98.2, pulse 93, respiratory rate 18, blood pressure 139/83, pulse 96% on 2 L. GENERAL APPEARANCE: Lying in bed, more awake today. EYES: Pupils equal. Conjunctivae normal. HEENT: External appearance of nose and ears normal. Oral cavity dry. NECK: JVD unable to assess. Mass not palpable. Respiratory effort increased. LUNGS: Distant breath sounds. CARDIOVASCULAR: Heart sounds distant. No edema. ABDOMEN: Soft, nontender. Liver and spleen not palpable. PSYCHIATRY: Answering simple questions. NEUROLOGIC: Power on the left arm is 4/5, left leg is 2/5, decreased sensation. INVESTIGATIONS: Accu-Cheks are noted. ASSESSMENT: 1. Severe sepsis and pneumonia, present on admission, now corrected. 2. Metabolic encephalopathy, could be from underlying infection, slowly improving. 3. Moderate persistent asthma with acute exacerbation, improved. 4. Chronic dysphagia. 5. Acute hypoxic respiratory failure, status post being on the ventilator, now on nasal cannula. 6. 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 7. Diabetes mellitus type 2, chronically on insulin, uncontrolled with hypoglycemia. 8. Gastroesophageal reflux disease. 9. Hyperlipidemia. 10.Essential hypertension. 11.Chronic memory impairment. 12.Primary osteoarthritis. 13.Hypothyroidism. 14.Peripheral neuropathy secondary to diabetes. 15.CODE STATUS, DNR. 16.Mild cognitive impairment, probably from multiinfarct dementia. PLAN: The patient will be reevaluated by Speech again. The patient is to remain on a pureed diet. The patient is definitely looking to be more awake. Hoping patient can be transferred to the [facility] tomorrow. MMODL / IJN: [id number] /
[2018-01-27] MEDS: ENOXAPARIN 40 MG/0.4 ML SYRINGE SQ SCH (09:30)
[2018-01-27 11:22] LABS: Glucose,Whole Blood 184 mg/dL (75-99)
[2018-01-27] MEDS: AMOXIC-POT CLAV 875-125MG 1 EACH TAB PO SCH ×2 (11:46→21:07)
[2018-01-27] MEDS: ASPIRIN 81 MG PO SCH (11:46)
[2018-01-27] MEDS: METOCLOPRAMIDE 5 MG TAB PO SCH (11:47)
[2018-01-27] MEDS: levETIRAcetam 500 MG TAB PO SCH ×2 (11:47→21:07)
[2018-01-27] MEDS: DIVALPROEX 500 MG TABLET.DR PO SCH ×3 (11:47→21:07)
[2018-01-27] MEDS: FENOFIBRATE 160 MG TAB PO SCH (11:47)
[2018-01-27] MEDS: SERTRALINE 25 MG TAB PO SCH (11:47)
[2018-01-27] MEDS: ATORVASTATIN 40 MG TAB PO SCH (11:47)
[2018-01-27] MEDS: POTASSIUM CHLORIDE ER 20 MEQ TAB.ER PO SCH (11:47)
[2018-01-27] MEDS: DOXAZOSIN 1 MG TAB PO SCH ×2 (11:47→14:59)
[2018-01-27] MEDS: SODIUM CHLORIDE 0.9% 1,000 ML IV SCH ×2 (11:48→18:00)
--- NOTE | 2018-01-27 12:55 | FL ---
EXAMINATION TYPE: FL barium swallow w video DATE OF EXAM: 01/27/2018 MODIFIED SWALLOW / DEGLUTITION STUDY CLINICAL HISTORY: Dysphagia. Rule out aspiration. TECHNIQUE: Deglutition study is performed utilizing thin liquid barium, honey and nectar thick liqui d barium, barium thick applesauce, and barium coated cracker. A total of 2 minutes 57 seconds of fluo roscopic time was utilized during procedure. 0 spot images are saved to PACS. COMPARISON: None. FINDINGS: Exam noted markedly suboptimal due to patient's large body habitus. Patient did have 1 epis ode of significant coughing without obvious aspiration during spoonful of thin liquid barium. The ora l and pharyngeal phases show satisfactory initiation and propagation with all modalities tested. Sati sfactory mastication is seen with solid modalities tested. There is no evidence of large aspiration with any modality tested. No obvious large pharyngeal residue was appreciated. IMPRESSION: Suboptimal study with poor visualization due to body habitus. No large aspiration observe d with any modality. Please refer to speech therapist notes for further details if necessary.
--- NOTE | 2018-01-27 14:25 | PN ---
PROGRESS NOTE DATE OF SERVICE: 02/06/2018 REASON FOR FOLLOWUP: Aspiration pneumonia. INTERVAL HISTORY: The patient is currently afebrile. He is breathing comfortably. The patient did get a peripheral IV. However, the central line was supposed to be discontinued, still has not been discontinued. No nausea, vomiting has been noticed or any diarrhea. Not able to provide a reliable history. PHYSICAL EXAMINATION: Blood pressure 176/100 with a pulse of 89, temperature 98.3, he is 93% on room air. General description is a middle-aged male, lying in bed in no distress. RESPIRATORY SYSTEM: Unlabored breathing, clear to auscultation anteriorly. HEART: S1, S2. Regular rate and rhythm. ABDOMEN: Soft, no tenderness. LABS: No new labs have been obtained today. DIAGNOSTIC IMPRESSION AND PLAN: 1. Patient with fever, source likely pneumonia to finish therapy with oral Augmentin. 2. Left IJ needs to be discontinued to decrease risk of line again to the RN today. MMODL / IJN: [id number] /
--- NOTE | 2018-01-27 15:07 | P.PN ---
Subjective Progress Note Date: 01/27/18 Principal diagnosis: Altered mental status, fever of unknown region, acute hypoxic respirator failure , severe morbid obesity, old CVA with left hemiparesis, uncontrolled diabetes mellitus and hyperglycemia on insulin pump, seizure disorder, dyslipidemia, coronary artery disease 01/27/2018, patient seen eval examined during the rounds clinically doing better in terms of respirator standpoint awake, patient has been making simple conversation denies any cough or sputum production denies any chest pain breathing comfortably labs reviewed medications reviewed, laboratory data reviewed, patient is status post swallow evaluation no significant aspiration has been noted 01/26/2018, patient seen eval examined during the rounds clinically patient is doing well awake breathing, however patient is mostly somnolent but readily arousable, labs reviewed medications reviewed 01/25/2018, patient seen eval examined during the rounds clinically patient hemodynamically and respiratory standpoint is better but mental status remains marginal patient is awake but mostly noncommunicative, sometimes do a conversation as per report, neurology is following the patient is undergoing active physical therapy last chest x-ray right lower lobe subsegmental atelectasis noted with a right-sided rib fractures small resolving right-sided aspiration pneumonia cannot be excluded 01/24/2018, patient seen eval reexamined during the rounds clinically patient to not much change from the baseline, somnolent but arousable neuro and the ID service has been following computed tomography scan of the head was performed no significant pathology has been noted, patient is getting broad-spectrum antibiotics and continued on clear therapy for chronic persistent severe asthma Objective - Vital Signs Vital signs: Vital Signs Temp 98.3 F 01/27/18 05:59 Pulse 88 01/27/18 11:37 Resp 16 01/27/18 05:59 BP 176/104 01/27/18 05:59 Pulse Ox 93 L 01/27/18 05:59 Intake & Output 01/26/18 01/27/18 01/27/18 18:59 06:59 18:59 Intake Total 315 1180 400 Output Total 2277 105 9205 Balance -1035 280 -600 Intake: IV 315 400 Sodium Chloride 0.9% 1, 315 400 000 ml @ 50 mls/hr IV . Q20H [facility] Rx#:[id number] Oral 1180 Output: Urine 1284 170 6415 Uretheral ([place]) 1350 Other: Voiding Method Indwelling Catheter Indwelling Catheter Indwelling Catheter ABP, PAP, CO, CI - Last Documented Arterial Blood Pressure 119/54 - Exam GENERAL APPEARANCE: Patient is a male who appears to be in no acute distress. HEENT: Normocephalic, atraumatic, no facial asymmetry is seen. Neck is supple with no masses felt. CARDIOVASCULAR: Regular rate and rhythm. ABDOMEN: Nontender, nondistended. Obese. EXTREMITIES: Show edema but no clubbing. NEUROLOGICAL EXAM: Patient is awake, alert, and oriented 3. Speech and language are normal. - Labs CBC & Chem 7: 01/24/18 06:11 01/24/18 19:48 Labs: Abnormal Lab Results - Last 24 Hours (Table) 01/26/18 01/26/18 01/27/18 Range/Units 17:11 19:59 06:59 POC Glucose (mg/dL) 216 H 220 H 202 H (75-99) mg/dL 01/27/18 Range/Units 11:21 POC Glucose (mg/dL) 184 H (75-99) mg/dL Assessment and Plan Assessment: 1 altered mentation with diminished level of consciousness with a febrile episodes which was worked up and the workup is essentially negative at this point. Lumbar puncture was not done as were not able to obtain a consent from the family. Meanwhile, the fever broke and the patient is currently afebrile and antibiotics. All of the cultures are negative. Mentation is improved and is normalized and the patient is currently extubated. Neurologist on the case. CAT scan of the brain repeated yesterday and shows cerebral atrophy without any acute abnormalities. There is new sinusitis compared to the old exam. He off of Zosyn. Now on Augmentin, Chest x-ray last performed there is a subtle right lower lobe aspiration pneumonia appears to be resolving 2 acute respiratory failure secondary to above. The patient was extubated. The patient developed a post extubation stridor that was managed by the combination of Vaponefrin and Decadron. He also required noninvasive positive pressure ventilation the form of BiPAP. Recovered and currently maintaining good O2 saturations in the upper 90s on 2 L/m per nasal cannula. 3 acute febrile illness along with tachycardia and hypotension. The hypotension is recovered. The septic workup is negative for now. All of the cultures are negative. Rule out a component of viral encephalitis. 4 obesity with a BMI 44.8 5 CVA with left-sided hemiplegia and the patient is a wheelchair-bound gentleman 6 diabetes mellitus maintained on insulin pump on outpatient basis currently off the insulin pump and the patient is on a NovoLog size scattered coverage 7 history of seizure disorder 8 hyperlipidemia 9 coronary artery disease 10 severe persistent bronchial asthma 11 hypothyroidism 12 impaired hearing Plan: Continue breathing treatments Continue broad-spectrum oral antibiotics Continuation of home medications Seizure precautions Maintain patient on DVT and peptic ulcer disease prophylaxis Further recommendations pending plan of care as per clinical response of the patient Patient likely will be placed in extended care facility Time with Patient: Greater than 30
[2018-01-27] MEDS: PANTOPRAZOLE 40 MG TABLET PO SCH (17:29)
[2018-01-27 17:38] LABS: Glucose,Whole Blood 207 mg/dL (75-99)
[2018-01-27 20:11] LABS: Glucose,Whole Blood 195 mg/dL (75-99)
[2018-01-27] MEDS: MELATONIN 5 MG TABLET PO SCH (21:07)
[2018-01-27] MEDS: MONTELUKAST 10 MG TAB PO SCH (21:08)
--- NOTE | 2018-01-27 22:28 | PN ---
PROGRESS NOTE DATE OF SERVICE: 01/27/2018 PRESENTING COMPLAINT: Tired. INTERVAL HISTORY: This patient presented with sepsis, pneumonia. Did do a modified barium swallow; no obvious aspiration. The patient was put on a pureed to mechanical soft diet. Patient is eating some. Tired. REVIEW OF SYSTEMS: Review of systems was attempted for constitutional, cardiovascular, GI, pulmonary; relevant findings as above. CURRENT MEDICATIONS: Reviewed. PHYSICAL EXAMINATION: Temperature 97.8, pulse 105, respiration 22, blood pressure 188/80, pulse ox 98% on 2 L. GENERAL APPEARANCE: Lying in bed. Tired but arousable. EYES: Pupils equal. Conjunctivae normal. HEENT: External appearance of nose and ears normal. Oral cavity dry. NECK: JVD unable to assess. Mass not palpable. RESPIRATORY: Effort increased. LUNGS: Distant breath sounds. CARDIOVASCULAR: Heart sounds are distant. No edema. ABDOMEN: Soft, non-tender. Liver and spleen not palpable. PSYCHIATRY: Answers simple questions. NEUROLOGICAL: Power to the left arm is 4/5, left leg 2/5. Decreased sensation. INVESTIGATIONS: Accu-Cheks are noted. ASSESSMENT: 1. Severe sepsis, pneumonia, present on admission, now corrected. 2. Metabolic encephalopathy from underlying infections. 3. Moderate persistent asthma with acute exacerbation, improved. 4. Chronic dysphagia, currently on a pureed diet. 5. Acute hypoxic respiratory failure, status post being on the ventilator. 6. 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 7. Diabetes mellitus, type 2, chronically on insulin, uncontrolled with hypoglycemia. 8. Gastroesophageal reflux disease. 9. Hyperlipidemia. 10.Essential hypertension. 11.Chronic memory impairment. 12.Primary osteoarthritis. 13.Hypothyroidism. 14.Peripheral neuropathy secondary to diabetes. 15.CODE STATUS DNR. 16.Mild cognitive impairment, probably from multi-infarct dementia. PLAN: Patient's prognosis is guarded. Oral intake is somewhat limited. Diet as per Speech Therapy. I told the nurse to keep his head up about 45 degrees when they try to feed him. Looking at patient going to the [facility]. MMODL / IJN: [id number] /
[2018-01-28] MEDS: SODIUM CHLORIDE 0.9% 1,000 ML IV SCH ×2 (05:58→17:33)
[2018-01-28] MEDS: LEVOTHYROXINE 50 MCG TAB PO SCH (06:07)
[2018-01-28 07:10] LABS: Glucose,Whole Blood 197 mg/dL (75-99)
[2018-01-28 07:41] LABS: Basophils % (A) 1 %; Eosinophils # (A) 0.1 k/uL (0-0.7); Eosinophils % (A) 2 %; HCT 34.8 % (39.0-53.0); HGB 10.8 gm/dL (13.0-17.5); Lymphocytes # (A) 0.7 k/uL (1.0-4.8); Lymphocytes % (A) 12 %; MCH 31.3 pg (25.0-35.0); MCHC 31.1 g/dL (31.0-37.0); MCV 100.7 fL (80.0-100.0); Macrocytosis Slight; Mean Platelet Volume 6.8; Monocytes # (A) 0.4 k/uL (0-1.0); Monocytes % (A) 7 %; Neutrophils # (A) 4.3 k/uL (1.3-7.7); Neutrophils % (A) 77 %; Platelet Count 175 k/uL (150-450); RBC 3.46 m/uL (4.30-5.90); RDW 14.9 % (11.5-15.5); WBC 5.6 k/uL (3.8-10.6)
[2018-01-28 08:02] LABS: ALT 25 U/L (21-72); AST 21 U/L (17-59); Alkaline Phosphatase 53 U/L (38-126); Anion Gap 19 mmol/L; Blood Urea Nitrogen 8 mg/dL (9-20); Carbon Dioxide 17 mmol/L (22-30); Chloride 100 mmol/L (98-107); Glucose 181 mg/dL (74-99); Sodium 136 mmol/L (137-145); Total Bilirubin 0.7 mg/dL (0.2-1.3); Total Protein 5.5 g/dL (6.3-8.2)
[2018-01-28] MEDS: IPRATROPIUM-ALBUTEROL 3 ML NEB INHALATION SCH ×4 (08:03→19:52)
[2018-01-28 08:04] LABS: Potassium 3.1 mmol/L (3.5-5.1)
[2018-01-28] MEDS: CALCIUM CARBONATE LIQUID 500 MG/5 ML CUP PO SCH ×3 (09:27→17:24)
[2018-01-28] MEDS: INSULIN ASPART 100 UNIT/ML 1 ML 10 ML VIAL SQ SCH ×3 (09:27→17:24)
[2018-01-28] MEDS: DIVALPROEX 500 MG TABLET.DR PO SCH ×2 (09:28→17:24)
[2018-01-28] MEDS: ATORVASTATIN 40 MG TAB PO SCH (09:28)
[2018-01-28] MEDS: AMOXIC-POT CLAV 875-125MG 1 EACH TAB PO SCH (09:28)
[2018-01-28] MEDS: FENOFIBRATE 160 MG TAB PO SCH (09:28)
[2018-01-28] MEDS: SERTRALINE 25 MG TAB PO SCH (09:28)
[2018-01-28] MEDS: METOCLOPRAMIDE 5 MG TAB PO SCH (09:28)
[2018-01-28] MEDS: PANTOPRAZOLE 40 MG TABLET PO SCH ×2 (09:28→17:25)
[2018-01-28] MEDS: POTASSIUM CHLORIDE ER 20 MEQ TAB.ER PO SCH (09:28)
[2018-01-28] MEDS: ASPIRIN 81 MG PO SCH (09:28)
[2018-01-28] MEDS: ENOXAPARIN 40 MG/0.4 ML SYRINGE SQ SCH (09:28)
[2018-01-28] MEDS: DOXAZOSIN 1 MG TAB PO SCH (09:28)
[2018-01-28] MEDS: levETIRAcetam 500 MG TAB PO SCH (09:28)
[2018-01-28 12:06] LABS: Glucose,Whole Blood 225 mg/dL (75-99)
[2018-01-28 15:38] VITALS: BP 160/82; RESP 36; TEMP 99.7
--- NOTE | 2018-01-28 15:59 | PN ---
PROGRESS NOTE DATE OF SERVICE: 01/28/2018 REASON FOR FOLLOWUP: Aspiration pneumonia. INTERVAL HISTORY: The patient is currently afebrile. He is breathing comfortably. He remains sleepy but easily arousable. No nausea or vomiting has been noticed or any diarrhea. PHYSICAL EXAMINATION: Blood pressure is 192/62 with a pulse of 100, temperature 98.8. He is 96% on 2 L nasal cannula. General description is a middle-aged male lying in bed in no distress. RESPIRATORY SYSTEM: Unlabored breathing. Clear to auscultation anteriorly. HEART: S1, S2. Regular rate and rhythm. ABDOMEN: Soft. No tenderness. LABS: Hemoglobin is 10.8, white count 5.6, BUN of 8 creatinine 0.53. DIAGNOSTIC IMPRESSION AND PLAN: Patient with fever, source likely aspiration pneumonitis. Sputum has been negative for any pneumonia. The patient did have a videofluoroscopic swallow exam which was a suboptimal study. No lung aspiration was observed. Currently on oral Augmentin, to continue for another few days to finish a course of therapy. Continue with supportive care. MMODL / IJN: [id number] /
[2018-01-28 17:03] LABS: Glucose,Whole Blood 205 mg/dL (75-99)
--- NOTE | 2018-01-28 18:17 | P.PN ---
Subjective Progress Note Date: 01/28/18 Principal diagnosis: Altered mental status, fever of unknown region, acute hypoxic respirator failure , severe morbid obesity, old CVA with left hemiparesis, uncontrolled diabetes mellitus and hyperglycemia on insulin pump, seizure disorder, dyslipidemia, coronary artery disease 01/28/2018, patient seen eval examined during the rounds and reevaluated after patient had an episode of tachypnea and respiratory rate into the 30s and 40s at that time emergent computed tomography scan of the chest was ordered currently pending patient was initiated on subcu heparin as well patient continue to be afebrile, computed tomography scan of the chest is on hold as primary service leaning towards hospice discussion which are pending however remains on broad-spectrum antibiotics as per recommendation of infectious disease services now switched to oral, labs reviewed white cell count remains normal chemistry however indicated Of hypokalemia 01/27/2018, patient seen eval examined during the rounds clinically doing better in terms of respirator standpoint awake, patient has been making simple conversation denies any cough or sputum production denies any chest pain breathing comfortably labs reviewed medications reviewed, laboratory data reviewed, patient is status post swallow evaluation no significant aspiration has been noted 01/26/2018, patient seen eval examined during the rounds clinically patient is doing well awake breathing, however patient is mostly somnolent but readily arousable, labs reviewed medications reviewed 01/25/2018, patient seen eval examined during the rounds clinically patient hemodynamically and respiratory standpoint is better but mental status remains marginal patient is awake but mostly noncommunicative, sometimes do a conversation as per report, neurology is following the patient is undergoing active physical therapy last chest x-ray right lower lobe subsegmental atelectasis noted with a right-sided rib fractures small resolving right-sided aspiration pneumonia cannot be excluded 01/24/2018, patient seen eval reexamined during the rounds clinically patient to not much change from the baseline, somnolent but arousable neuro and the ID service has been following computed tomography scan of the head was performed no significant pathology has been noted, patient is getting broad-spectrum antibiotics and continued on clear therapy for chronic persistent severe asthma Objective - Vital Signs Vital signs: Vital Signs Temp 99.7 F H 01/28/18 14:26 Pulse 100 01/28/18 16:18 Resp 36 H 01/28/18 16:00 BP 160/82 01/28/18 14:26 Pulse Ox 100 01/28/18 14:26 Intake & Output 01/27/18 01/28/18 01/28/18 18:59 06:59 18:59 Intake Total 400 930 350 Output Total 1900 1300 800 Balance -1500 -370 -450 Intake: IV 400 340 350 Sodium Chloride 0.9% 1, 400 340 350 000 ml @ 50 mls/hr IV . Q20H [facility] Rx#:[id number] Oral 590 Output: Urine 1900 1300 800 Uretheral ([place]) 1300 800 Other: Voiding Method Indwelling Catheter Indwelling Catheter Indwelling Catheter # Bowel Movements 1 1 ABP, PAP, CO, CI - Last Documented Arterial Blood Pressure 119/54 - Exam GENERAL APPEARANCE: Patient is a male who appears to be in no acute distress. Remains tachypneic, severity has improved otherwise rest of the vitals are stable HEENT: Normocephalic, atraumatic, no facial asymmetry is seen. Neck is supple with no masses felt. CARDIOVASCULAR: Regular rate and rhythm. ABDOMEN: Nontender, nondistended. Obese. EXTREMITIES: Show edema but no clubbing. NEUROLOGICAL EXAM: Patient is awake, alert, and oriented 3. He is extremely hard of hearing - Labs CBC & Chem 7: 01/28/18 07:03 01/28/18 07:03 Labs: Abnormal Lab Results - Last 24 Hours (Table) 01/27/18 01/28/18 01/28/18 Range/Units 20:10 06:58 07:03 RBC 3.46 L (4.30-5.90) m/uL Hgb 10.8 L (13.0-17.5) gm/dL Hct 34.8 L (39.0-53.0) % MCV 100.7 H (80.0-100.0) fL Lymphocytes # 0.7 L (1.0-4.8) k/uL Sodium (137-145) mmol/L Potassium (3.5-5.1) mmol/L Carbon Dioxide (22-30) mmol/L BUN (9-20) mg/dL Creatinine (0.66-1.25) mg/dL Glucose (74-99) mg/dL POC Glucose (mg/dL) 195 H 197 H (75-99) mg/dL Calcium (8.4-10.2) mg/dL Total Protein (6.3-8.2) g/dL Albumin (3.5-5.0) g/dL 01/28/18 01/28/18 01/28/18 Range/Units 07:03 11:59 17:01 RBC (4.30-5.90) m/uL Hgb (13.0-17.5) gm/dL Hct (39.0-53.0) % MCV (80.0-100.0) fL Lymphocytes # (1.0-4.8) k/uL Sodium 136 L (137-145) mmol/L Potassium 3.1 L (3.5-5.1) mmol/L Carbon Dioxide 17 L (22-30) mmol/L BUN 8 L (9-20) mg/dL Creatinine 0.58 L (0.66-1.25) mg/dL Glucose 181 H (74-99) mg/dL POC Glucose (mg/dL) 225 H 205 H (75-99) mg/dL Calcium 8.0 L (8.4-10.2) mg/dL Total Protein 5.5 L (6.3-8.2) g/dL Albumin 3.0 L (3.5-5.0) g/dL Assessment and Plan Assessment: 1 altered mentation with diminished level of consciousness with a febrile episodes which was worked up and the workup is essentially negative at this point. 2 acute respiratory failure secondary to above. Aspiration pneumonia 3 acute febrile illness along with tachycardia and hypotension. 4 obesity with a BMI 44.8 5 CVA with left-sided hemiplegia and the patient is a wheelchair-bound gentleman 6 diabetes mellitus maintained on insulin pump on outpatient basis currently off the insulin pump and the patient is on a NovoLog size scattered coverage 7 history of seizure disorder 8 hyperlipidemia 9 coronary artery disease 10 severe persistent bronchial asthma 11 hypothyroidism 12 impaired hearing Plan: Continue breathing treatments Continue broad-spectrum oral antibiotics Continuation of home medications Seizure precautions Maintain patient on DVT and peptic ulcer disease prophylaxis Further recommendations pending plan of care as per clinical response of the patient Patient likely will be placed in extended care facility Awaiting results of the discussion between the primary service and family Time with Patient: Greater than 30
[2018-01-28 19:55] VITALS: PULSE 100
[2018-01-28] MEDS ORDERED: MORPHINE SULFATE 2 MG/ML SYRINGE IVP PRN ×3 (20:02→20:03)
[2018-01-28 20:29] LABS: Glucose,Whole Blood 204 mg/dL (75-99)
--- NOTE | 2018-01-28 23:50 | DS ---
DISCHARGE SUMMARY DATE OF ADMISSION: 01/18/2018 DATE OF DISCHARGE: 01/28/2018 FINAL DIAGNOSES: 1. Severe sepsis from pneumonia. 2. Metabolic encephalopathy from underlying infection. 3. Moderate persistent asthma with acute exacerbation. 4. Chronic dysphagia, currently on a pureed diet. 5. Acute hypoxic respiratory failure, status post being on the ventilator. 6. 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 7. Diabetes mellitus type 2, chronically on insulin, uncontrolled with hypoglycemia and hyperglycemia. 8. Gastroesophageal reflux disease. 9. Hyperlipidemia. 10.Essential hypertension. 11.Chronic memory impairment. 12.Primary osteoarthritis. 13.Hypothyroidism. 14.Peripheral neuropathy secondary to diabetes next. 15.Mild cognitive impairment, probably from multi-infarct dementia. CONSULTATION: Dr. Cj Kumar from pulmonary, Dr. Gasca from infectious disease. Dr. Mulligan from neurology. HOSPITAL COURSE: This patient with stroke affecting one side from before, very hard of hearing, presented with pneumonia, sepsis. When patient initially presented, Dr. Gasca wanted to do an LP, but the did not want to do that. The patient did improve temporally, but kept having bouts of increasing lethargy. Patient had repeated evaluations by a speech therapist. Patient started choking yet again today and afterward, the decision was made with the family to proceed with proceed with comfort care/hospice. DISPOSITION: Inpatient hospice. MEDICATIONS: For comfort care. I talked to the nurse at length. I spoke to the at length this morning. DISCUSSION AND DISCHARGE PLANNING: More than 35 minutes. ADVANCED CARE PLANNING: I had a family meeting this evening with the patient's , [id number], son and daughter and after discussion was held about the overall guarded prognosis and patient's overall failing health, they all understood that he has continued to do poorly and would not wish to have any artificial feeding, including a PEG tube. Hence, all other medication and treatment plan is being discontinued. Hospice will be consulted. The patient's family chose [facility]. Total time spent for advanced care planning was about 30 minutes in addition to the discharge planning. LAWSON / BENNETT: [id number] /
== END 2018-01-28 23:06 | disposition hospice, inpatient (51) | DRG 871 ==
LOC: EC 08:13 → 6SEL 12:42 → 6ICU 01-19 03:36 → 6SEL 01-22 14:20 → 5MS5E 01-25 05:39
PROVIDERS: ADMIT Hospitalist; ATTEND Hospitalist
PROC: 5A1945Z Respiratory Ventilation, 24-96 Consecutive Hours (ICD-10-PCS; principal; 2018-01-19)
PROC: 0BH17EZ Insertion of Endotracheal Airway into Trachea, Via Natural or Artificial Opening (ICD-10-PCS; 2018-01-19)
PROC: 03HY32Z Insertion of Monitoring Device into Upper Artery, Percutaneous Approach (ICD-10-PCS; 2018-01-19)
PROC: 4A133B1 Monitoring of Arterial Pressure, Peripheral, Percutaneous Approach (ICD-10-PCS; 2018-01-19)
PROC: 4A133J1 Monitoring of Arterial Pulse, Peripheral, Percutaneous Approach (ICD-10-PCS; 2018-01-19)
PROC: 02HV33Z Insertion of Infusion Device into Superior Vena Cava, Percutaneous Approach (ICD-10-PCS; 2018-01-19)
DX: A41.9 Sepsis, unspecified organism (principal); J69.0 Pneumonitis due to inhalation of food and vomit; G93.41 Metabolic encephalopathy; J96.01 Acute respiratory failure with hypoxia; J45.41 Moderate persistent asthma with (acute) exacerbation; E66.2 Morbid (severe) obesity with alveolar hypoventilation; E87.1 Hypo-osmolality and hyponatremia; E87.2 Acidosis; I69.354 Hemiplegia and hemiparesis following cerebral infarction affecting left non-dominant side; J98.11 Atelectasis; Z68.41 Body mass index [BMI] 40.0-44.9, adult; R65.20 Severe sepsis without septic shock; E03.9 Hypothyroidism, unspecified; E11.42 Type 2 diabetes mellitus with diabetic polyneuropathy; E11.649 Type 2 diabetes mellitus with hypoglycemia without coma; E11.65 Type 2 diabetes mellitus with hyperglycemia; E78.5 Hyperlipidemia, unspecified; E86.0 Dehydration; F01.50 Vascular dementia, unspecified severity, without behavioral disturbance, psychotic disturbance, mood disturbance, and anxiety; G31.84 Mild cognitive impairment of uncertain or unknown etiology; G40.909 Epilepsy, unspecified, not intractable, without status epilepticus; H91.90 Unspecified hearing loss, unspecified ear; I11.0 Hypertensive heart disease with heart failure; I25.10 Atherosclerotic heart disease of native coronary artery without angina pectoris; I25.2 Old myocardial infarction; I50.9 Heart failure, unspecified; I69.311 Memory deficit following cerebral infarction; J44.9 Chronic obstructive pulmonary disease, unspecified; K21.9 Gastro-esophageal reflux disease without esophagitis; K76.0 Fatty (change of) liver, not elsewhere classified; K86.89 Other specified diseases of pancreas; M19.91 Primary osteoarthritis, unspecified site; M79.7 Fibromyalgia; N28.1 Cyst of kidney, acquired; R13.10 Dysphagia, unspecified; R32 Unspecified urinary incontinence; R48.0 Dyslexia and alexia; W06.XXXA Fall from bed, initial encounter; Z66 Do not resuscitate; Z79.4 Long term (current) use of insulin; Z79.51 Long term (current) use of inhaled steroids; Z79.82 Long term (current) use of aspirin; Z79.899 Other long term (current) drug therapy; Z82.0 Family history of epilepsy and other diseases of the nervous system; Z82.3 Family history of stroke; Z82.49 Family history of ischemic heart disease and other diseases of the circulatory system; Z83.3 Family history of diabetes mellitus; Z96.41 Presence of insulin pump (external) (internal); Z99.3 Dependence on wheelchair; Z88.2 Allergy status to sulfonamides; Z88.8 Allergy status to other drugs, medicaments and biological substances; Z51.5 Encounter for palliative care; K59.09 Other constipation; M46.90 Unspecified inflammatory spondylopathy, site unspecified; Z87.01 Personal history of pneumonia (recurrent)
CPT/HCPCS: 36415; 36600; 70450; 71045; 71260; 74177; 74230; 80048; 80053; 80164; 80177; 80202; 81001; 81003; 82009; 82310; 82803; 82805; 83036; 83605; 83735; 84100; 84132; 85025; 85610; 85730; 86694; 86695; 86696; 87040; 87070; 87086; 87205; 87502; 93005; 93306; 94002; 94003; 94640; 94660; 94760; 95816; 96361; 96365; 96366; 96367; 96375; 99291

== ENCOUNTER 2018-01-28 23:09 | Inpatient (IN) | payer OTHER ==
[2018-01-28 23:45] VITALS: BMI 44.8
[2018-01-28] MEDS ORDERED: ONDANSETRON 4 MG/2 ML VIAL IVP PRN (23:47)
[2018-01-28] MEDS ORDERED: HALOPERIDOL LACTATE 5 MG/ML 1 ML VIAL IM PRN (23:47)
[2018-01-28] MEDS ORDERED: ARTIFICIAL TEARS-HYPROMELLOSE DROPS 15 ML BTL BOTH EYES PRN (23:47)
[2018-01-28] MEDS ORDERED: DRY MOUTH SPRAY 44.3 SPRAY/44.3 ML SPRAY MUCOUS MEM PRN (23:47)
[2018-01-28] MEDS ORDERED: ACETAMINOPHEN SUPPOSITORY 650 MG SUPP RECTAL PRN (23:47)
[2018-01-28] MEDS ORDERED: ATROPINE OPHTH SOLN 1% 5ML BTL SUBLINGUAL PRN (23:47)
[2018-01-29] MEDS: MORPHINE SULFATE 2 MG/ML SYRINGE IVP PRN ×7 (00:53→17:45)
[2018-01-29 01:15] VITALS: BP 145/65; TEMP 99.4
[2018-01-29] MEDS: LORazepam 2 MG/ML INJ IV PRN ×3 (01:29→18:21)
[2018-01-29 07:26] VITALS: PULSE 108
--- NOTE | 2018-01-29 14:09 | PN ---
PROGRESS NOTE DATE OF SERVICE: 01/29/18 PRESENTING COMPLAINT: Short of breath. INTERVAL HISTORY: This is a patient with stroke, recently in the hospital with sepsis, but made inpatient hospice last night. Breathing a bit heavy, not communicating. REVIEW OF SYSTEMS: The patient is breathing heavy. The patient is otherwise not able to communicate. CURRENT MEDICATIONS: Reviewed that include IV Ativan IV morphine, Artificial Tears. EXAMINATION: Pulse 108, respiration 30, respiratory rate increased, decreased breath sounds. CARDIOVASCULAR: 1st and 2nd sounds normal. The patient is lethargic but responds. ASSESSMENT: 1. End of life care with hospice care. 2. Reason for hospice: Stroke. PLAN: Care was discussed with the son at the bedside. Questions were answered. The patient is otherwise comfortable. Hospice is following. MMODL / IJN: [id number] /
[2018-01-30] MEDS: MORPHINE SULFATE 2 MG/ML SYRINGE IVP PRN ×2 (00:41→07:26)
[2018-01-30 02:09] VITALS: RESP 36
[2018-01-30] MEDS: LORazepam 2 MG/ML INJ IV PRN ×2 (05:53→10:01)
== END 2018-01-30 10:30 | disposition hospice, inpatient (51) | DRG 951 ==
LOC: 5MS5E 23:09
PROVIDERS: ADMIT Hospitalist; ATTEND Hospitalist
DX: Z51.5 Encounter for palliative care (principal); I63.9 Cerebral infarction, unspecified; A41.9 Sepsis, unspecified organism; R65.20 Severe sepsis without septic shock; J18.9 Pneumonia, unspecified organism; G93.41 Metabolic encephalopathy; J96.01 Acute respiratory failure with hypoxia; J45.901 Unspecified asthma with (acute) exacerbation; G81.94 Hemiplegia, unspecified affecting left nondominant side; R13.10 Dysphagia, unspecified; E11.65 Type 2 diabetes mellitus with hyperglycemia; E11.649 Type 2 diabetes mellitus with hypoglycemia without coma; K21.9 Gastro-esophageal reflux disease without esophagitis; E78.5 Hyperlipidemia, unspecified; I10 Essential (primary) hypertension; M19.90 Unspecified osteoarthritis, unspecified site; E11.42 Type 2 diabetes mellitus with diabetic polyneuropathy; E03.9 Hypothyroidism, unspecified; F01.50 Vascular dementia, unspecified severity, without behavioral disturbance, psychotic disturbance, mood disturbance, and anxiety